=== PATIENT | male | born 1950 ===

== ENCOUNTER 2023-08-28 15:48 | Observation (INO) | payer MEDICARE, OTHER, SELFPAY ==
[2023-08-28] VITALS (9 sets, daily range): BP systolic 125–163; BP diastolic 54–76; BMI 26.8; BMI 25.9
[2023-08-28 12:02] LABS: % Basophils 0.7 % (0-2); % Eosinophils 1.4 % (0-6); % Immature Granulocytes 0.4 % (0-0.5); % Lymphocytes 13.1 % (20.5-51.1); % Monocytes 9.7 % (1.7-9.3); % Neutrophils 74.7 % (42.2-75.2); Absolute Basophils 0.1 10^3/uL (0-0.2); Absolute Eosinophils 0.1 10^3/uL (0-0.7); Absolute Lymphocytes 1.2 10^3/uL (1.2-3.4); Absolute Monocytes 0.9 10^3/uL (0.1-0.6); Absolute Neutrophils 7.1 10^3/uL (1.4-6.5); Hematocrit 29.7 % (39.0-52.0); Hemoglobin 9.8 g/dL (13.0-18.0); Mean Corpuscular Hgb 29.4 pg (27.0-31.0); Mean Corpuscular Volume 89.2 fL (80.0-94.0); Mean Platelet Volume 10.5 fL (7.4-10.4); Nucleated Red Blood Cells % 0 % (-); Platelet Count 175 10^3/uL (130-400); Red Blood Cell Count 3.33 10^6/uL (4.70-6.10); Red Cell Dist. Width 15.2 % (11.5-14.5); White Blood Cell Count 9.5 10^3/uL (4.8-10.8)
[2023-08-28 12:24] LABS: NT-proBNP > 27000 pg/ml
[2023-08-28 12:50] LABS: ALT (SGPT) 17 U/L (0-50); AST (SGOT) 41 U/L (17-59); Albumin 3.1 g/dl (3.5-5.0); Alkaline Phosphatase 72 U/L (38-126); Blood Urea Nitrogen 17 mg/dl (9-20); Calcium 10.1 mg/dl (8.4-10.2); Carbon Dioxide 26 mmol/L (22-30); Chloride 94 mmol/L (98-107); Estimated Creatinine Clearance 8 ml/min; Glucose 91 mg/dl (70-99); Potassium 3.8 mmol/L (3.5-5.1); Sodium 128 mmol/L (135-145); Total Bilirubin 0.8 mg/dl (0.2-1.3); Total Protein 5.5 g/dl (6.3-8.2); eGFR 7.39
[2023-08-28 13:04] LABS: Ammonia < 9 umol/L (9-30); Lactic Acid 1.2 mmol/L (0.7-2.0)
--- NOTE | 2023-08-28 13:48 | ED.GENMED ---
History of Present Illness
General
Chief Complaint: Weakness
Source: patient and family
Time Seen by Provider: 08/28/23 11:41
Travel History
Have you had any contact with someone who has COVID-19?: No
Do you have any symptoms of coronavirus? Fever > 100 degrees, chills, cough, shortness of breath, sore throat, loss of taste or smell, muscle aches, or headache?: No
History of Present Illness
History of Present Illness:
73-year-old male who is on dialysis who presents with lower extremity edema and progressive weakness and lethargy. He states that he has been confused and off balance. He was recently admitted for low hemoglobin to [facility]. Patient is
had no fevers. No trauma. His last dialysis was Monday. Patient states he just feels tired. No new medication changes that daughter is aware of. Patient denies any pain
Past History
Past History
ED Past Medical History: CVA, HTN, Hypercholesterolemia, NIDDM and Other (Prostate cancer)
Phy Exam
Physical Exam
Physical Exam:
CONSTITUTIONAL Patient alert and oriented to person, place and time. Vital signs reviewed.
HEAD atraumatic, normocephalic.
EYES eyelids normal to inspection, Extraocular muscles intact, Conjunctiva normal, Sclera normal.
NECK normal range of motion, Trachea midline, no jugular venous distention.
RESPIRATORY CHEST No respiratory distress noted, Chest expansion equal, Bilateral breath sounds clear.
CARDIOVASCULAR regular rate and rhythm, loud 4-5 out of 6 systolic ejection murmur
ABDOMEN abdomen nontender, Bowel sounds normal. No distention.
BACK normal inspection, no obvious deformities
UPPER EXTREMITY range of motion normal, Motor strength normal, no cyanosis, no edema.
LOWER EXTREMITY range of motion normal, Motor strength normal, no cyanosis, bilateral edema noted
NEURO Speech normal, No focal motor deficits Memory normal, Cranial Nerves intact to screening exam. No asterixis. Sleeping but easily arousable by voice
SKIN skin warm, dry, and normal in color.
Course
Orders/Labs/Results
Orders:
Orders
08/28/23 11:42
IV Insert/Care/Rem.- Treatment PRN
08/28/23 11:48
BNP [NT-proBNP] Urgent
Complete Blood Count/With Diff Urgent
Comprehensive Metabolic Panel Urgent
08/28/23 12:30
CT Head W/o Iv Contrast Stat
Comment:
Reason For Exam: change in ms
Urinalysis Reflex To Culture Urgent
Date Specimen was Collected: 08/28/23
Time Specimen was Collected: 13:55
08/28/23 12:37
Blood Culture Q30M
JANIA Source: Blood/Venous
Specimen Description:
Blood Culture Q30M
JANIA Source: Blood/Venous
Specimen Description:
08/28/23 12:38
Ammonia Urgent
Lactic Acid Q4H
Comment: CANCEL 2nd LACTIC ACID IF 1st LACTIC ACID IS LESS THAN 2
08/28/23 13:53
Electrocardiogram (*1) Urgent
Reason for Study: Other
Other Reason for Exam: Change in mental status
EKG- Treatment ONCE
08/28/23 14:19
Venous Blood Gas Urgent
%Oxygen/Room Air: RA
Abnormal Lab Results
08/28/23 08/28/23
11:48 12:38
RBC 3.33 L 10^6/uL
(4.70-6.10)
Hgb 9.8 L g/dL
(13.0-18.0)
Hct 29.7 L %
(39.0-52.0)
RDW 15.2 H %
(11.5-14.5)
MPV 10.5 H fL
(7.4-10.4)
Absolute Neuts (auto) 7.1 H 10^3/uL
(1.4-6.5)
Absolute Monos (auto) 0.9 H 10^3/uL
(0.1-0.6)
Lymphocytes % 13.1 L %
(20.5-51.1)
Monocytes % 9.7 H %
(1.7-9.3)
Sodium 128 L mmol/L
(135-145)
Chloride 94 L mmol/L
(98-107)
Creatinine 7.2 H* mg/dL
(0.7-1.3)
Ammonia < 9 L umol/L
(9-30)
Total Protein 5.5 L g/dl
(6.3-8.2)
Albumin 3.1 L g/dl
(3.5-5.0)
08/28/23 11:48
08/28/23 11:48
Vital Signs
Initial and Last Documented VS:
Initial Vital Signs
Temp Pulse Resp BP Pulse Ox
98.9 F 73 16 163/66 96
08/28/23 10:57 08/28/23 10:57 08/28/23 10:57 08/28/23 10:57 08/28/23 10:57
Last Documented Vital Signs
Temp Pulse Resp BP Pulse Ox
98.9 F 71 17 125/54 96
08/28/23 10:57 08/28/23 13:15 08/28/23 13:15 08/28/23 12:00 08/28/23 13:15
MDM/Problems Addressed
MDM/Problems Addressed:
Change in mental status, chronic renal failure, volume overload, lower extremity edema, heart murmur
*Radiology
Radiology exam reviewed: preliminary read by ED provider (no bleed)
*Pulse Oximetry
Patient hypoxic: no
*EKG
Interpreted by ED Provider?: Yes
Interpretation: normal
Rate: normal
Rhythm: sinus
QRS Pattern: poor R-wave progression
Ischemia: non-specific ST changes
*Ui Software Developer Interpretation
Rate: normal
Interpretation: normal
Rhythm: sinus
*Critical Care Note
Total Time (30-74mins, 75-104mins- exclusive of procedures): Not Applicable
Data Reviewed
Source: patient
Patient Management
Discussion with other providers: Hospitalist
Escalation/DeEscalation of care consider admission/obs:
73-year-old male with history of end-stage renal disease who presents with lower extremity edema as well as altered mentation. During exam, patient does seem to fall asleep but is easily arousable. Unclear etiology but urinalysis pending (patient
does not make much urine). In addition, blood cultures pending. Check ABG. Admit. Could certainly be metabolic encephalopathy related to chronic renal failure. Patient does have a loud murmur. Daughter states she does not know of a heart
murmur that he has had but I do suspect this is not new. May be contributing however to his lower extremity edema.
ED Attending Note
-
Portions of this chart may have been created with voice recognition software.� Occasional wrong word or��sound alike� substitutions may have occurred due to the inherent limitations of voice recognition software.
Discharge Plan
Departure
Patient Disposition: Admit
Date of Disposition: 08/28/23
Time of Disposition: 14:23
Admit to: Telemetry
Presentation/result/management discussed w/ accepting MD/DO: Hospitalist
Discharge Problem:
Acute alteration in mental status, Chronic renal failure, Heart murmur, systolic
Prescriptions:
No Action
atorvastatin 40 mg Tablet
40 mg PO QPM
carvedilol 25 mg Tablet
25 mg PO BID
clopidogrel [Plavix] 75 mg Tablet
75 mg PO DAILY
amlodipine 5 mg Tablet
5 mg PO DAILY
allopurinol 100 mg Tablet
100 mg PO QPM
aspirin [Baby Aspirin] 81 mg Tablet,Chewable
81 mg PO NOON
cholecalciferol (vitamin D3) [Vitamin D3] 25 mcg (1,000 unit) Tablet,Chewable
25 mcg PO NOON
levothyroxine 50 mcg Capsule
50 mcg PO DAILY
sevelamer carbonate [Renvela] 800 mg Tablet
1,600 mg PO TID
Melyssa-Charleen Rx 1-60-300 mg-mg-mcg Tablet
1 tab PO NOON
Referrals:
Peter Santiago DO [Family Provider] -
Interventions
Interventions:
*Risk Screen - Suicide Last Done: 08/28/23 11:40
*General Assessment Last Done: 08/28/23 11:40
*Neglect/Abuse Screening Last Done: 08/28/23 11:40
ED- Fall Risk Assessment Last Done: 08/28/23 11:41
*ED COVID-19 Vaccine History Last Done: 08/28/23 10:57
ED- Cardiac Assessment Last Done: 08/28/23 11:40
ED- Neurological Assessment Last Done: 08/28/23 11:41
ED- Pulmonary Assessment Last Done: 08/28/23 11:41
[2023-08-28 14:44] LABS: Venous Blood Gas B.E. 3.6 mmol/L (-4 to +4); Venous Blood Gas HCO3 27.7 mmol/L (22-27); Venous Blood Gas pCO2 39 mmHg (35-48); Venous Blood Gas pH 7.46 (7.32-7.43); Venous Blood Gas pO2 190 mmHg (30-50)
[2023-08-28 14:46] LABS: Venous Blood Gas O2 Therapy RA
--- NOTE | 2023-08-28 14:59 | HPS.HSE ---
Addendum entered and electronically signed by Nabor Ferrer MD 08/28/23 15:56:
I saw and examined the patient.
The SKIN FITTER or PA's note was reviewed and I agree with the note.
Comment: 73-year-old male with past medical history of CVA, hypertension, ESRD on hemodialysis, diabetes mellitus, prostate cancer came to the hospital with progressive weakness, lethargy and lower extremity edema. Patient had a full dialysis
session on Monday. Denies any chest pain, shortness of breath. Check PT OT. Duplex lower extremity. Check echo. Nephrology evaluation. Obs, daughter aware
General:�No Apparent Distress, Comfortable and Conversant; No Pain or Fever
HEENT:�NormoCephalic, Anicteric, PERRLA, [place] Conjunctivae, No Ptosis and Other (Chronic left facial droop from prior CVA August 2022)
Respiratory:�Clear; No Wheezes, Rales or Rhonchi
Cardiac:�S1/S2, Regular Rhythm, Murmur (4/6 systolic )
Breast:�Deferred by me
GI:�Soft, Non Tender, Non Distended, Normal Bowel Sounds
Musculoskeletal:�No Clubbing, No Cyanosis, Edema, b/l Lower Extremity edema
Skin:�Warm and Dry; No Rash
Neuro:�AO x 3, No Motor Deficits, Nonfocal/grossly intact
Psych:�Calm
Original Note:
Family Physician
-
Family Physician: Peter Santiago
Chief Complaint
-
Weakness, fatigue, confusion, lower extremity edema
History of Present Illness
73-year-old male end-stage renal disease on dialysis who came to the ER feeling off balance with progressive weakness, lethargy and lower extremity edema over the past 1.5 weeks. He reports his lower legs and feet have doubled in size. He denies
any known adjustments to his dialysis treatment. He states after dialysis on Monday 2 days ago he was 71.1 kg he is currently 75.3 kg= 4.2 KG weight gain. he reports he had a recent admission at [facility] for anemia on August 08. His
daughter states his hemoglobin was 9.3 at the time she does not believe he received any blood transfusion. This appears to be his prior baseline from visit here September 2022. His last dialysis was Monday08/26/23 with [facility]. He denies headache,
fever, chills, sore throat, chest pain, palpitations, shortness breath, cough, abdominal pain, nausea, vomiting, diarrhea, recent illness.
He has past medical history of ESRD on dialysis, HTN, HLD, DM2, CVA 09/05/2022, prostate cancer status post radiation 2017.
Medical History
Past Medical History
Past Medical History: Reports Other
Additional Past Medical History:
ESRD on dialysis
HTN
HLD
DM2
CVA 09/05/2022
prostate cancer.
Past Surgical History: Reports Other
Additional Past Surgical History:
Hernia repair 2021
left arm fistula 2019,
loop recorder 2022
Social History
Tobacco: Non-smoker
Alcohol: None
Drug: None
Personal: Single
Living: With Family (daughter sammi)
Employment: Retired
Family History
Family History: Other (old age )
Allergies / Home Medications
Allergies reflects when Allergies were last updated in [employer].
Home Medications with original date entered in [employer]
Allergy/Medication List:
Allergies
Allergy/AdvReac Type Severity Reaction Status Date / Time
No Known Allergies Allergy Verified 08/28/23 10:59
Home Medications
allopurinol 100 mg tablet 100 mg PO QPM 10/11/22
amlodipine 5 mg tablet 5 mg PO DAILY 10/11/22
aspirin 81 mg chewable tablet 81 mg PO NOON 10/11/22
atorvastatin 40 mg tablet 40 mg PO QPM 10/11/22
carvedilol 25 mg tablet 25 mg PO BID 10/11/22
cholecalciferol (vitamin D3) 25 mcg (1,000 unit) chewable tablet (Vitamin D3) 25 mcg PO NOON 10/11/22
levothyroxine 50 mcg capsule 50 mcg PO DAILY 10/11/22
sevelamer carbonate 800 mg tablet (Renvela) 1,600 mg PO TID 08/28/23
vitamin B comp no.3-folic acid 1 mg-vit C 60 mg-biotin 300 mcg tablet (Melyssa-Charleen Rx) 1 tab PO NOON 08/28/23
Review of Systems
-
History Source: Patient and Family (daughter sammi)
A 12 point ROS was completed and negative except as noted: Yes
Constitutional: Reports Fatigue; Denies Fever or Chills
EENT: Denies Sore Throat or Runny Nose
Respiratory: Denies Cough or Trouble Breathing
Cardiac: Denies Chest Pain, Diaphoresis, Palpitations or Syncope
Abdomen/GI: Denies Abdominal Pain, Nausea, Vomiting, Diarrhea, Constipated, Bloody Stools or Black Stools
: Denies Dysuria or Frequency
Musculoskeletal: Reports Edema (bilat legs +2 legs +3 feet ); Denies Joint Pain
Skin: Denies Itching or Rash
Neurological: Reports Weakness; Denies Dizzy or Headache
Endocrine: Reports No Symptoms
Hematologic/Lymphatic: Reports No Symptoms
Physical Exam
Vital Signs
Vital Signs
Temp Pulse Resp BP Pulse Ox
98.9 F 71 17 125/54 96
08/28/23 10:57 08/28/23 13:15 08/28/23 13:15 08/28/23 12:00 08/28/23 13:15
Physical Exam
General: No Apparent Distress, Comfortable and Conversant; No Pain or Fever
HEENT: NormoCephalic, Anicteric, PERRLA, [place] Conjunctivae, No Ptosis and Other (Chronic left facial droop from prior CVA August 2022)
Respiratory: Clear; No Wheezes, Rales or Rhonchi
Cardiac: S1/S2, Regular Rhythm, Murmur (4/6 systolic ) and Peripheral Edema (+2 legs +3pedal nonpitting)
Breast: Deferred by me
GI: Soft, Non Tender, Non Distended, Normal Bowel Sounds and No Hepatosplenomegaly
Rectal: Deferred by Provider
Genito-urinary: Deferred by me
Musculoskeletal: No Clubbing, No Cyanosis, Edema, Left Lower Extremity (+2 legs +3pedal nonpitting) and Edema, Right Lower Extremity (+2 legs +3pedal nonpitting); No Edema, Left Upper Extremity or Edema, Right Upper Extremity
Skin: Warm and Dry; No Rash
Neuro: AO x 3, No Motor Deficits, Nonfocal/grossly intact, Cranial Nerves Intact and No Sensory Deficits; No Slurred Speech, Facial Droop or Tremors
Psych: Calm
Laboratory Results
-
08/28/23 11:48
08/28/23 11:48
Laboratory Results
Lactic Acid Cancelled 08/28/23 16:45
Total Bilirubin 0.8 mg/dl (0.2-1.3) 08/28/23 11:48
AST 41 U/L (17-59) 08/28/23 11:48
ALT 17 U/L (0-50) 08/28/23 11:48
Alkaline Phosphatase 72 U/L (38-126) 08/28/23 11:48
Data Reviewed
-
Lab Data: Labs Reviewed by me
Impression/Plan
-
Impression/plan:
Observation MedSurg
#Generalized weakness with ambulatory dysfunction
Peripheral edema
-Venous Doppler bilateral legs
-PT/OT/case management eval
#Hyponatremia
NA 128
-Urine Osmo, urine NA, serum Osmo, TSH with free T4 reflex
-Check flu, COVID swab
CT head: No acute intracranial abnormality.
Small areas of encephalomalacia along the right insular cortex probably related to prior ischemia
3 mm calcification right middle cerebral artery? Calcific embolus
EKG: Sinus rhythm with first-degree AV block 73 bpm, QTc 447 MS
#Cardiac murmur ? Old versus new
Will obtain records from [place] [facility] including echo
-2d echo
#ESRD on dialysis
#Left arm fistula 2019
Last dialysis 08/26/2023 dry weight 71.1 kg > 75.3 kg today= 4.2kg wt gain
Creat 7.2
-Consult Nephro
-Continue Renvela
#Chronic anemia
-Recent anemia at [facility]
Hgb 9.8 appears stable from September 2022
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
#Hx loop recorder 2022
-Continue aspirin, statin
#HTN�benign
BP 125/54
-Continue amlodipine 5 mg daily, carvedilol 25 mg twice daily
#Hypothyroidism
-Check TSH with free T4 reflex, continue levothyroxine
#Prostate cancer status post radiation in 2017
DVT prophylaxis
Subcu heparin
Full code
[2023-08-28 15:30] LABS: COVID-19 Antigen Negative (Negative)
--- NOTE | 2023-08-28 16:29 | W.CON.NEPH ---
Consultation
-
Date/Time Consultation Requested: 08/28/23 1600
Date/Time Consultation Performed: 08/28/23 1645
Requesting Provider: Nabor Llamas
Performing Provider: Marga Bojorquez
Reason for Consultation: ESRD
Medical History
-
Chief Complaint: Gen weakness and letahrgy with LE edema
History of Present Illness:
73-year-old male end-stage renal disease on dialysis TTS at [facility] , HTN on Amlodipine, coreg, hyperphosphatemia on Renvela, DM with out meds, hypothyroidism on LT4, CVA, prostate ca who came to the ER feeling off balance with progressive
weakness, lethargy and lower extremity edema over the past 1.5 weeks.�He states after dialysis on Monday 2 days ago he was 71.1 kg he is currently 75.3 kg= 4.2 KG weight gain.� he reports he had a recent admission at [facility] for similar
complaints of weakness and felt was from anemia on August 08.� His daughter states his hemoglobin was 9.3 at the time she does not believe he received any blood transfusion.� This appears to be his prior baseline from visit here September 2022.� His
last dialysis was Monday08/26/23 with [facility], reports no issues with HD getting UF or BPs.� He denies headache, fever, chills, chest pain, shortness breath, cough, abdominal pain, nausea, vomiting, diarrhea, recent illness.
Past Medical History
ESRD on dialysis
�HTN
HLD
�DM2
�CVA 09/05/2022
�prostate cancer.
Past Surgical History:
Hernia repair 2021
�left arm fistula 2019,
�loop recorder 2022
Social History
Tobacco: Non-Smoker
Alcohol: None
Personal: Single
Employment: Retired
Family History
Family History: Not Pertinent
Allergies / Home Medications
Allergy/AdvReac Type Severity Reaction Status Date / Time
No Known Allergies Allergy Verified 08/28/23 10:59
Medication Instructions Recorded Confirmed Type
allopurinol 100 mg tablet 100 mg PO QPM 10/11/22 08/28/23 History
amlodipine 5 mg tablet 5 mg PO DAILY 10/11/22 08/28/23 History
aspirin 81 mg chewable tablet 81 mg PO NOON 10/11/22 08/28/23 History
atorvastatin 40 mg tablet 40 mg PO QPM 10/11/22 08/28/23 History
carvedilol 25 mg tablet 25 mg PO BID 10/11/22 08/28/23 History
cholecalciferol (vitamin D3) 25 25 mcg PO NOON 10/11/22 08/28/23 History
mcg (1,000 unit) chewable tablet
(Vitamin D3)
levothyroxine 50 mcg capsule 50 mcg PO DAILY 10/11/22 08/28/23 History
sevelamer carbonate 800 mg tablet 1,600 mg PO TID 08/28/23 08/28/23 History
(Renvela)
vitamin B comp no.3-folic acid 1 1 tab PO NOON 08/28/23 08/28/23 History
mg-vit C 60 mg-biotin 300 mcg
tablet (Melyssa-Charleen Rx)
Review of Systems
-
All complete 12 point ROS have been inquired and found negative other than stated in HPI
Physical Exam
Vital Signs
Vital Signs
Temp Pulse Resp BP Pulse Ox
98.9 F 70 16 149/76 96
08/28/23 10:57 08/28/23 15:00 08/28/23 15:00 08/28/23 14:00 08/28/23 15:00
Lab Results
WBC 9.5 10^3/uL (4.8-10.8) 08/28/23 11:48
RBC 3.33 10^6/uL (4.70-6.10) L 08/28/23 11:48
Hgb 9.8 g/dL (13.0-18.0) L 08/28/23 11:48
Hct 29.7 % (39.0-52.0) L 08/28/23 11:48
Plt Count 175 10^3/uL (130-400) 08/28/23 11:48
Sodium 128 mmol/L (135-145) L 08/28/23 11:48
Potassium 3.8 mmol/L (3.5-5.1) 08/28/23 11:48
Chloride 94 mmol/L (98-107) L 08/28/23 11:48
Carbon Dioxide 26 mmol/L (22-30) 08/28/23 11:48
BUN 17 mg/dl (9-20) 08/28/23 11:48
Creatinine 7.2 mg/dL (0.7-1.3) H* 08/28/23 11:48
eGFR 7.39 08/28/23 11:48
Glucose 91 mg/dl (70-99) 08/28/23 11:48
Calcium 10.1 mg/dl (8.4-10.2) 08/28/23 11:48
Vff-D-Cjkbtypjhff Pept > 63928 pg/ml 08/28/23 11:48
Albumin 3.1 g/dl (3.5-5.0) L 08/28/23 11:48
CT head:�No acute intracranial abnormality.
�� � � � � � � � � � � � Small areas of encephalomalacia along the right insular cortex probably related to prior ischemia
�� � � � � � � � � � � � 3 mm calcification right middle cerebral artery?� Calcific embolus
� � � � � ��EKG:�Sinus rhythm with first-degree AV block 73 bpm, QTc 447 MS
Physical Exam
General: Awake, Alert, Oriented, AOx3, No Distress and Nontoxic
HEENT: EOMI and Anicteric
Respiratory: Clear and Nonlabored Respirations
Cardiac: S1/S2, Regular Rate/Rhythm and Murmur
Abdomen: Soft, Nontender and Nondistended
Musculoskeletal: No Cyanosis and No Edema
Skin: No Rash
Neuro: Nonfocal/Grossly Intact
Psych: Other (slow to respond, answeres questions appropriately)
Assessment/Plan
-
IMP:
Generalized weakness with ambulatory dysfunction
Peripheral edema
Hyponatremia
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
Left arm fistula 2019
Chronic anemia
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
Hx loop recorder 2022
HTN�benign
Hypothyroidism
Prostate cancer status post radiation in 2017
K stone
PLan:
A/w gen weakness and lethargy for few weeks but LE edema for few days
completed HD on Monday , next HD tomorrow
hemodynamically stable
hb low seem chronic
Edema: agree to check duplex
will attempt UF tomorrow
need strict renal diet and FR 33 ounces/day
echo for murmur
resume home phos binders
hold BP meds before HD to allow UF
d/w daughter at bedside
Data Reviewed
-
Radiology: Report Reviewed by me
Medical Tests (Nuc Med, Echo etc): Other (EKG report noted NSR)
Labs: Labs Reviewed by me and Discussed with Family
[2023-08-28 18:40] LABS: TSH Reflex To Free T4 2.78 uIU/ml (0.47-4.68)
[2023-08-28 18:46] LABS: Osmolality Serum 273 mOsm/kg (275-300)
[2023-08-28] MEDS: LIPITOR 40 MG PO (20:07)
[2023-08-28] MEDS: ZYLOPRIM 100 MG PO (20:08)
[2023-08-28] MEDS: RENVELA 1600 MG PO (20:08)
[2023-08-28] MEDS: COREG 25 MG PO (20:08)
[2023-08-28] MEDS: HEPARIN 5000 UNITS SC (20:09)
[2023-08-28 20:58] LABS: Urine Albumin Trace (Neg - Trace); Urine Bilirubin Negative (Negative); Urine Character Clear (Clear); Urine Color Yellow; Urine Glucose Negative (Negative); Urine Ketone Negative (Negative); Urine Leukocyte Trace (Negative); Urine Nitrite Negative (Negative); Urine Occult Blood Trace (Negative); Urine Urobilinogen Negative (Neg - 1+)
[2023-08-28 21:06] LABS: Urine Red Blood Cell 0-2 /HPF (0-2); Urine Squamous Cell 0-2 /LPF (Few)
[2023-08-28 21:47] LABS: Osmolality Urine 173 mOsm/kg (300-900)
[2023-08-28 21:51] LABS: Urine Sodium 76 mmol/L (30-90)
[2023-08-28 22:21] LABS: Glucose - Point of Care 82 mg/dl (70-99)
--- NOTE | 2023-08-28 23:19 | PTCARENOTE ---
Patient arrived from the ED via stretcher at approximately 1930. Patient ambulated from stretcher to bed x1 assist. Patient complains of generalized weakness. Patient AAOx3, forgetful @ times, and mildly QUILEUTE. VSS as documented. Assessment as
documented. Patient oriented to room. Bed in lowest position. Call rosales within reach.
[2023-08-29] MEDS: SYNTHROID 50 MCG PO (05:11)
[2023-08-29 06:00] VITALS: BMI 25.5
[2023-08-29 06:02] LABS: % Basophils 0.6 % (0-2); % Eosinophils 1.8 % (0-6); % Immature Granulocytes 0.2 % (0-0.5); % Monocytes 9.1 % (1.7-9.3); % Neutrophils 75.3 % (42.2-75.2); Absolute Basophils 0.1 10^3/uL (0-0.2); Absolute Eosinophils 0.2 10^3/uL (0-0.7); Absolute Lymphocytes 1.3 10^3/uL (1.2-3.4); Absolute Monocytes 0.9 10^3/uL (0.1-0.6); Absolute Neutrophils 7.6 10^3/uL (1.4-6.5); Hematocrit 34.1 % (39.0-52.0); Hemoglobin 11.2 g/dL (13.0-18.0); Mean Corp Hgb Conc. 32.8 g/dL (33.0-37.0); Mean Corpuscular Hgb 29.3 pg (27.0-31.0); Mean Corpuscular Volume 89.3 fL (80.0-94.0); Mean Platelet Volume 10.8 fL (7.4-10.4); Nucleated Red Blood Cells % 0 % (-); Platelet Count 174 10^3/uL (130-400); Red Blood Cell Count 3.82 10^6/uL (4.70-6.10); Red Cell Dist. Width 14.9 % (11.5-14.5); White Blood Cell Count 10.1 10^3/uL (4.8-10.8)
[2023-08-29 06:32] LABS: ALT (SGPT) 15 U/L (0-50); AST (SGOT) 29 U/L (17-59); Alkaline Phosphatase 85 U/L (38-126); Blood Urea Nitrogen 22 mg/dl (9-20); Calcium 9.9 mg/dl (8.4-10.2); Carbon Dioxide 25 mmol/L (22-30); Chloride 95 mmol/L (98-107); Estimated Creatinine Clearance 7 ml/min; Glucose 52 mg/dl (70-99); Potassium 3.9 mmol/L (3.5-5.1); Sodium 128 mmol/L (135-145); Total Bilirubin 0.7 mg/dl (0.2-1.3); Total Protein 5.3 g/dl (6.3-8.2); eGFR 6.14
[2023-08-29 07:02] LABS: Glucose - Point of Care 84 mg/dl (70-99)
[2023-08-29 07:05] VITALS: BP 157/67
[2023-08-29] MEDS: NORVASC PO (07:54)
[2023-08-29] MEDS: COREG PO (07:54)
[2023-08-29] MEDS: RENVELA 1600 MG PO ×3 (07:56→17:19)
[2023-08-29] MEDS: HEPARIN 5000 UNITS SC ×2 (07:56→20:06)
[2023-08-29 09:54] LABS: Glucose - Point of Care 73 mg/dl (70-99)
[2023-08-29 09:55] VITALS: BP 158/73; PULSE 69; O2SAT 98
[2023-08-29 10:23] VITALS: BP 158/73; PULSE 72; O2SAT 98
--- NOTE | 2023-08-29 11:06 | W.PN.HOSP.TC ---
Today's Communication/Plan
-
Monitor vital signs see plan
Echo
HD today
Hypoglycemic this morning, improved
Check A1c, Accu-Checks
Assessment / Plan
Assessment / Plan
General:�No Apparent Distress, Comfortable and Conversant; No Pain or Fever
HEENT:�NormoCephalic, Anicteri; Other (Chronic left facial droop from prior CVA August 2022)
Respiratory:�Clear; No Wheezes, Rales or Rhonchi
Cardiac:�S1/S2, Regular Rhythm, Murmur (4/6 systolic )
GI:�Soft, Non Tender, Non Distended, Normal Bowel Sounds
Musculoskeletal:�No Clubbing, No Cyanosis, Edema, b/l Lower Extremity edema
Skin:�Warm and Dry; No Rash
Neuro:�AO x 3, No Motor Deficits, Nonfocal/grossly intact
Psych:�Calm
Generalized weakness with ambulatory dysfunction
Peripheral edema
-Venous Doppler bilateral legs neg for DVT
-PT/OT eval rec home
#Hyponatremia
monitor with HD
�� � � � ��CT head:�No acute intracranial abnormality.
�� � � � � � � � � � � � Small areas of encephalomalacia along the right insular cortex probably related to prior ischemia
�� � � � � � � � � � � � 3 mm calcification right middle cerebral artery?� Calcific embolus
History of diabetes
Not on any medications at home
Check A1c, hypoglycemic 08/28. Cw accuchecks
#Cardiac murmur ?� Old versus new
Will obtain records from [place] [facility]
-2d echo
#ESRD on dialysis
#Left arm fistula 2019
Last dialysis 08/26/2023�
HD per nephrology
-Continue Renvela
#Chronic anemia
-Recent anemia at [facility]
monitor hgb
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
#Hx loop recorder 2022
-Continue aspirin, statin
#HTN
-Continue amlodipine, carvedilol 25
#Hypothyroidism
continue levothyroxine
#Prostate cancer status post radiation in 2018
DVT prophylaxis
Subcu heparin
Full code
Anticipated Discharge: Within 24 hours
Subjective/Interval History
-
Date of Service: August 29, 2023
denies pain
Objective Data
-
Labs:
Laboratory Results
08/29/23
04:58
WBC 10.1
Hgb 11.2 L
Hct 34.1 L
Plt Count 174
Sodium 128 L
Potassium 3.9
Chloride 95 L
Carbon Dioxide 25
BUN 22 H
Creatinine 8.4 H*
Glucose 52 L*
Calcium 9.9
Total Bilirubin 0.7
AST 29
ALT 15
Alkaline Phosphatase 85
Vital Signs:
Vital Signs
Temp Pulse Resp BP Pulse Ox
98.1 F 65 14 157/67 98
08/29/23 07:05 08/29/23 07:05 08/29/23 07:05 08/29/23 07:05 08/29/23 10:46
I&O
08/28/23 08/29/23 08/30/23
06:59 06:59 06:59
Intake Total 380 / 380
Balance 380 / 380
[2023-08-29] MEDS: NEPHROCAP 1 CAPSULE PO (11:18)
[2023-08-29] MEDS: LOW STRENGTH ASPIRIN 81 MG PO (11:18)
[2023-08-29] MEDS: VITAMIN D3 (cholecalciferol) 25 MCG PO (11:18)
[2023-08-29 12:14] LABS: Glucose - Point of Care 93 mg/dl (70-99)
[2023-08-29 13:20] LABS: Glycohemoglobin (HgbA1c) 4.3 % (4.0-5.6)
[2023-08-29] MEDS: HEPARIN 500 UNITS IV ×2 (14:12→14:13)
[2023-08-29] MEDS: RETACRIT 6000 UNITS IV (14:12)
--- NOTE | 2023-08-29 15:04 | W.PN.NEPH.HD ---
Assessment
-
pt seen during HD
vitals stable
UF as tolerates, challenging EDW
pending echo
hypoglycemia this am
FR strictly 33 ounces/day for hyponatremia
AVF functions ok, monitor venous needle
Progress Note - Hemodialysis
-
Date of Service: August 29, 2023
Duration: 30 minutes and 3 hours
Potassium Bath: 3
Calcium Bath: 2.5
Opti-Dialyzer: 160
Ultrafiltration: Other
Blood Flow: 400
Dialysate Flow: 600
Heparin: yesx2
EPO: 6000
[2023-08-29 15:05] VITALS: BP 165/76
--- NOTE | 2023-08-29 15:54 | CM ---
Initial assessment completed with patient who lives with his son and daughter in a 1 story home with 1 step to enter. He was independent [employer], no DME or services. Does not drive. Daughter transports. Patient has been on HD x 3 years. He is on a
-- 6am schedule with [facility] at [facility] in [place]. [facility]acy is [facility] in [place] and PCP is Dr. Peter Santiago. Daughter is HC POA. Therapy recommendation for . Spoke with patient who deferred to daughter, . She would
like [facility] to follow patient. Referral to be sent.
_
[2023-08-29 17:06] LABS: Glucose - Point of Care 66 mg/dl (70-99)
[2023-08-29] MEDS: LIPITOR 40 MG PO (17:19)
[2023-08-29] MEDS: ZYLOPRIM 100 MG PO (17:24)
[2023-08-29 17:25] LABS: Glucose - Point of Care 94 mg/dl (70-99)
[2023-08-29 19:53] LABS: Glucose - Point of Care 98 mg/dl (70-99)
[2023-08-29] MEDS: COREG 25 MG PO (20:06)
[2023-08-29 21:53] LABS: Glucose - Point of Care 88 mg/dl (70-99)
[2023-08-29 23:20] VITALS: BP 155/65
[2023-08-30] MEDS: TYLENOL 650 MG PO (01:53)
[2023-08-30 03:16] LABS: Glucose - Point of Care 83 mg/dl (70-99)
[2023-08-30 05:06] LABS: % Basophils 0.5 % (0-2); % Eosinophils 2.4 % (0-6); % Immature Granulocytes 0.4 % (0-0.5); % Lymphocytes 14.6 % (20.5-51.1); % Monocytes 9.3 % (1.7-9.3); % Neutrophils 72.8 % (42.2-75.2); Absolute Eosinophils 0.2 10^3/uL (0-0.7); Absolute Lymphocytes 1.2 10^3/uL (1.2-3.4); Absolute Monocytes 0.7 10^3/uL (0.1-0.6); Absolute Neutrophils 5.8 10^3/uL (1.4-6.5); Hemoglobin 11.4 g/dL (13.0-18.0); Mean Corp Hgb Conc. 32.6 g/dL (33.0-37.0); Mean Corpuscular Hgb 28.6 pg (27.0-31.0); Mean Corpuscular Volume 87.9 fL (80.0-94.0); Mean Platelet Volume 9.8 fL (7.4-10.4); Nucleated Red Blood Cells % 0 % (-); Platelet Count 173 10^3/uL (130-400); Red Blood Cell Count 3.98 10^6/uL (4.70-6.10); Red Cell Dist. Width 14.7 % (11.5-14.5)
[2023-08-30] MEDS: SYNTHROID 50 MCG PO (05:51)
[2023-08-30 05:58] VITALS: BMI 25.2
[2023-08-30 05:59] LABS: Blood Urea Nitrogen 14 mg/dl (9-20); Carbon Dioxide 27 mmol/L (22-30); Chloride 94 mmol/L (98-107); Estimated Creatinine Clearance 11 ml/min; Glucose 82 mg/dl (70-99); Potassium 4.1 mmol/L (3.5-5.1); Sodium 132 mmol/L (135-145); eGFR 10.44
[2023-08-30 07:00] VITALS: BP 145/71
[2023-08-30 07:06] LABS: Glucose - Point of Care 76 mg/dl (70-99)
[2023-08-30] MEDS: COREG 25 MG PO (08:12)
[2023-08-30] MEDS: NORVASC 5 MG PO (08:12)
[2023-08-30] MEDS: RENVELA 1600 MG PO ×2 (08:12→11:45)
[2023-08-30] MEDS: HEPARIN 5000 UNITS SC (08:13)
[2023-08-30 10:46] LABS: Glucose - Point of Care 115 mg/dl (70-99)
--- NOTE | 2023-08-30 11:03 | W.PN.NEPH.PH ---
Today's Communication / Plan
-
- HD tomorrow
- echo pending
Assessment/Plan
-
IMP:
Generalized weakness with ambulatory dysfunction
Peripheral edema
Hyponatremia
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
Left arm fistula 2019
Chronic anemia
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
Hx loop recorder 2022
HTN�benign
Hypothyroidism
Prostate cancer status post radiation in 2018
K stone
PLan:
A/w gen weakness and lethargy for few weeks but LE edema for few days
HD planned for TThS while inpatient
hemodynamically stable
hb low seem chronic
duplex with no evidence of DVTs
minimal UF tomorrow as blood pressures lower
need strict renal diet and FR 33 ounces/day
echo for murmur
resume home phos binders
hold BP meds before HD to allow UF
-
-
Date of Service: August 30, 2023
CC / HPI / ROS
-
Chief Complaint:
lethargy and weakness
ESRD on HD
History of Present Illness:
HD TThS
generalized weakness
Review of Systems:
feeling well this AM
concerned about dental appointment
Labs
-
Labs:
WBC 8.0 10^3/uL (4.8-10.8) 08/30/23 03:57
RBC 3.98 10^6/uL (4.70-6.10) L 08/30/23 03:57
Hgb 11.4 g/dL (13.0-18.0) L 08/30/23 03:57
Hct 35.0 % (39.0-52.0) L 08/30/23 03:57
Plt Count 173 10^3/uL (130-400) 08/30/23 03:57
Sodium 132 mmol/L (135-145) L 08/30/23 03:57
Potassium 4.1 mmol/L (3.5-5.1) 08/30/23 03:57
Chloride 94 mmol/L (98-107) L 08/30/23 03:57
Carbon Dioxide 27 mmol/L (22-30) 08/30/23 03:57
BUN 14 mg/dl (9-20) 08/30/23 03:57
Creatinine 5.4 mg/dL (0.7-1.3) H* 08/30/23 03:57
eGFR 10.44 08/30/23 03:57
Glucose 82 mg/dl (70-99) 08/30/23 03:57
Calcium 10.0 mg/dl (8.4-10.2) 08/30/23 03:57
Zfz-N-Gcultpvjsyy Pept > 82709 pg/ml 08/28/23 11:48
Albumin 3.0 g/dl (3.5-5.0) L 08/29/23 04:58
Physical Exam
-
Vital Signs:
Vital Signs
Temp Pulse Resp BP Pulse Ox
98.1 F 76 12 145/71 97
08/30/23 07:00 08/30/23 08:12 08/30/23 07:00 08/30/23 08:12 08/30/23 10:56
Cardiovascular:: Regular rate and rhythm (+ murmur)
Respiratory:: Bilateral: Coarse
Lung Excursion:: Normal
Abdomen:: Nontender and Soft
Bowel Sounds:: Normal
Extremity Edema:: +3: Bilateral:
Traylor Catheter: No
--- NOTE | 2023-08-30 11:40 | W.PN.HOSP.TC ---
Addendum entered and electronically signed by Nabor Ferrer MD 08/30/23 16:33:
echo with normal EF. stage 2 diastolic dysfunction. mod mitral and aortic stenosis. 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
time of discharge 37 minutes
Original Note:
Today's Communication/Plan
-
Monitor vitals
Pending echo
HD per nephrology
Hopeful discharge if echo ok
Assessment / Plan
Assessment / Plan
General:�No Apparent Distress, Comfortable and Conversant; No Pain or Fever
HEENT:�NormoCephalic, Anicteri; Other (Chronic left facial droop from prior CVA August 2022)
Respiratory:�Clear; No Wheezes, Rales or Rhonchi
Cardiac:�S1/S2, Regular Rhythm, Murmur (4/6 systolic )
GI:�Soft, Non Tender, Non Distended, Normal Bowel Sounds
Musculoskeletal:�No Clubbing, No Cyanosis, Edema, b/l Lower Extremity edema
Skin:�Warm and Dry; No Rash
Neuro:�AO x 3, No Motor Deficits, Nonfocal/grossly intact
Psych:�Calm
Generalized weakness with ambulatory dysfunction
Peripheral edema
-Venous Doppler bilateral legs neg for DVT
-PT/OT eval rec home
#Hyponatremia
monitor with HD
�� � � � ��CT head:�No acute intracranial abnormality.
�� � � � � � � � � � � � Small areas of encephalomalacia along the right insular cortex probably related to prior ischemia
�� � � � � � � � � � � � 3 mm calcification right middle cerebral artery?� Calcific embolus
History of diabetes
Not on any medications at home
A1c 4's, hypoglycemic 08/28. Cw accuchecks. now improved.
#Cardiac murmur ?� Old versus new
-2d echo
#ESRD on dialysis
#Left arm fistula 2019
Last dialysis 08/26/2023�
HD per nephrology
-Continue Renvela
#Chronic anemia
-Recent anemia at [facility]
monitor hgb
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
#Hx loop recorder 2022
-Continue aspirin, statin
#HTN
-Continue amlodipine, carvedilol 25
#Hypothyroidism
continue levothyroxine
#Prostate cancer status post radiation in 2018
DVT prophylaxis
Subcu heparin
Full code
Anticipated Discharge: Within 24 hours
Subjective/Interval History
-
Date of Service: August 30, 2023
Denies pain
Objective Data
-
Labs:
Laboratory Results
08/30/23
03:57
WBC 8.0
Hgb 11.4 L
Hct 35.0 L
Plt Count 173
Sodium 132 L
Potassium 4.1
Chloride 94 L
Carbon Dioxide 27
BUN 14
Creatinine 5.4 H*
Glucose 82
Calcium 10.0
Vital Signs:
Vital Signs
Temp Pulse Resp BP Pulse Ox
98.1 F 76 12 145/71 97
08/30/23 07:00 08/30/23 08:12 08/30/23 07:00 08/30/23 08:12 08/30/23 10:56
I&O
08/29/23 08/30/23 08/31/23
06:59 06:59 06:59
Intake Total 380 / 380 1340 / 1340
Balance 380 / 380 1340 / 1340
[2023-08-30] MEDS: NEPHROCAP 1 CAPSULE PO (11:45)
[2023-08-30] MEDS: LOW STRENGTH ASPIRIN 81 MG PO (11:46)
[2023-08-30] MEDS: VITAMIN D3 (cholecalciferol) 25 MCG PO (11:46)
[2023-08-30 11:52] LABS: Glucose - Point of Care 101 mg/dl (70-99)
--- NOTE | 2023-08-30 12:18 | VNURNOTE ---
Home Health Liaison met with patient at 1130 to discuss [facility] nurse/therapy, visits, schedule and homebound status. Patient is agreeable and understands that visits at home will be 2-3 x per week to assess and teach medical management.
[facility] brochure provided with contact information. Patient is aware that [facility] will contact him for start of care in 1-2 days after discharge from .
Call to patient's daughter now to discuss above and answer questions.
[facility] referral updated in [facility].
--- NOTE | 2023-08-30 16:14 | CM ---
Pending review of ECHO results. Discharge plan of care: Home with no needs.
--- NOTE | 2023-08-30 16:34 | W.DCSUMMARY ---
Discharge Summary
Discharge Data
Date of Admission: 08/28/23
Date of Discharge: 08/30/23
-
Pending Results: No
Hospital Course
73-year-old male with past medical history of ESRD on hemodialysis, chronic anemia, CVA, hypertension, hypothyroidism, prostate cancer came to the hospital with generalized weakness and ambulatory dysfunction. Patient also had lower extremity edema
for which venous Doppler was done which was negative for DVT. Patient was also seen by PT who recommended home health. Patient also had this cardiac murmur which patient and family was not aware of. Echocardiogram was done which showed moderate
mitral and aortic stenosis with stage II diastolic dysfunction. Patient was instructed to follow-up with his own lab aide soon outpatient. Patient symptoms were likely thought to was secondary to possible periods of hypoglycemia for which she
was instructed to check his blood sugar at home. Over time patient symptoms improved and he was discharged home with instructions to follow-up with all his physicians outpatient.
Discharge Plan
-
Patient Disposition: Home (Routine Discharge)
Discharge Diagnosis/Procedures: Generalized weakness with ambulatory dysfunction
Peripheral edema
cardiac murmur secondary to mitral and aortic stenosis
Hypoglycemia
Hyponatremia
Diet: As tolerated
Activity: As tolerated
Driving Restrictions: As prior to admission
Bathing Restrictions: None
Activity Restrictions/Additional Instructions:
Please follow-up with your lab aide outpatient for further management of your valvular stenosis
Referrals:
Peter Santiago DO [Family Provider] - in less than 1 week
Prescriptions:
Continued
atorvastatin 40 mg Tablet
40 mg PO QPM
carvedilol 25 mg Tablet
25 mg PO BID
amlodipine 5 mg Tablet
5 mg PO DAILY
allopurinol 100 mg Tablet
100 mg PO QPM
aspirin 81 mg Tablet,Chewable
81 mg PO NOON
cholecalciferol (vitamin D3) [Vitamin D3] 25 mcg (1,000 unit) Tablet,Chewable
25 mcg PO NOON
levothyroxine 50 mcg Capsule
50 mcg PO DAILY
sevelamer carbonate [Renvela] 800 mg Tablet
1,600 mg PO TID
Melyssa-Charleen Rx 1-60-300 mg-mg-mcg Tablet
1 tab PO NOON
Discharge Orders:
Discharge Patient (As Directed); Ordered 08/30/23
Ordered By: Nabor Ferrer
Discharge Date and Time
Discharge Date/Time: 08/30/23 17:56
--- NOTE | 2023-08-30 16:52 | CM ---
Patient has been medically cleared for discharge to home with [facility], PT/OT services. Patient preference is . Referral will be sent. Daughter will transport home.
--- NOTE | 2023-08-30 17:53 | PTCARENOTE ---
Patient discharged home, transported by daughter. This RN reviewed discharge instructions and medications with patient who verbalized understanding. IV removed by this RN, patient dressed and belongings gathered independently. Patient taken down to
daughter's car via staff escort and wheelchair.
== END 2023-08-30 17:56 | disposition home or self-care (01) ==
LOC: 2 NORTH 15:48
PROVIDERS: Clinical Nurse Specialist Family Health; ADMITTING PHYSICIAN Internal Medicine; CONSULT PHYSICIAN Internal Medicine; EMERGENCY PHYSICIAN Emergency Medicine; FAMILY PHYSICIAN General Practice
DX: R53.1 Weakness (principal); R26.9 Unspecified abnormalities of gait and mobility; R60.0 Localized edema; I12.0 Hypertensive chronic kidney disease with stage 5 chronic kidney disease or end stage renal disease; E11.22 Type 2 diabetes mellitus with diabetic chronic kidney disease; N18.6 End stage renal disease; E87.1 Hypo-osmolality and hyponatremia; I44.0 Atrioventricular block, first degree; I69.392 Facial weakness following cerebral infarction; E11.649 Type 2 diabetes mellitus with hypoglycemia without coma; R01.1 Cardiac murmur, unspecified; D63.1 Anemia in chronic kidney disease; E03.9 Hypothyroidism, unspecified; R41.82 Altered mental status, unspecified; R53.83 Other fatigue; E78.00 Pure hypercholesterolemia, unspecified; Z99.2 Dependence on renal dialysis; Z85.46 Personal history of malignant neoplasm of prostate; Z79.02 Long term (current) use of antithrombotics/antiplatelets; Z79.82 Long term (current) use of aspirin; Z79.890 Hormone replacement therapy; Z92.3 Personal history of irradiation; Z11.52 Encounter for screening for COVID-19
CPT/HCPCS: 70450; 80048; 80053; 81003; 81015; 82140; 82805; 82962; 83036; 83605; 83880; 83930; 83935; 84300; 84443; 85025; 87040; 87070; 87502; 87811; 93005; 93306; 93970; 97116; 97162; 97166; 99285; G0257; G0378; P9047; Q5106

== ENCOUNTER 2023-09-13 16:22 | Inpatient (IN) | payer MEDICARE, OTHER, SELFPAY ==
[2023-09-13] VITALS (10 sets, daily range): BP systolic 131–155; BP diastolic 56–73; BMI 25.5
[2023-09-13 11:47] LABS: Glucose - Point of Care 77 mg/dl (70-99)
[2023-09-13 12:55] LABS: % Basophils 0.5 % (0-2); % Eosinophils 0.4 % (0-6); % Immature Granulocytes 0.5 % (0-0.5); % Lymphocytes 10.1 % (20.5-51.1); % Monocytes 9.6 % (1.7-9.3); % Neutrophils 78.9 % (42.2-75.2); Absolute Basophils 0.1 10^3/uL (0-0.2); Absolute Immature Granulocytes 0.1 10^3/uL (0-0.05); Absolute Lymphocytes 1.1 10^3/uL (1.2-3.4); Absolute Neutrophils 8.3 10^3/uL (1.4-6.5); Hematocrit 35.7 % (39.0-52.0); Hemoglobin 11.4 g/dL (13.0-18.0); Mean Corp Hgb Conc. 31.9 g/dL (33.0-37.0); Mean Corpuscular Hgb 28.4 pg (27.0-31.0); Mean Corpuscular Volume 88.8 fL (80.0-94.0); Mean Platelet Volume 9.3 fL (7.4-10.4); Nucleated Red Blood Cells % 0 % (-); Platelet Count 188 10^3/uL (130-400); Red Blood Cell Count 4.02 10^6/uL (4.70-6.10); White Blood Cell Count 10.6 10^3/uL (4.8-10.8)
[2023-09-13 13:14] LABS: ALT (SGPT) 29 U/L (0-50); AST (SGOT) 74 U/L (17-59); Albumin 2.8 g/dl (3.5-5.0); Alkaline Phosphatase 141 U/L (38-126); Blood Urea Nitrogen 14 mg/dl (9-20); Calcium 9.3 mg/dl (8.4-10.2); Carbon Dioxide 25 mmol/L (22-30); Chloride 96 mmol/L (98-107); Glucose 80 mg/dl (70-99); Lipase 177 U/L (23-300); Potassium 3.8 mmol/L (3.5-5.1); Sodium 126 mmol/L (135-145); Total Bilirubin 1.1 mg/dl (0.2-1.3); Total Protein 5.2 g/dl (6.3-8.2); eGFR 12.02
[2023-09-13 13:22] LABS: NT-proBNP > 27000 pg/ml; Troponin I 0.045 ng/ml
--- NOTE | 2023-09-13 13:24 | ED.GENMED ---
History of Present Illness
General
Chief Complaint: Weakness
Source: patient
Exam Limitations: none
Time Seen by Provider: 09/13/23 12:28
Nursing documentation reviewed up to this point in time: agreed with
Travel History
Have you had any contact with someone who has COVID-19?: No
Do you have any symptoms of coronavirus? Fever > 100 degrees, chills, cough, shortness of breath, sore throat, loss of taste or smell, muscle aches, or headache?: No
History of Present Illness
History of Present Illness:
73-year-old male with past medical history of end-stage renal disease currently getting dialysis Monday diabetes, previous stroke hypertension hyperlipidemia presenting to the emergency department today with concerns of
generalized weakness fatigue confusion over the past few days. Had similar episode a few weeks ago and was admitted to the hospital. Apparently his blood pressure was relatively high and his blood sugar was low prior to arrival. He denies any
specific symptoms here.
Past History
Past History
ED Past Medical History: CVA, HTN, Hypercholesterolemia, NIDDM and Other (Prostate cancer)
Review of Systems
Review of Systems
Allergies reviewed?: Yes
All Other Systems: ROS reviewed and negative except as documented in HPI and ROS
Phy Exam
Physical Exam
Physical Exam:
GENERAL: Alert , in no apparent distress
EYE: pupils equal and reactive
NECK: Supple, no significant adenopathy.
ENT: o/p clr, mmm.
CARDIAC: Regular rate and rhythm .
LUNGS: Clear breath sounds bilaterally, no acute respiratory distress, no wheezes/rales/rhonchi
ABDOMEN: Soft, without focal tenderness, no r/g, no cvat
NEUROLOGICAL: Alert and oriented, no focal neuro deficits
SKIN: Warm and dry, skin intact.
MUSCULOSKELETAL: No edema, well perfused.
PSYCH: Normal and appropriate interaction.
Course
Orders/Labs/Results
Orders:
Orders
09/13/23 12:37
Electrocardiogram (*1) Stat
Reason for Study: Abdominal Pain
EKG- Treatment ONCE
Urinalysis Reflex To Culture Urgent
09/13/23 12:48
Complete Blood Count/With Diff Urgent
Comprehensive Metabolic Panel Urgent
Free T4 Urgent
Lipase Urgent
Pro-BNP [NT-proBNP] Urgent
TSH Reflex To Free T4 Urgent
Comment: ADD ON
Troponin I Urgent
09/13/23 12:55
Add On- LAB Urgent
Tests Added?: tsh free t4
Abnormal Lab Results
09/13/23
12:48
RBC 4.02 L 10^6/uL
(4.70-6.10)
Hgb 11.4 L g/dL
(13.0-18.0)
Hct 35.7 L %
(39.0-52.0)
MCHC 31.9 L g/dL
(33.0-37.0)
RDW 15.0 H %
(11.5-14.5)
Abs Immat Gran (auto) 0.1 H 10^3/uL
(0-0.05)
Absolute Neuts (auto) 8.3 H 10^3/uL
(1.4-6.5)
Absolute Lymphs (auto) 1.1 L 10^3/uL
(1.2-3.4)
Absolute Monos (auto) 1.0 H 10^3/uL
(0.1-0.6)
Neutrophils % 78.9 H %
(42.2-75.2)
Lymphocytes % 10.1 L %
(20.5-51.1)
Monocytes % 9.6 H %
(1.7-9.3)
Sodium 126 L mmol/L
(135-145)
Chloride 96 L mmol/L
(98-107)
Creatinine 4.8 H* mg/dL
(0.7-1.3)
AST 74 H U/L
(17-59)
Alkaline Phosphatase 141 H U/L
(38-126)
Troponin I 0.045 H* ng/ml
Total Protein 5.2 L g/dl
(6.3-8.2)
Albumin 2.8 L g/dl
(3.5-5.0)
TSH (Reflex) 7.76 H uIU/ml
(0.47-4.68)
09/13/23 12:48
09/13/23 12:48
Vital Signs
Initial and Last Documented VS:
Initial Vital Signs
Temp Pulse Resp BP Pulse Ox
98.1 F 65 16 149/66 94
09/13/23 11:45 09/13/23 11:45 09/13/23 11:45 09/13/23 11:45 09/13/23 11:45
Last Documented Vital Signs
Temp Pulse Resp BP Pulse Ox
98.1 F 69 16 134/61 97
09/13/23 11:45 09/13/23 15:00 09/13/23 15:00 09/13/23 15:00 09/13/23 15:00
MDM/Problems Addressed
MDM/Problems Addressed:
73-year-old male presenting to the emergency department today with concerns of generalized weakness fatigue worsening over the past few days. Also has had some slight increasing swelling of his lower extremities. Does have end-stage renal disease
and has been getting his dialysis sessions. Last session was yesterday. On arrival vital signs here are sugar level in the 70s labs were obtained showing a low sodium level 126 which could be contributing the patient's altered mental status
creatinine at patient's baseline mildly elevated troponin level BNP greater than 27,000. Considering the patient's altered mental status significant weakness fatigue plan to admit for further treatment and monitoring.
*Critical Care Note
Total Time (30-74mins, 75-104mins- exclusive of procedures): Not Applicable
ED Attending Note
-
Portions of this chart may have been created with voice recognition software.� Occasional wrong word or��sound alike� substitutions may have occurred due to the inherent limitations of voice recognition software.
Discharge Plan
Departure
Patient Disposition: Admit
Date of Disposition: 09/13/23
Time of Disposition: 15:11
Admit to: Telemetry
Admit to doctor: Jad
Presentation/result/management discussed w/ accepting MD/DO: Hospitalist
Patient with high blood pressure during this ER visit?: No
Condition: Good
Covid-19: Not Applicable
Discharge Problem:
Hyponatremia, AMS (altered mental status)
Prescriptions:
No Action
atorvastatin 40 mg Tablet
40 mg PO QPM
carvedilol 25 mg Tablet
25 mg PO BID
amlodipine 5 mg Tablet
5 mg PO DAILY
allopurinol 100 mg Tablet
100 mg PO QPM
aspirin 81 mg Tablet,Chewable
81 mg PO NOON
cholecalciferol (vitamin D3) [Vitamin D3] 25 mcg (1,000 unit) Tablet,Chewable
25 mcg PO NOON
levothyroxine 50 mcg Capsule
50 mcg PO DAILY
sevelamer carbonate [Renvela] 800 mg Tablet
1,600 mg PO TID
Melyssa-Charleen Rx 1-60-300 mg-mg-mcg Tablet
1 tab PO NOON
clopidogrel [Plavix] 75 mg Tablet
75 mg PO DAILY
Referrals:
Peter Santiago DO [Family Provider] -
Interventions
Interventions:
*Risk Screen - Suicide Last Done: 09/13/23 11:45
*General Assessment Last Done: 09/13/23 11:45
*Neglect/Abuse Screening Last Done: 09/13/23 11:45
ED- Fall Risk Assessment Last Done: 09/13/23 11:59
*ED COVID-19 Vaccine History Last Done: 09/13/23 11:59
ED- Cardiac Assessment Last Done: 09/13/23 11:59
ED- Neurological Assessment Last Done: 09/13/23 11:59
ED- Pulmonary Assessment Last Done: 09/13/23 11:59
Discharge Date and Time
Print Language: SAMI
[2023-09-13 14:51] LABS: TSH Reflex To Free T4 7.76 uIU/ml (0.47-4.68)
[2023-09-13 15:20] LABS: Free T4 1.43 ng/dl (0.78-2.19)
--- NOTE | 2023-09-13 15:42 | W.CON.NEPH ---
Consultation
-
Date/Time Consultation Requested: September 13, 2023/3:30 PM
Date/Time Consultation Performed: September 13, 2023 3:30 PM
Requesting Provider: Yuli
Performing Provider: oralia
Reason for Consultation: ESRD
Medical History
-
Chief Complaint: Gen weakness and letahrgy with LE edema
History of Present Illness:
73-year-old male end-stage renal disease on dialysis TTS at [facility] , HTN on Amlodipine, coreg, hyperphosphatemia on Renvela, DM with out meds, hypothyroidism on LT4, CVA, prostate ca who came to the ER feeling generalized weakness and
faigue, lethargy and lower extremity edema. He was just admitted a week ago here for similar complaints .EDW ~71.5kg.� he reports he had a recent admission at [facility] for similar complaints of weakness and felt was from anemia on July
.� His last dialysis was yeser with [facility], reports no issues with HD getting UF or BPs.� He denies headache, fever, chills, chest pain, shortness breath, cough, abdominal pain, nausea, vomiting, diarrhea, recent illness.
Past Medical History
ESRD on dialysis TTS
HTN
HLD
DM2
Hypothyroidism
[facility] 09/05/2022
prostate cancer.
Past Surgical History:
Hernia repair 2021
�left arm fistula 2019,
�loop recorder 2022
Social History
Tobacco: Non-Smoker
Alcohol: None
Personal: Single
Employment: Retired
Family History
Family History: Not Pertinent
Allergies / Home Medications
Allergy/AdvReac Type Severity Reaction Status Date / Time
No Known Allergies Allergy Verified 09/13/23 11:45
�Medication �Instructions �Recorded �Confirmed �Type
allopurinol 100 mg tablet 100 mg PO QPM Gout 10/11/22 09/13/23 History
amlodipine 5 mg tablet 5 mg PO DAILY Blood Pressure 10/11/22 09/13/23 History
aspirin 81 mg chewable tablet 81 mg PO NOON Blood Clot 10/11/22 09/13/23 History
Prevention/Tx
atorvastatin 40 mg tablet 40 mg PO QPM High Cholesterol 10/11/22 09/13/23 History
carvedilol 25 mg tablet 25 mg PO BID Blood Pressure 10/11/22 09/13/23 History
cholecalciferol (vitamin D3) 25 25 mcg PO NOON Supplement 10/11/22 09/13/23 History
mcg (1,000 unit) chewable tablet
(Vitamin D3)
levothyroxine 50 mcg capsule 50 mcg PO DAILY Thyroid 10/11/22 09/13/23 History
sevelamer carbonate 800 mg tablet 1,600 mg PO TID Kidney Disease 08/28/23 09/13/23 History
(Renvela)
vitamin B comp no.3-folic acid 1 1 tab PO NOON Supplement 08/28/23 09/13/23 History
mg-vit C 60 mg-biotin 300 mcg
tablet (Melyssa-Charleen Rx)
clopidogrel 75 mg tablet (Plavix) 75 mg PO DAILY 09/13/23 09/13/23 History
Review of Systems
-
History Source: Patient
All other systems: Negative unless noted
Constitutional: Weight Gain and Fatigue
EENT: No Symptoms
Respiratory: No Symptoms
Cardiac: No Symptoms
Abdomen/GI: No Symptoms
: No Symptoms
Musculoskeletal: Edema
Skin: No Symptoms
Neurological: No Symptoms
Endocrine: No Symptoms
Hematologic/Lymphatic: Other (Left upper extremity AV fistula)
Physical Exam
Vital Signs
Vital Signs
Temp Pulse Resp BP Pulse Ox
98.1 F 69 16 134/61 97
09/13/23 11:45 09/13/23 15:00 09/13/23 15:00 09/13/23 15:00 09/13/23 15:00
Lab Results
09/13/23 12:48
09/13/23 12:48
WBC 10.6 10^3/uL (4.8-10.8) 09/13/23 12:48
RBC 4.02 10^6/uL (4.70-6.10) L 09/13/23 12:48
Hgb 11.4 g/dL (13.0-18.0) L 09/13/23 12:48
Hct 35.7 % (39.0-52.0) L 09/13/23 12:48
Plt Count 188 10^3/uL (130-400) 09/13/23 12:48
Sodium 126 mmol/L (135-145) L 09/13/23 12:48
Potassium 3.8 mmol/L (3.5-5.1) 09/13/23 12:48
Chloride 96 mmol/L (98-107) L 09/13/23 12:48
Carbon Dioxide 25 mmol/L (22-30) 09/13/23 12:48
BUN 14 mg/dl (9-20) 09/13/23 12:48
Creatinine 4.8 mg/dL (0.7-1.3) H* 09/13/23 12:48
eGFR 12.02 09/13/23 12:48
Glucose 80 mg/dl (70-99) 09/13/23 12:48
Calcium 9.3 mg/dl (8.4-10.2) 09/13/23 12:48
Aky-Q-Bzyvsckttdw Pept > 92913 pg/ml 09/13/23 12:48
Albumin 2.8 g/dl (3.5-5.0) L 09/13/23 12:48
Physical Exam
General: AOx3 and No Distress
HEENT: PERRL, EOMI, Anicteric, Conjunctivae Clear, Ear/Nose Intact, Hearing Normal, Oropharynx Clear/Moist, Trachea Midline, No JVD and No Thyromegaly
Respiratory: Clear
Cardiac: S1/S2 and Regular Rate/Rhythm
Breast: Deferred by me
Abdomen: Nontender, Nondistended, Normal Bowel Sounds and No Hepatosplenomegaly
Rectal: Deferred by Provider
Genito-urinary: No Costovertebral Tender and Clear Urine
Musculoskeletal: No Clubbing, No Cyanosis, No Edema and Other (Left upper extremity AV fistula with aneurysmal dilatation good thrill and bruit)
Skin: No Rash, Normal Turgor and No Bruising
Neuro: Nonfocal/Grossly Intact and CN II-XII (Intact)
Hematologic/Lymphatic: No Cervical Lymphadenopathy, No Submandibular Lymphadenopathy and No Supraclavicular Lymphadenopathy
Psych: Mood/afflect pleasant and Insight/judgement good
Assessment/Plan
-
IMP:
Generalized weakness with ambulatory dysfunction edema
Peripheral edema
Hyponatremia
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
Left arm fistula 2019
Chronic anemia
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
Hx loop recorder 2022
HTN�benign
Hypothyroidism
Prostate cancer status post radiation in 2017
History of nephrolithiasis
Aortic stenosis
PLan:
HD tomorrow,orders provided
HD planned for TThS while inpatient , will attempt to reduce dry weight as hemodynamically tolerated
VONDA as needed on dialysis for anemia
duplex with no evidence of DVTs per last admission
need strict renal diet and FR 33 ounces/day re: hyponatremia
resume home phos binders with meals already hyperphosphatemia
hold BP meds before HD to allow UF , may attempt to reduce amlodipine in regards to edema if blood pressure tolerates
Data Reviewed
-
Radiology: Report Reviewed by me (EKG report reviewed sinus rhythm with first-degree AV block questionable anterior infarct pattern 64 bpm per report)
Labs: Labs Reviewed by me (CBC BMP reviewed by me)
Old Records: Reviewed (Reviewed last nephrology ESRD consultation from August 28 2023)
--- NOTE | 2023-09-13 16:08 | HPS.HSE ---
Family Physician
<Cynthia Rudd PA-C - Last Filed: 09/13/23 16:25>
-
Family Physician: Peter Santiago
Chief Complaint
<Cynthia Rudd PA-C - Last Filed: 09/13/23 16:25>
-
Weakness
History of Present Illness
Patient is a 73 y/o male past medical history of ESRD on HD, hypertension, hyperlipidemia, prior stroke who presents generalized weakness and fatigue. Additional history is obtain from patient's family at the bedside. Patient was seen by his
visiting nurse today who noted him to be more weak and tired today. They noted his BP to be elevated and his sugar to be on the low side which prompted patient to come to the emergency department for evaluation. Daughter has noted some edema in
his leg, but also noted patient's face appears swollen. Patient denies any shortness of breath or chest pain.
Medical History
<Cynthia Rudd PA-C - Last Filed: 09/13/23 16:25>
Past Medical History
Past Medical History: Reports Other
Additional Past Medical History:
ESRD on HD
Valvular Heart Disease: Moderate Mitral Stenosis, Moderate Aortic Stenosis
Essential Hypertension
Hyperlipidemia
Hypothyroidism
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
Prostate Cancer s/p Radiation
Past Surgical History: Reports Other
Additional Past Surgical History:
Hernia Repair
Left Upper Ext AV Fistula
Social History
Tobacco: Non-smoker
Alcohol: None
Drug: None
Personal: Single
Living: With Family (Daughter, )
Employment: Retired
Family History
Family History: Other (old age )
Allergies / Home Medications
Allergies reflects when Allergies were last updated in [employer].
Home Medications with original date entered in [employer]
Allergy/Medication List:
Allergies
Allergy/AdvReac Type Severity Reaction Status Date / Time
No Known Allergies Allergy Verified 09/13/23 11:45
Home Medications
allopurinol 100 mg tablet 100 mg PO QPM Gout 10/11/22
amlodipine 5 mg tablet 5 mg PO DAILY Blood Pressure 10/11/22
aspirin 81 mg chewable tablet 81 mg PO NOON Blood Clot Prevention/Tx 10/11/22
atorvastatin 40 mg tablet 40 mg PO QPM High Cholesterol 10/11/22
carvedilol 25 mg tablet 25 mg PO BID Blood Pressure 10/11/22
cholecalciferol (vitamin D3) 25 mcg (1,000 unit) chewable tablet (Vitamin D3) 25 mcg PO NOON Supplement 10/11/22
levothyroxine 50 mcg capsule 50 mcg PO DAILY Thyroid 10/11/22
sevelamer carbonate 800 mg tablet (Renvela) 1,600 mg PO TID Kidney Disease 08/28/23
vitamin B comp no.3-folic acid 1 mg-vit C 60 mg-biotin 300 mcg tablet (Melyss[facility]) 1 tab PO NOON Supplement 08/28/23
clopidogrel 75 mg tablet (Plavix) 75 mg PO DAILY 09/13/23
Review of Systems
<Cynthia Rudd PA-C - Last Filed: 09/13/23 16:25>
-
A 12 point ROS was completed and negative except as noted: Yes
Constitutional: Denies Fever or Chills
Respiratory: Denies Cough or Trouble Breathing
Cardiac: Denies Chest Pain or Palpitations
Physical Exam
<Cynthia Rudd PA-C - Last Filed: 09/13/23 16:25>
Vital Signs
Vital Signs
Temp Pulse Resp BP Pulse Ox
98.1 F 69 16 134/61 97
09/13/23 11:45 09/13/23 15:00 09/13/23 15:00 09/13/23 15:00 09/13/23 15:00
Physical Exam
General: Comfortable and Conversant
HEENT: Anicteric and Moist mucous membranes
Respiratory: Clear and Non Labored Respirations
Cardiac: S1/S2, Regular Rhythm, Murmur (3/6 systolic murmur) and JVD
GI: Soft and Non Tender
Rectal: Deferred by Provider
Musculoskeletal: No Clubbing, No Cyanosis and Other (+1 edema bilateral lower extremity)
Skin: Warm, Dry and Other (LUE AV Fistula with good thrill)
Neuro: Awake, Alert, Oriented and Facial Droop (Left - Chronic )
Psych: Calm
Laboratory Results
<Cynthia Rudd PA-C - Last Filed: 09/13/23 16:25>
-
09/13/23 12:48
09/13/23 12:48
Laboratory Results
Total Bilirubin 1.1 mg/dl (0.2-1.3) 09/13/23 12:48
AST 74 U/L (17-59) H 09/13/23 12:48
ALT 29 U/L (0-50) 09/13/23 12:48
Alkaline Phosphatase 141 U/L (38-126) H 09/13/23 12:48
Troponin I 0.045 ng/ml H* 09/13/23 12:48
Lipase 177 U/L (23-300) 09/13/23 12:48
Data Reviewed
<Cynthia Rudd PA-C - Last Filed: 09/13/23 16:25>
-
Lab Data: Labs Reviewed by me
Old Records: Reviewed
Impression/Plan
<Cynthia Rudd PA-C - Last Filed: 09/13/23 16:25>
-
Acute Volume Overload / Hypervolemic Hyponatremia
ESRD on HD [facility]
-Consult Nephrology
-Attempt to manage volume status with dialysis
-Continue fluid restriction
-Continue Renvela
-Recheck sodium in AM
Non-Ischemic Myocardial Injury
-Continue to trend troponin
Essential Hypertension
-Continue amlodipine and carvedilol
Hyperlipidemia
-Continue atorvastatin
Hypothyroidism
-Continue levothyroxine
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
-Continue aspirin and Plavix
Hx Prostate Cancer s/p Radiation
DVT proph: SC Heparin
Code Status: Full Code
<Francia Roldan MD - Last Filed: 09/13/23 16:34>
-
Acute Volume Overload / Hypervolemic Hyponatremia
ESRD on HD [facility]
-Consult Nephrology
-Attempt to manage volume status with dialysis
-Continue fluid restriction
-Continue Renvela
-Recheck sodium in AM
Non-Ischemic Myocardial Injury
-Continue to trend troponin
Essential Hypertension
-Continue amlodipine and carvedilol
Hyperlipidemia
-Continue atorvastatin
Hypothyroidism
-Continue levothyroxine
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
-Continue aspirin and Plavix
Hx Prostate Cancer s/p Radiation
DVT proph: SC Heparin
Code Status: Full Code
Seen and examined and discussed with nurse practitioner in detail I am in agreement with plan and management mentioned by physician assistant manager pt
Seen and examined, prior to the hospital with family for confusion and generalized weakness, daughter at the bedside provide detailed information, answer question properly but lethargic, admit no fever or chill and eating and drinking well, still
urinating.
Look have evidence of fluid overload
Vital signs reviewed
Physical exam:
General: Lethargic but oriented x3, not in distress and holds appropriate conversation.
HEENT: No active discharge, ecchymosis or bruising, moist lips, tongue and mucous membrane.
Eyes: No discharge or red conjunctiva, no nystagmus, pupils are reactive and equal
Neck:Supple, no JVD no bruit no goiter.
Respiratory: Normal AP contour and diameter, normal chest wall movement, normal respiratory effort, no respiratory distress,
Lungs: Good air entry bilaterally, no wheezing or rhonchi, no rales or crackles
Heart: S1, S2 regular, normal rate, no added sound. Moderately gross lower extremities edema
Gastrointestinal: Positive bowel sounds, soft, nontender, no guarding or rigidity or organomegaly
Musculoskeletal: , no chest wall abnormality or tenderness. All joints and extremities have good range of motion, no muscle tenderness or any joint swelling or tenderness.
Extremities: No pitting edema, good peripheral pulses, good range of motion
Skin: Warm and dry, no ulceration, normal color.
Workup including labs, imaging, EKG and archive reviewed.
Assessment and plan:
Generalized weakness: Other than evidence of fluid overload and mild hyponatremia, and blood sugar been 77. No other findings appreciated.
Get a blood culture
Get a UA and culture if indicated
Plan for dialysis as she have evidence fluid overload
End-stage renal disease on hemodialysis, nephrology on board
Hemodialysis per nephrology
Low blood sugar, sugar 77 and recently was in the hospital A1c is 4.3, monitor.
Encourage oral intake
The rest of the assessment and management as above
All discussed with the patient and the family
Discussed with physician assistant manager pt
[2023-09-13 16:29] LABS: Osmolality Serum 270 mOsm/kg (275-300)
[2023-09-13 18:15] LABS: Glucose - Point of Care 60 mg/dl (70-99)
[2023-09-13] MEDS: LIPITOR 40 MG PO (18:25)
[2023-09-13] MEDS: ZYLOPRIM 100 MG PO (18:25)
[2023-09-13 18:31] LABS: Glucose - Point of Care 66 mg/dl (70-99)
[2023-09-13 18:52] LABS: Glucose - Point of Care 74 mg/dl (70-99)
[2023-09-13 19:27] LABS: Troponin I 0.046 ng/ml
[2023-09-13 20:22] LABS: Glucose - Point of Care 86 mg/dl (70-99)
[2023-09-13] MEDS: RENVELA 1600 MG PO (21:05)
[2023-09-13] MEDS: COREG 25 MG PO (21:06)
[2023-09-13 22:26] LABS: Glucose - Point of Care 69 mg/dl (70-99)
[2023-09-13] MEDS: DEXTROSE 50% SYRINGE 12.5 GRAMS IV (22:31)
[2023-09-13 22:55] LABS: Glucose - Point of Care 99 mg/dl (70-99)
[2023-09-14] VITALS (7 sets, daily range): BP systolic 132–163; BP diastolic 54–77; PULSE 65; O2SAT 99; BMI 25.7
[2023-09-14] MEDS: HEPARIN 5000 UNITS SC ×3 (00:42→16:36)
[2023-09-14 01:16] LABS: Hematocrit 37.7 % (39.0-52.0); Hemoglobin 12.2 g/dL (13.0-18.0); Mean Corp Hgb Conc. 32.4 g/dL (33.0-37.0); Mean Corpuscular Hgb 28.8 pg (27.0-31.0); Mean Corpuscular Volume 88.9 fL (80.0-94.0); Mean Platelet Volume 9.4 fL (7.4-10.4); Platelet Count 187 10^3/uL (130-400); Red Blood Cell Count 4.24 10^6/uL (4.70-6.10); Red Cell Dist. Width 15.1 % (11.5-14.5); White Blood Cell Count 11.6 10^3/uL (4.8-10.8)
[2023-09-14 01:36] LABS: Blood Urea Nitrogen 16 mg/dl (9-20); Calcium 9.9 mg/dl (8.4-10.2); Carbon Dioxide 25 mmol/L (22-30); Chloride 94 mmol/L (98-107); Estimated Creatinine Clearance 10 ml/min; Glucose 80 mg/dl (70-99); Magnesium 2.4 mg/dl (1.6-2.3); Potassium 4.1 mmol/L (3.5-5.1); Sodium 128 mmol/L (135-145); eGFR 9.99
[2023-09-14 01:43] LABS: Troponin I 0.046 ng/ml
[2023-09-14] MEDS: TYLENOL 650 MG PO (02:01)
[2023-09-14 03:17] LABS: Glucose - Point of Care 72 mg/dl (70-99)
[2023-09-14] MEDS: SYNTHROID 50 MCG PO (05:59)
--- NOTE | 2023-09-14 06:23 | PTCARENOTE ---
During dayshift, pt's blood sugar was below 70. Per protocol, blood sugar to be drawn q2h x2. Pt d/t be check at 2044. Pt c/o N/V, sugar checked at 2019. BS 86. RENÉE Burgess notified about N/V, no new orders. Pt given alcohol wipe to smell to help
w/ nausea. Pt offering no complaints.
BS @ 2224 was 69. Pt asymptomatic. RENÉE Burgess ordered, IV dextrose given at 2231 (see aug). Pt rechecked at 2253, BS 99.
Per protocol, BS checked at 0300, BS 72. Pt given apple sauce. Call rosales within reach. Continuing plan of care.
[2023-09-14 08:10] LABS: Glucose - Point of Care 69 mg/dl (70-99)
[2023-09-14] MEDS: RENVELA 1600 MG PO ×3 (08:12→20:57)
[2023-09-14] MEDS: PLAVIX 75 MG PO (08:12)
[2023-09-14] MEDS: COREG PO (08:21)
[2023-09-14] MEDS: NORVASC PO (08:21)
[2023-09-14 08:45] LABS: Glucose - Point of Care 82 mg/dl (70-99)
--- NOTE | 2023-09-14 09:22 | VNURNOTE ---
Patient is current with [facility] since 09/03 w/SN/PT/OT, will monitor progress and plan at discharge.
[2023-09-14 11:59] LABS: Glucose - Point of Care 102 mg/dl (70-99)
[2023-09-14] MEDS: LOW STRENGTH ASPIRIN PO (12:39)
[2023-09-14] MEDS: NEPHROCAP PO (12:39)
[2023-09-14] MEDS: VITAMIN D3 (cholecalciferol) PO (12:40)
--- NOTE | 2023-09-14 13:47 | W.PN.NEPH.HD ---
Assessment
-
Patient seen on dialysis
Systolic blood pressure 156 to current ultrafiltration rate
Blood cultures pending, no fevers
Progress Note - Hemodialysis
-
Date of Service: September 14, 2023
Duration: 30 minutes and 3 hours
Potassium Bath: 3
Calcium Bath: 2.5
Opti-Dialyzer: 160
Ultrafiltration: Other (3 kg as tolerated)
Dialysate Flow: 600
Heparin: None
EPO: None
--- NOTE | 2023-09-14 14:00 | W.PN.HOSP.TC ---
Today's Communication/Plan
-
Discussed with the patient and the nurse
Called the daughter from the room did not answer
Assessment / Plan
Assessment / Plan
Physical exam:
General: More alert and energetic, sitting on the chair, oriented x3, not in distress and holds appropriate conversation.
HEENT: No active discharge, ecchymosis or bruising, moist lips, tongue and mucous membrane.
Eyes: No discharge or red conjunctiva, no nystagmus, pupils are reactive and equal
Neck:Supple, no JVD no bruit no goiter.
Respiratory: Normal AP contour and diameter, normal chest wall movement, normal respiratory effort, no respiratory distress,
Lungs: Good air entry bilaterally, no wheezing or rhonchi, no rales or crackles
Heart: S1, S2 regular, normal rate, no added sound. Moderately gross lower extremities edema
Gastrointestinal: Positive bowel sounds, soft, nontender, no guarding or rigidity or organomegaly
Musculoskeletal: , no chest wall abnormality or tenderness. All joints and extremities have good range of motion, no muscle tenderness or any joint swelling or tenderness.
Extremities: Moderate lower extremity pitting edema, good peripheral pulses, good range of motion
Skin: Warm and dry, no ulceration, normal color.
Assessment and plan:
Acute Volume Overload / Hypervolemic Hyponatremia
ESRD on HD [facility]
-Consult Nephrology, plan for dialysis today
-Continue fluid restriction
-Continue Renvela
-Recheck
Generalized weakness, so far no reasoning and no evidence of infection while blood culture and urine analysis, ordered and pending.
Poor oral intake and hypoglycemia could be a possibility given his A1c 2 weeks ago was 4.3,
Close monitoring of blood sugar
Will get insulin level
If continued to be running low blood sugar and symptomatic then may consider endocrinology consult.
Encourage oral hydration intake
Edema:
Likely secondary to end-stage renal disease was hypoalbuminemia could be a possibility
Dialysis as above
Non-Ischemic Myocardial Injury
-Continue to trend troponin
Essential Hypertension
-Continue amlodipine and carvedilol
Hyperlipidemia
-Continue atorvastatin
Hypothyroidism
-Continue levothyroxine
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
-Continue aspirin and Plavix
Hx Prostate Cancer s/p Radiation
DVT proph: SC Heparin
Code Status: Full Code
<Francia Roldan MD - Last Filed: 09/13/23 16:34>
-
Acute Volume Overload / Hypervolemic Hyponatremia
ESRD on HD [facility]
-Consult Nephrology
-Attempt to manage volume status with dialysis
-Continue fluid restriction
-Continue Renvela
-Recheck sodium in AM
Non-Ischemic Myocardial Injury
-Continue to trend troponin
Essential Hypertension
-Continue amlodipine and carvedilol
Hyperlipidemia
-Continue atorvastatin
Hypothyroidism
-Continue levothyroxine
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
-Continue aspirin and Plavix
Hx Prostate Cancer s/p Radiation
DVT proph: SC Heparin
Code Status: Full Code
Called the daughter from the room and she did not answer
Discussed with the patient
Discussed with the nurse
Anticipated Discharge: 24 - 48 hours
Subjective/Interval History
-
Date of Service: September 14, 2023
Seen and examined, awake and alert, sitting on the chair, overall more energetic than yesterday, denies any fever or chill or cough or congestion, no shortness of breath, still have evidence of facial edema and lower extremity edema no dialysis yet.
Sugars been fluctuating. Received some supplement.
He is not diabetic.
No urinary or GI symptom
We called his daughter from the room and she did not answer.
Objective Data
-
Vital Signs:
Vital Signs
Temp Pulse Resp BP Pulse Ox
97.4 F 58 18 144/59 99
09/14/23 11:00 09/14/23 11:00 09/14/23 11:00 09/14/23 11:00 09/14/23 11:00
I&O
09/13/23 09/14/23 09/15/23
07:59 07:59 07:59
Intake Total 360 / 360
Balance 360 / 360
Review of Systems
-
All other systems: Reviewed and negative
[2023-09-14 16:41] LABS: Glucose - Point of Care 65 mg/dl (70-99)
[2023-09-14] MEDS: LIPITOR 40 MG PO (17:08)
[2023-09-14] MEDS: ZYLOPRIM 100 MG PO (17:10)
[2023-09-14 18:07] LABS: Glucose - Point of Care 117 mg/dl (70-99)
[2023-09-14] MEDS: COREG 25 MG PO (20:57)
[2023-09-14 21:52] LABS: Glucose - Point of Care 80 mg/dl (70-99)
[2023-09-15] VITALS (8 sets, daily range): BP systolic 95–164; BP diastolic 45–77; PULSE 62–72; O2SAT 98–99; BMI 25.1
[2023-09-15] MEDS: HEPARIN 5000 UNITS SC ×3 (01:13→16:06)
[2023-09-15 03:07] LABS: Glucose - Point of Care 73 mg/dl (70-99)
[2023-09-15 05:45] LABS: Glucose - Point of Care 80 mg/dl (70-99)
[2023-09-15 06:04] LABS: Urine Albumin 1+ (Neg - Trace); Urine Bilirubin Negative (Negative); Urine Character Slightly Cloudy (Clear); Urine Color Yellow; Urine Glucose Negative (Negative); Urine Ketone Negative (Negative); Urine Leukocyte Trace (Negative); Urine Nitrite Negative (Negative); Urine Occult Blood Negative (Negative); Urine Specific Gravity 1.015 (<1.030); Urine Urobilinogen Negative (Neg - 1+)
[2023-09-15] MEDS: SYNTHROID 50 MCG PO (06:07)
[2023-09-15 06:40] LABS: Hematocrit 37.1 % (39.0-52.0); Mean Corp Hgb Conc. 32.3 g/dL (33.0-37.0); Mean Corpuscular Hgb 28.6 pg (27.0-31.0); Mean Corpuscular Volume 88.5 fL (80.0-94.0); Mean Platelet Volume 9.8 fL (7.4-10.4); Platelet Count 185 10^3/uL (130-400); Red Blood Cell Count 4.19 10^6/uL (4.70-6.10); White Blood Cell Count 11.7 10^3/uL (4.8-10.8)
[2023-09-15 06:47] LABS: Urine Sodium 87 mmol/L (30-90)
[2023-09-15 06:48] LABS: Urine Amorphous Seen; Urine Bacteria Many (Negative)
[2023-09-15 06:53] LABS: Urine Squamous Cell >30 /LPF (Few)
[2023-09-15 06:54] LABS: Urine White Cell 30-40 /HPF (0-5)
[2023-09-15 07:12] LABS: Blood Urea Nitrogen 12 mg/dl (9-20); Calcium 9.9 mg/dl (8.4-10.2); Carbon Dioxide 24 mmol/L (22-30); Chloride 91 mmol/L (98-107); Estimated Creatinine Clearance 14 ml/min; Glucose 82 mg/dl (70-99); Potassium 4.1 mmol/L (3.5-5.1); Sodium 128 mmol/L (135-145); eGFR 14.53
[2023-09-15 07:53] LABS: Glucose - Point of Care 88 mg/dl (70-99)
[2023-09-15 08:22] LABS: Osmolality Urine 201 mOsm/kg (300-900)
[2023-09-15] MEDS: NORVASC 5 MG PO (09:35)
[2023-09-15] MEDS: COREG 25 MG PO (09:36)
[2023-09-15] MEDS: RENVELA 1600 MG PO ×2 (09:37→17:28)
[2023-09-15] MEDS: PLAVIX 75 MG PO (09:37)
[2023-09-15] MEDS: NEPHROCAP 1 CAPSULE PO (11:26)
[2023-09-15] MEDS: VITAMIN D3 (cholecalciferol) 25 MCG PO (11:26)
[2023-09-15] MEDS: LOW STRENGTH ASPIRIN 81 MG PO (11:27)
[2023-09-15] MEDS: TYLENOL 650 MG PO (11:38)
[2023-09-15 12:01] LABS: Glucose - Point of Care 91 mg/dl (70-99)
--- NOTE | 2023-09-15 12:18 | W.PN.HOSP.TC ---
Today's Communication/Plan
-
treat as possible UTI - start Rocephin
HD tomorrow with 1 IV Iron today
Assessment / Plan
Assessment / Plan
Assessment and plan:
Acute Volume Overload/Hypervolemic Hyponatremia
ESRD on HD //
- Nephrology following; HD tomorrow
- continue OFR, continue Renvela
Generalized weakness
- no clear etiology; but abnormal UA
- start Rocephin, day 1, pending culture
- noted low A1c 4.3%
- needs to consistently eat/drink more
Non-Ischemic Myocardial Injury
- trop flat 0.046
Essential Hypertension
- continue amlodipine and carvedilol
Hyperlipidemia
- continue atorvastatin
Hypothyroidism
- continue levothyroxine
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
- continue aspirin and Plavix
Hx Prostate Cancer s/p Radiation
DVT proph: SC Heparin
Code Status: Full Code
Anticipated Discharge: Within 24 hours
Subjective/Interval History
-
Date of Service: September 15, 2023
Sugars more stable
some nausea at times, post-meds
Objective Data
-
Labs:
Laboratory Results
09/15/23
06:07
WBC 11.7 H
Hgb 12.0 L
Hct 37.1 L
Plt Count 185
Sodium 128 L
Potassium 4.1
Chloride 91 L
Carbon Dioxide 24
BUN 12
Creatinine 4.1 H*
Glucose 82
Calcium 9.9
Vital Signs:
Vital Signs
Temp Pulse Resp BP Pulse Ox
98.2 F 65 17 140/64 99
09/15/23 11:04 09/15/23 11:04 09/15/23 11:04 09/15/23 11:04 09/15/23 11:04
I&O
09/14/23 09/15/23 09/16/23
06:59 06:59 06:59
Intake Total 360 / 360 720 / 720
Output Total
Balance 360 / 360 690 / 690
Physical Exam
-
General: No Apparent Distress
HEENT: Normocephalic and Atraumatic
Respiratory: Negative Wheezes, Rales or Rhonchi
Cardiac: Regular Rhythm and S1/S2
GI: Soft
Genito-urinary: No Costovertebral Tender
Musculoskeletal: No Edema
Neuro: AO x 3
Hematologic / Lymphatic: No Lymphadenopathy
Psych: Calm
Data Reviewed
-
Total Time Spent with Patient (in minutes): 42
Labs: Labs Reviewed by me
[2023-09-15] MEDS: ROCEPHIN 1000 MG IV (13:53)
[2023-09-15] MEDS: FERRLECIT 110 MG IV (13:53)
[2023-09-15] MEDS: STERILE WATER FOR INJECTION 10 ML IV (13:54)
--- NOTE | 2023-09-15 14:12 | CM ---
Addendum entered by Alise Pineda 09/15/23 14:23:
IMM explained and signed
Original Note:
Met with patient and his daughter, , at the bedside; initial assessment and CM Consult completed
[place] [facility] [place] with his daughter and sons in a one level home; 3 steps to enter; bathroom has tub with shower
PLOF: patient reported that he is independent with ambulation, stairs and ADLs; daughter reported that she assists with medications
Transport: daughter will provide ride home
SNF/Rehab/Home Health utilization history: home health services utilized; known to [facility]
Plan: discharge to home; resume home health services with [facility]; [facility] referral sent to liaison via [employer] [facility]
--- NOTE | 2023-09-15 15:35 | W.PN.NEPH.PH ---
Today's Communication / Plan
-
HD tomorrow
Assessment/Plan
-
IMP:
Generalized weakness with ambulatory dysfunction edema
Peripheral edema
Hyponatremia
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
Left arm fistula 2019
Chronic anemia
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
Hx loop recorder 2022
HTN�benign
Hypothyroidism
Prostate cancer status post radiation in 2018
History of nephrolithiasis
Aortic stenosis
Plan:
HD tomorrow, orders provided
HD planned for [facility] while inpatient , will attempt to reduce dry weight as hemodynamically tolerated
VONDA as needed on dialysis for anemia
increase activity
-
-
Date of Service: September 15, 2023
CC / HPI / ROS
-
Chief Complaint:
ESRD
History of Present Illness:
tolerated HD yesterday
BP stable
on IV iron for KASSANDRA
now on Abx for presumed UTI
Review of Systems:
no CP/SOB
Labs
-
Labs:
WBC 11.7 10^3/uL (4.8-10.8) H 09/15/23 06:07
RBC 4.19 10^6/uL (4.70-6.10) L 09/15/23 06:07
Hgb 12.0 g/dL (13.0-18.0) L 09/15/23 06:07
Hct 37.1 % (39.0-52.0) L 09/15/23 06:07
Plt Count 185 10^3/uL (130-400) 09/15/23 06:07
Sodium 128 mmol/L (135-145) L 09/15/23 06:07
Potassium 4.1 mmol/L (3.5-5.1) 09/15/23 06:07
Chloride 91 mmol/L (98-107) L 09/15/23 06:07
Carbon Dioxide 24 mmol/L (22-30) 09/15/23 06:07
BUN 12 mg/dl (9-20) 09/15/23 06:07
Creatinine 4.1 mg/dL (0.7-1.3) H* 09/15/23 06:07
eGFR 14.53 09/15/23 06:07
Glucose 82 mg/dl (70-99) 09/15/23 06:07
Calcium 9.9 mg/dl (8.4-10.2) 09/15/23 06:07
Jdk-G-Vqxjgetlurx Pept > 12551 pg/ml 09/13/23 12:48
Albumin 2.8 g/dl (3.5-5.0) L 09/13/23 12:48
Physical Exam
-
Vital Signs:
Vital Signs
Temp Pulse Resp BP Pulse Ox
98 F 58 17 122/54 98
09/15/23 15:22 09/15/23 15:22 09/15/23 15:22 09/15/23 15:22 09/15/23 15:22
Cardiovascular:: Regular rate and rhythm
Respiratory:: Bilateral: Coarse
Lung Excursion:: Normal
Abdomen:: Nontender and Soft
Bowel Sounds:: Normal
Extremity Edema:: +2: Bilateral:
--- NOTE | 2023-09-15 16:08 | VNURNOTE ---
[facility] resumption of care completed in [facility] after review of chart and discussion with patient and daughter . [facility]
--- NOTE | 2023-09-15 16:34 | PTCARENOTE ---
Assumed care of pt from previous nurse. pt denies pain. Pt lue restricted for dialysis fistula, + bruit and thrill. Pt is on tele running nsr, first degree heart block. Pt call rosales is within reach, pt does not ring vish., bed alarm in place. will
cont to monitor.
--- NOTE | 2023-09-15 16:39 | PN.CDI ---
CDI
- -
CDI:
Physician Documentation Request
Admit Date: 09/13/23 16:22
Dear Doctor Rubia,
Please review the following and provide your response in the progress notes.
Clinical Indicators:
Pt admitted with Hyponatremia/ESRD on HD,Fluid Overload and now presumed UTI on abx.
Documented per ED, '...concerns of generalized weakness fatigue confusion over the past few days. ...on arrival vital signs here are sugar level in the 70s labs were obtained showing a low sodium level 126 which could be contributing the patient's
altered mental status ...'
Documented per H&P,' ...confusion and generalized weakness, daughter at the bedside provide detailed information, answer question properly but lethargic...'
Based on the above, could you clarify in the Progress Notes and Discharge Summary which, if any of the following, is the most likely etiology of the confusion/altered mental status.
Metabolic Encephalopathy
Acute Confusion only
Other ( please Specify )
Use of terms such as suspected, likely, concern for, or probable (associated with a specific diagnosis that is being evaluated, monitored, or treated as if it exists) are acceptable and can be coded in the inpatient setting, when documented at the
time of discharge.
Thank you,
Emiliana Cano RN
CDI Specialist
[place] [facility]
Please use your independent medical judgment in providing your response.
[2023-09-15 16:47] LABS: Glucose - Point of Care 90 mg/dl (70-99)
[2023-09-15] MEDS: LIPITOR 40 MG PO (17:28)
[2023-09-15] MEDS: ZYLOPRIM 100 MG PO (18:23)
[2023-09-15 19:36] LABS: Glucose - Point of Care 93 mg/dl (70-99)
[2023-09-15 19:48] LABS: Hematocrit 29.7 % (39.0-52.0); Hemoglobin 9.6 g/dL (13.0-18.0)
[2023-09-15] MEDS: COREG PO (20:55)
[2023-09-15] MEDS: PROTONIX IV 40 MG IV (20:58)
[2023-09-15] MEDS: NSS (PRESERVATIVE FREE) 10 ML IV (20:59)
[2023-09-15] MEDS: RENVELA PO (21:40)
[2023-09-15 21:41] LABS: Glucose - Point of Care 80 mg/dl (70-99)
[2023-09-15 23:55] LABS: Hematocrit 29.5 % (39.0-52.0); Hemoglobin 9.7 g/dL (13.0-18.0)
[2023-09-16] VITALS (26 sets, daily range): BP systolic 81–132; BP diastolic 26–81; BMI 25.2
[2023-09-16 01:02] LABS: Glucose - Point of Care 76 mg/dl (70-99)
--- NOTE | 2023-09-16 03:00 | PTCARENOTE ---
Late entry for 09/16/2023 0300-
In the beginning of the shift, PCT reported bp 95/45 during shift change. Patient feeling dizzy and sitting in chair at the time. Helped patient back to bed and noted blood on Covidien. Patient stated had a large BM in the bathroom prior and unable
to memorize the color or amount. while cleaning the patient, noted incontinent of maroon BM/ + heme test . Update SECOND SHIFT SUPERVISOR. rechecked BP- 114/54 at 20.55. Held midodrine as per provider order as BP got better. Had another large maroon /brown BM.
Updated SECOND SHIFT SUPERVISOR. Patient confused to place and situation/ restless throughout the night. Bed alarm for safety. stable blood sugar. Will continue to monitor.
[2023-09-16 03:58] LABS: Glucose - Point of Care 86 mg/dl (70-99)
[2023-09-16] MEDS: SYNTHROID 50 MCG PO (04:43)
--- NOTE | 2023-09-16 05:45 | W.PN.UPDATE ---
Update Note
Progress Note Update
BP 90/50's dizzy and weakness; here for UTI, is a dialysis patient, Nsg noted blood on gown, did heme test which is positive. H/H stat done drop to 9.6 from 12.0, does have hx of chronic Anemia and did receive Iron today. he is due for dialysis
tomorrow.Midodrine ordered, but held as BP is in 114/50's. hold SQ heparin, Protonix IV BID ordered, GI consult in place and made aware. H/H [id number] .
Nsg made OIL WELL DRILLER aware of 1 large maroon color BM.
--- NOTE | 2023-09-16 06:35 | CON.GI ---
Addendum entered and electronically signed by Dao Ramsey MD 09/16/23 12:04:
I saw and examined the patient.
The RESIDENT CARE SUPERVISOR or PA's note was reviewed and I agree with the note.
Comment:
Pt is a 73 y/o man with a hx of ESRD on HD, prostate cancer admitted for volume overload. Overnight with rectal bleeding and drop in hgb. Given plavix but unsure if on it as outpatient. Also new murmur since last admission. scheduled for egd in
may
abd: soft
impression:
GI bleeding
anemia
gerd
plan:
hold plavix
monitor hgb, transfuse as needd.
cardiology
IV PPI
will assess need/timing for scope based on clinical course
Addendum entered and electronically signed by RENÉE Napoles 09/16/23 10:04:
reviewed chart pt did have dose of Plavix last 09/14
Original Note:
Consultation
-
Date/Time Consultation Requested: 09/15/23 2030
Date/Time Consultation Performed: 09/16/23 0700
Requesting Provider: RENÉE Boudreaux
Performing Provider: RENÉE Schaffer, Dao Ramsey MD
Reason for Consultation: GI bleed
Medical History
Chief Complaint / HPI
Chief Complaint: bloody stool
History of Present Illness:
Pt is a 73yo with hx ESRD on HD, prostate CA with prior radiation 2013, CVA(now off Plavix since last year) , HTN, hyperlipidemia, hypothyroidism, DM no med, valvular disease with admission with weakness. Pt was noted with elevated BP and LE
swelling with concern for volume overload, hyponatremia, increased troponin with non ischemic injury, possible UTI, and now noted overnight with rectal bleeding. hbg was 11-12 range now down to 9.7. In reviewing with daughter patient has had
several recent admission including admission 08/10/23 at [facility] then August at [facility] with extreme weakness. He was noted with new murmur last admission with concern for mitral and aortic stenosis. He now returns with similar symptoms and
continued weakness. Asked to see as noted with blood in stool overnight.
Pt sleepy in exam but with assist of family noted with chronic GERD has been on Pepcid occasional prior cheli [place] and gas X use. Symptoms recently worse. Per family takes Tylenol no NSAID use. . Pt has had recently vomiting but no noted
blood or black in emesis. He also had new + abdominal with recent start in mid abdomen. No dysphagia, diarrhea or constipation that family was aware of and pt denies. No EGD in past but due to to complete in October with [facility] due to anemia.
Colonoscopy [address] Nunn.
Past Medical History
Past Medical History: Cancer (prostate CA with prior radiation), CVA, HTN, Hypercholesterolemia, Hypothyroidism, NIDDM (without meds), Renal Failure (ESRD on HD) and Valvular Disease (mod mitral senosis, moderate )
Past Surgical History: Other (hernia repair, AV fistula, loop recorder )
Social History
Tobacco: Non-Smoker
Alcohol: None
Drug: None
Living: With Family
Employment: Retired
Family History
Family History: Other (no family hx colon CA or polyps, No hx GI cancers)
Allergies / Home Medications
Allergy/AdvReac Type Severity Reaction Status Date / Time
No Known Allergies Allergy Verified 09/13/23 11:45
�Medication �Instructions �Recorded
allopurinol 100 mg tablet 100 mg PO QPM Gout 10/11/22
amlodipine 5 mg tablet 5 mg PO DAILY Blood Pressure 10/11/22
aspirin 81 mg chewable tablet 81 mg PO NOON Blood Clot 10/11/22
Prevention/Tx
atorvastatin 40 mg tablet 40 mg PO QPM High Cholesterol 10/11/22
carvedilol 25 mg tablet 25 mg PO BID Blood Pressure 10/11/22
cholecalciferol (vitamin D3) 25 25 mcg PO NOON Supplement 10/11/22
mcg (1,000 unit) chewable tablet
(Vitamin D3)
levothyroxine 50 mcg capsule 50 mcg PO DAILY AT 0700 Thyroid 10/11/22
sevelamer carbonate 800 mg tablet 1,600 mg PO TID Kidney Disease 08/28/23
(Renvela)
vitamin B comp no.3-folic acid 1 1 tab PO NOON Supplement 08/28/23
mg-vit C 60 mg-biotin 300 mcg
tablet ([facility])
clopidogrel 75 mg tablet (Plavix) 75 mg PO DAILY 09/13/23
Review of Systems
-
History Source: Patient and Family
Constitutional: Reports No Symptoms
EENT: Reports No Symptoms
Respiratory: Reports No Symptoms
Cardiac: Reports No Symptoms
Abdomen/GI: Reports Abdominal Pain, Nausea, Vomiting and Black Stools
: Reports Other (small amount)
Musculoskeletal: Reports No Symptoms
Skin: Reports No Symptoms
Neurological: Reports Dizzy and Weakness
Hematologic/Lymphatic: Reports Bleeding
Vital Signs
Temp Pulse Resp BP Pulse Ox
98.7 F 76 14 132/65 100
09/16/23 03:41 09/16/23 03:41 09/16/23 03:41 09/16/23 03:41 09/16/23 03:41
Physical Exam
Exam
General: Other (elderly male, sleeping but arouses to questions )
HEENT: Normocephalic and Anicteric
Respiratory: Clear
Cardiac: Regular Rhythm, Murmur and Peripheral Edema
GI: Soft, Non Tender and Non Distended
Rectal: Black, Hem Positive and Other (no masses or lesions)
Musculoskeletal: No Clubbing and No Cyanosis
Skin: Warm and Dry
Neuro: Other (sleepy but arousable, forgetful)
Psych: Calm
Results
WBC 11.7 10^3/uL (4.8-10.8) H 09/15/23 06:07
Hgb 9.7 g/dL (13.0-18.0) L 09/15/23 23:49
Hct 29.5 % (39.0-52.0) L 09/15/23 23:49
MCV 88.5 fL (80.0-94.0) 09/15/23 06:07
Plt Count 185 10^3/uL (130-400) 09/15/23 06:07
Absolute Neuts (auto) 8.3 10^3/uL (1.4-6.5) H 09/13/23 12:48
Sodium 128 mmol/L (135-145) L 09/15/23 06:07
Potassium 4.1 mmol/L (3.5-5.1) 09/15/23 06:07
Chloride 91 mmol/L (98-107) L 09/15/23 06:07
Carbon Dioxide 24 mmol/L (22-30) 09/15/23 06:07
BUN 12 mg/dl (9-20) 09/15/23 06:07
Creatinine 4.1 mg/dL (0.7-1.3) H* 09/15/23 06:07
Calcium 9.9 mg/dl (8.4-10.2) 09/15/23 06:07
Total Bilirubin 1.1 mg/dl (0.2-1.3) 09/13/23 12:48
AST 74 U/L (17-59) H 09/13/23 12:48
ALT 29 U/L (0-50) 09/13/23 12:48
Alkaline Phosphatase 141 U/L (38-126) H 09/13/23 12:48
Lipase 177 U/L (23-300) 09/13/23 12:48
Diagnostic Image Results:
2022 CT urogram
1. SEVERE CHRONIC BILATERAL RENAL DISEASE with severe bilateral renal atrophy.
2. 3.5 cm irregular shaped soft tissue mass in the left ureteropelvic junction which appears to be obstructing the left renal collecting system causing mild dilatation of the left renal pelvis and left intrarenal calyces. Similar-appearing 3.2 cm
soft tissue mass in the right ureteropelvic junction which does not appear to be obstructing. Diagnostic possibilities are (1) urothelial carcinoma or (2) scarring.
3. Mild retroperitoneal lymphadenopathy.
4. Cholelithiasis.
5. Mild intrahepatic biliary dilatation.
6. Mild diverticular disease in the sigmoid colon.
7. Mildly enlarged prostate gland containing treated prostate cancer.
8. Severe bilateral facet joint arthrosis at L5/S1.
9. Moderate cardiomegaly.
10. Severe calcific atherosclerotic plaque in the coronary arteries.
Prior GI Procedures:
EGD: none due October 2023
Colonoscopy: 2019 [place] polyps
Assessment / Plan
-
Pt is a 73yo with hx ESRD on HD, prostate CA with prior radiation 2013, CVA(now off Plavix since last year) , HTN, hyperlipidemia, hypothyroidism, DM no med, valvular disease with admission with weakness. Pt was noted with elevated BP and LE
swelling with concern for volume overload, hyponatremia, increased troponin with non ischemic injury, possible UTI and now noted overnight with rectal bleeding. hbg was 11-12 range now down to 9.7. In reviewing with daughter patient has had
several recent admission including admission 08/10/23 at [facility] then August at [facility] with extreme weakness. He was noted with new murmur last admission with concern for mitral and aortic stenosis. He now returns with similar symptoms and
continued weakness. Pt with new abdominal pain with occasional non bloody emesis. No EGD in past but due to to complete in October with [facility] due to anemia. Colonoscopy [address] Nunn. No NSAID use
-rectal bleeding black heme + stool on exam
-weakness on admission possible UTI
-acute on chronic anemia
-prostate CA with prior radiation
-hx CVA on ASA
-increased troponin
-murmur with mitral and aortic stenosis
other medical problems:
-ESRD on HD
-HTN
-hyperlipidemia
-CVA
-hypothyroidism
-DM no meds
PLAN:
etiology of anemia with rectal bleeding related to Upper GI bleed with black stools some new abdominal pain-- AVM's, PUD vs other vs radiation proctitis but stools with no red blood note at present time other
trend hbg transfuse as needed
t/c EGD l review with Dr. Ramsey for timing pt was due in October for OP testing but noted further drop in hbg overnight
daughter would be agreeable to proceed
also reviewed with daughter patient has been off Plavix reviewed with hospitalist will hold for now
pt currently with diet and just on HD this am , also noted elevated troponin/infectious work up on admission await medical input
add iron studies,B12, folate
cont protonix IV BID
on abx pending infectious work up with weakness and possible UTI
-
-
Thank you for consultation and allowing me to participate in the patient's care. Please call the animation camera operator GI physician during the after hours with any questions or concerns.
--- NOTE | 2023-09-16 08:00 | PTCARENOTE ---
Pt assessed at 8 am . PT was aaox3 mumbling words and not making sense, PT knows person place time and president He had a heavy accent but stated he only speaks danish. He made multiple attempts to get OOB by self. he was not able to clearly
express where he was going or what he was doing. I assisted him back to bed and then his HD nurse came to start HD.
--- NOTE | 2023-09-16 08:00 | W.PN.HOSP.TC ---
Today's Communication/Plan
-
2 units PRBC
GI consulted
hold Plavix
PPI BID
CT A/P
TME workup
Assessment / Plan
Assessment / Plan
Assessment and plan:
Acute Volume Overload/Hypervolemic Hyponatremia
ESRD on HD //
- Nephrology following for HD needs
- continue OFR, continue Renvela
TME
- transient
- check metabolic workup
- no evidence of infection
- CT head ordered
- consider MRI
Generalized weakness
- noted low A1c 4.3%; with periodic hypoglycemia
- given nausea/abdominal pain, dark stools, concern for GI bleed
- GI consulted
- check CT A/P with PO/IV contrast (or IV only if cannot tolerate PO)
- hold Plavix
- continue PPI IV BID
Acute blood loss anemia, exacerbated by ASA/Plavix
- 2 units ordered today
Non-Ischemic Myocardial Injury
- trop flat 0.046
- Echo: normal LV size/function. EF 60%, stage 2 DD, severely dilated RA, moderate MS, moderate
Essential Hypertension
- continue amlodipine and carvedilol
Hyperlipidemia
- continue atorvastatin
Hypothyroidism
- continue levothyroxine
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
- continue aspirin and Plavix
Hx Prostate Cancer s/p Radiation
DVT proph: SCDs
Code Status: Full Code
Anticipated Discharge: > 48 hours
Subjective/Interval History
-
Date of Service: September 16, 2023
agitated on HD, trying to get up but remains mentally intact
states he is lightheaded, points to his RLQ for pain, passing dark stools with incontinence, also nausea
denies SOB or CP
Objective Data
-
Labs:
Laboratory Results
09/15/23 09/16/23 09/16/23
23:49 06:00 12:00
WBC Pending
Hgb 9.7 L Pending Pending
Hct 29.5 L Pending Pending
Plt Count Pending
Sodium Pending
Potassium Pending
Chloride Pending
Carbon Dioxide Pending
BUN Pending
Creatinine Pending
Glucose Pending
Calcium Pending
09/16/23 09/16/23
18:00 23:59
WBC
Hgb Pending Pending
Hct Pending Pending
Plt Count
Sodium
Potassium
Chloride
Carbon Dioxide
BUN
Creatinine
Glucose
Calcium
Vital Signs:
Vital Signs
Temp Pulse Resp BP Pulse Ox
98.9 F 79 16 123/45 99
09/16/23 07:42 09/16/23 07:42 09/16/23 07:42 09/16/23 07:42 09/16/23 07:42
I&O
09/15/23 09/16/23 09/17/23
06:59 06:59 06:59
Intake Total 720 / 720 1200 / 1200
Output Total
Balance 690 / 690 1200 / 1200
Physical Exam
-
General: Appears Chronically Ill
HEENT: Normocephalic and Atraumatic
Respiratory: Negative Wheezes
Cardiac: Regular Rhythm, S1/S2 and Murmur
GI: Soft and Tender (RLQ)
Genito-urinary: No Costovertebral Tender
Musculoskeletal: No Edema
Neuro: AO x 3
Hematologic / Lymphatic: No Lymphadenopathy
Psych: Calm
Data Reviewed
-
Total Time Spent with Patient (in minutes): 51
Labs: Labs Reviewed by me
[2023-09-16 08:07] LABS: Glucose - Point of Care 71 mg/dl (70-99)
[2023-09-16] MEDS: FLEXBUMIN 25% FOR HEMODIALYSIS 12.5 GRAMS IV ×2 (08:20→09:54)
[2023-09-16] MEDS: MANNITOL 12.5 GRAMS IV ×2 (08:30→09:54)
[2023-09-16 08:44] LABS: % Basophils 0.2 % (0-2); % Eosinophils 0.2 % (0-6); % Immature Granulocytes 0.5 % (0-0.5); % Lymphocytes 12.7 % (20.5-51.1); % Monocytes 9.7 % (1.7-9.3); % Neutrophils 76.7 % (42.2-75.2); Absolute Immature Granulocytes 0.1 10^3/uL (0-0.05); Absolute Lymphocytes 1.5 10^3/uL (1.2-3.4); Absolute Monocytes 1.2 10^3/uL (0.1-0.6); Absolute Neutrophils 9.3 10^3/uL (1.4-6.5); Hematocrit 26.3 % (39.0-52.0); Hemoglobin 8.4 g/dL (13.0-18.0); Mean Corp Hgb Conc. 31.9 g/dL (33.0-37.0); Mean Corpuscular Hgb 28.7 pg (27.0-31.0); Mean Corpuscular Volume 89.8 fL (80.0-94.0); Mean Platelet Volume 9.8 fL (7.4-10.4); Nucleated Red Blood Cells % 0 % (-); Platelet Count 163 10^3/uL (130-400); Red Blood Cell Count 2.93 10^6/uL (4.70-6.10); Red Cell Dist. Width 15.1 % (11.5-14.5); White Blood Cell Count 12.2 10^3/uL (4.8-10.8)
[2023-09-16 09:05] LABS: Blood Urea Nitrogen 45 mg/dl (9-20); Calcium 10.2 mg/dl (8.4-10.2); Carbon Dioxide 23 mmol/L (22-30); Chloride 92 mmol/L (98-107); Estimated Creatinine Clearance 10 ml/min; Glucose 64 mg/dl (70-99); Iron 113 ug/dl (49-181); Potassium 4.7 mmol/L (3.5-5.1); Sodium 126 mmol/L (135-145); eGFR 9.99
[2023-09-16 09:05] LABS: Glucose - Point of Care 76 mg/dl (70-99)
[2023-09-16] MEDS: COREG PO ×2 (09:05→19:50)
[2023-09-16] MEDS: PLAVIX PO (09:05)
[2023-09-16] MEDS: NORVASC PO (09:05)
[2023-09-16 09:14] LABS: Percent Saturation 89 % (20-50); Total Iron Binding Capacity 126 ug/dl (261-462)
[2023-09-16 10:11] LABS: Folate 14.2 ng/ml (2.76-20); Vitamin B12 882 pg/ml (239-931)
--- NOTE | 2023-09-16 10:29 | PTCARENOTE ---
Stat lab of HG 6.9 called up to me. notified: orders to type and cross match ordered. At this point pt had two episodes of large maroon slash black stool with incontence. Yesterday PCT told me he was continent yesterday, able to walk by self
and communicate better and this was a change from yesterday. I did alert the MD and a CT scan head, abdomen and blood ordered. PT still aaox3 , restless and not making sense. I did notice that the HD nurse had Restraints on. She confirmed that pt
had been getting oob and restless during her session. I notified MD and restraints were ordered and continued.
[2023-09-16 10:30] LABS: Hemoglobin 6.9 g/dL (13.0-18.0)
[2023-09-16 10:31] LABS: Hematocrit 20.9 % (39.0-52.0)
[2023-09-16] MEDS: ProAmatine 10 MG PO (10:52)
--- NOTE | 2023-09-16 10:59 | W.PN.NEPH.HD ---
Assessment
-
Seen on HD. BRBPR. VSS, BP low on HD. stop amlodipine. VONDA on HD. for GI eval
access ok
Progress Note - Hemodialysis
-
Date of Service: September 16, 2023
Duration: 30 minutes and 3 hours
Potassium Bath: 2
Calcium Bath: 2.5
Opti-Dialyzer: 160
Ultrafiltration: Other (2kg)
Blood Flow: 400
Dialysate Flow: 600
Heparin: no
EPO: 74500 units
[2023-09-16 11:55] LABS: Glucose - Point of Care 69 mg/dl (70-99)
[2023-09-16] MEDS: PROTONIX IV 40 MG IV (11:58)
[2023-09-16] MEDS: NSS (PRESERVATIVE FREE) 10 ML IV (11:58)
[2023-09-16] MEDS: RENVELA PO ×3 (11:59→21:48)
[2023-09-16] MEDS: VITAMIN D3 (cholecalciferol) PO (11:59)
[2023-09-16] MEDS: NEPHROCAP 1 CAPSULE PO (11:59)
--- NOTE | 2023-09-16 12:04 | W.PN.UPDATE ---
Update Note
Progress Note Update
for billing purposes only
[2023-09-16 12:15] LABS: Glucose - Point of Care 46 mg/dl (70-99)
[2023-09-16 12:32] LABS: Glucose - Point of Care 82 mg/dl (70-99)
[2023-09-16] MEDS: OMNIPAQUE 50 ML PO (13:24)
[2023-09-16 13:42] LABS: Glucose - Point of Care 77 mg/dl (70-99)
[2023-09-16 14:23] LABS: Ammonia < 9 umol/L (9-30)
[2023-09-16 14:48] LABS: Glucose - Point of Care 73 mg/dl (70-99)
[2023-09-16] MEDS: TYLENOL 650 MG PO (15:01)
[2023-09-16 16:13] LABS: Glucose - Point of Care 59 mg/dl (70-99)
[2023-09-16 16:25] LABS: Glucose - Point of Care 66 mg/dl (70-99)
--- NOTE | 2023-09-16 16:27 | W.PN.UPDATE ---
Update Note
Progress Note Update
Responded to code. Arrived and pt pulseless and unresponsive. Tele with VF. CPR underway when I arrived. Defibrillation pads placed and 200 J shock restored a slow narrow rhythm without pulse. Epi, CPR, oral intubation by anesthesia. Second VF
occurred and 200 J administered and an idioventricular rhythm see and CPR resumed. Prior to 2nd epi a femoral pulse developed and a narrow QRS rhythm seen when CPR stopped.
Tele reviewed.
- VF onset 1606 hrs. First shock at 1615 hrs.
- Second VF 1617 hrs and second shock 1618 hrs.
- Femoral pulse by 1621 (pulse time by different clock then tele review).
33 min critical care time spent by me
--- NOTE | 2023-09-16 16:31 | W.PN.ANESINT ---
Anesthesia Intubation Note
- Intubation Note
Intubation Note:
Diagnosis: cardio-pulmonary arrest
Blade: mac 4
Tube Size: 8.0
Depth: 22cm
Side Taped: right
Drugs Used: none
Grade View: 1
EtCO2 Present: yes
Atraumatic: yes
Attempts: 1
Insertion Start and Stop Time: 7467-7844
SaO2 Pre: unable
SaO2 Post: 92
Glidescope Used: yes
Other Airway Adjustments:
Pre-Oxygenated: yes
Portable Chest X-Ray: p
RSI:
Suctioned:
Bilateral Breath Sounds Confirmed: yes
Vent Settings:
Settings per __x_Attending Physician
--- NOTE | 2023-09-16 16:50 | W.PN.UPDATE ---
Addendum entered and electronically signed by Albin Camarillo MD 09/16/23 17:14:
Add cardiology consult. Check echocardiogram.
Original Note:
Update Note
Progress Note Update
Appreciate cardiology input during the code.
73-year-old male with a past medical history of end-stage renal failure on dialysis, hypertension, hyperlipidemia, and prior stroke who was admitted for generalized weakness and fatigue. Found to have GI bleed, with melena. Hemoglobin dropped 3 g
overnight, 6.9. He started receiving blood at 3:15 PM.
At approximately 4:06 PM he went into V-fib arrest, for shock at 4:15 PM. Patient received CPR and 1 round of epinephrine.
At 4:17 PM, second A-fib, second shock at 4:18 PM
ROSC obtained with femoral pulse on 4:21 PM.
Patient was intubated.
Total downtime 15 minutes.
Patient seen and examined in rounds to the ICU.
He is intubated, and responsive, but not following commands.
Discussed with machinery erector, V-fib arrest not related to blood transfusion.
PICC line ordered, machinery erector ordering head CT, CT chest/abdomen/pelvis.
Hemoglobin 6.9, he is continuing to have melena.
Continue blood transfusion, repeat hemoglobin pending.
Discussed with GI, who recommends changing Protonix 40 mg IV twice daily to Protonix drip.
Daughter updated on phone 09/16/2023.
Critical care time 31 minutes.
[2023-09-16 16:53] LABS: Glucose - Point of Care 97 mg/dl (70-99)
--- NOTE | 2023-09-16 17:00 | CON.INTV ---
Consultation
Consultation Request
Date/Time Consultation Requested: 09/16/2023 - 1647
Date/Time Consultation Performed: 09/16/2023 - 1651
Requesting Provider: Dr. Camarillo
Performing Provider: Dr. Lou
Reason for Consultation: Cardiac Arrest
Medical History
-
Chief Complaint: Weakness
History of Present Illness:
73-year-old male with a past medical history of ESRD on HD, hypertension, hyperlipidemia, valvular heart disease and history of CVA with residual left-sided facial droop presented with generalized weakness and fatigue. Apparently visiting nurse saw
the patient in the morning of arrival and told the patient to come to the ER for further evaluation due to his weakness, fatigue, lower extremity swelling, high blood pressure, confusion and low blood sugar. BS was 77 in triage. Initial vitals
showed BP 149/66, he was afebrile to 98.1 �F, heart rate 65 bpm, breathing at 16 breaths/min, and SpO2 94% on room air. Initial labs showed Hb 11.4, WBC normal at 10.6, hyponatremic to 126, low serum osmolarity of 270, elevated troponin at 0.045,
and TSH elevated at 7.76. Blood cultures were collected. Patient was admitted to the hospitalist service. He developed rectal bleeding overnight from 09/14. Hemoglobin also dropped this morning from 8.4 from 9.7. Of note he is on aspirin
and Plavix, in addition to heparin subcutaneous for DVT prophylaxis. He also was hypoglycemic this morning to 64 seen on the [facility], and continued to be hypoglycemic during the day today. Patient was set up for blood transfusion and unfortunately
during the transfusion he suffered a cardiac arrest. Rhythm was reportedly V-fib. Patient was defibrillated with 200 J that restored a slow narrow rhythm without pulse. Epi given and patient was resumed with CPR and patient intubated by
anesthesia. Patient then went back into V-fib and another 200 J was administered. Patient then developed a pulse with total code duration about 15 minutes before ROSC at approximately 1621. Patient now being transferred to the ICU for further
care and critical care services consulted for additional management/recommendations.
When I saw the patient the ICU he was intubated, on /5/100%, with PIP of 14 cmH2O, VTe of 509 mL and he was breathing at 22 breaths/min. Of note, he did get HD earlier today with plans to ultrafiltrate 2 g. Patient remains unresponsive,
continues to have maroon stool. Pupils are equal at about 3 mm. I spoke to the hospitalist, Dr. Camarillo, who had updated the family (daughter).
PMHx: ESRD on HD, valvular heart disease, hypertension, hyperlipidemia, hypothyroidism, history of CVA with residual left-sided facial droop, history of prostate cancer s/p XRT
PSHx: Hernia repair, left upper extremity AV fistula
Past Medical History
Past Medical History: Other (above as per HPI)
Past Surgical History: Other (above as per HPI)
Social History
Tobacco: Non-smoker
Alcohol: None
Drug: None
Personal: Single
Living: With Family
Employment: Retired
Family History
Family History: Reviewed & Not Pertinent
Allergies / Home Medications
Allergies
Allergy/AdvReac Type Severity Reaction Status Date / Time
No Known Allergies Allergy Verified 09/13/23 11:45
Home Medications
�Medication �Instructions �Recorded �Confirmed �Last Taken �Type
allopurinol 100 mg tablet 100 mg PO QPM Gout 10/11/22 09/13/23 09/12/23 History
amlodipine 5 mg tablet 5 mg PO DAILY Blood Pressure 10/11/22 09/13/23 09/13/23 History
aspirin 81 mg chewable tablet 81 mg PO NOON Blood Clot 10/11/22 09/13/23 09/12/23 History
Prevention/Tx
atorvastatin 40 mg tablet 40 mg PO QPM High Cholesterol 10/11/22 09/13/23 09/12/23 History
carvedilol 25 mg tablet 25 mg PO BID Blood Pressure 10/11/22 09/13/23 09/12/23 History
cholecalciferol (vitamin D3) 25 25 mcg PO NOON Supplement 10/11/22 09/13/23 09/12/23 History
mcg (1,000 unit) chewable tablet
(Vitamin D3)
levothyroxine 50 mcg capsule 50 mcg PO DAILY AT 0700 Thyroid 10/11/22 09/14/23 09/13/23 History
sevelamer carbonate 800 mg tablet 1,600 mg PO TID Kidney Disease 08/28/23 09/13/23 09/12/23 History
(Renvela)
vitamin B comp no.3-folic acid 1 1 tab PO NOON Supplement 08/28/23 09/13/23 09/12/23 History
mg-vit C 60 mg-biotin 300 mcg
tablet ([facility])
clopidogrel 75 mg tablet (Plavix) 75 mg PO DAILY 09/13/23 09/13/23 09/13/23 History
Review of Systems
-
Unable to Obtain full review of systems at this time due to: Acuity and Patient Intubation
Vitals / Labs / Diagnostic Testing
Vital Signs
Temp Pulse Resp BP Pulse Ox
98.8 F 103 20 123/64 100
09/16/23 15:46 09/16/23 15:46 09/16/23 15:46 09/16/23 15:45 09/16/23 16:47
Lab Data
09/16/23 08:20
Microbiology
09/13/23 16:36 Blood/Venous Blood Culture - Preliminary
No Growth in 72 hours- Final report to follow
09/13/23 16:30 Blood/Venous Blood Culture - Preliminary
No Growth in 72 hours- Final report to follow
09/15/23 05:42 Urine Urine Culture - Final
No Significant Growth
09/13/23 18:27 Nose MRSA Screen - Final
No Methicillin Resistant Staphylococcus aureus isolated.
Diagnostic Testing:
Physical Exam
-
HEENT: Normocephalic and Anicteric
Cardiovascular: S1/S2 and Peripheral Edema (Negative)
Respiratory: Wheeze (Negative), Rhonchi (Bilaterally) and Other (Mechanical breath sounds heard bilaterally)
GI: Soft, Distended and Non Tender
Neurology: Tremors (Negative) and Other (Pupils +3 and minimally reactive; not awakening or following commands)
Skin: Warm and Dry
General: Sweats (Negative)
Assessment
-
Assessment: 73-year-old AAM with a PMHx of ESRD on HD, hypertension, hyperlipidemia, valvular heart disease and history of CVA with residual left-sided facial droop presented with generalized weakness and fatigue. Patient was admitted to the
hospitalist service, was obtaining regularly scheduled dialysis and developed rectal bleeding on overnight from 09/14. There also was acute anemia. Blood transfusion started and then he suffered V-fib cardiac arrest. Patient was
defibrillated for total x 2, epi given and then ROSC obtained after approximately 15 minutes. Patient transferred to the ICU for further care and critical care services consulted for additional management/recommendations.
Chronic medical conditions [facility]: ESRD on HD, valvular heart disease, hypertension, hyperlipidemia, hypothyroidism, history of CVA with residual left-sided facial droop, history of prostate cancer s/p XRT
Impression:
#In-hospital cardiac arrest - rhythm was reportedly V-fib
#Acute respiratory failure with hypoxemia on mechanical ventilation
#Hematochezia -differential includes brisk UGIB, versus diverticulosis versus angiodysplasia versus AVM
#Acute on chronic anemia - suspected to be acute blood loss from LGIB
#Hypoglycemia
#Subclinical hypothyroidism
#ESRD on HD
#Stage II diastolic dysfunction with increased filling pressures suggestive of acute HFpEF
#Valvular heart disease with moderate MS, moderate
#Small PFO seen on TTE from 08/30/2023
Plan:
- Postcardiac arrest management with EKG, larsen scan with CT head, chest, A/P, only use prn fentanyl for pain as to help prognosticate and not over-sedate as he is currently not awakening or following commands
- Unable to do therapeutic hypothermia considering he is actively bleeding from bowel --> avoid fever (consider scheduled IV tylenol x 24 hrs)
- Consult neurology and check EEG
- Check post-intubation CXR and ABG
- Daily SAT/SBT if clinically appropriate; titrate PEEP and FiO2 to maintain SpO2 >94%
- Maintain plateau pressure <30
- Gastroenterology on board and he will need endoscopy; continue PPI for now --> change to gtt
- Hold all antiplatelets/anticoagulants for now
- Transfuse blood products to reach Hb >7, platelets >50k
- Check coags
- Cardiology on board; he really should obtain LHC urgently, but in setting of active GI bleed, this will need to be addressed first before coronary intervention can be safely done
- Continue dialysis as per nephrology - last session today
- Start antibiotics with cefepime/IV vancomycin; blood cultures already collected on 09/12; urine cultures collected on 09/14; check sputum culture today as well as Legionella/strep pneumonia urine antigens
- Maintain MAP>65
- Goal BG 140-180mg/dL and check BG q6hr; if BG remains low then start dextrose infusion
- Replete electrolytes with K>4, Mg>2
- stress ulcer ppx: PPI
- DVT ppx: SCDs
Critical care statement: A total of 40 minutes of critical care time was provided for this patient today. This includes management of unstable vital signs, evaluation of the patient at bedside, reviewing the patient's pertinent medical records
including radiographs, microbiology, laboratory evaluations, and discussion with primary team, consultants, pharmacy, nutrition, physical therapy, case management, charge nurse, critical care nursing, and respiratory therapy.
Data:
CXR 09-16-2023:
The endotracheal tube is well-positioned with the tip projecting 3 cm above the duc.
Mild left basilar retrocardiac opacity suggesting atelectasis or small pleural fluid. No pneumothorax. Enlargement of the cardiac silhouette. A loop recorder projects over the left anterior chest wall.
TTE 08-30-2023:
Normal left ventricular size, wall thickness and systolic function. No regional
wall motion abnormalities are seen. LV ejection fraction is 60% by Brock's
method of discs. Stage II diastolic dysfunction suggestive of abnormal
relaxation and increased filling pressures.
Upper normal right ventricular size and normal function.
Indexed LA volume is severely abnormal (> 48 mL/m2).
Severely dilated right atrium.
Moderate to severe mitral annular calcification. Thickened mitral valve
leaflets with restricted opening. Moderate mitral stenosis. Peak/mean
gradients across the mitral valve are 19/8 mmHg. Mild mitral regurgitation.
Calcified aortic valve. Trileaflet aortic valve. Thickened aortic valve with
restricted leaflet motion. Moderate aortic stenosis. Peak/mean gradients across
the aortic valve are 57/25 mmHg. Using an LVOT diameter of 2.1 cm, the VU =
1.5cm2. Trace aortic regurgitation.
Mild tricuspid regurgitation. Estimated pulmonary artery pressure of 48 mmHg,
assuming a right atrial pressure of 8 mmHg.
Small pericardial effusion circumferentially. Pleural effusion present.
Ascending aorta is borderline dilated at 3.7 cm.
Color flow pattern suggestive of small PFO.
No prior study available for comparison.
--- NOTE | 2023-09-16 17:06 | PHA.VAN.IN ---
Assessment
- Assessment
Renal Function: Patient has ESRD, on chronic Hemodialysis
Hemodialysis Schedule: TThSa
Concomitant Antimicrobials: cefepime
Plan
- Plan
Initial / Loading Dose: 1500mg - administration pending
Maintenance Regimen: dosing by level
Monitoring: random 09/16
Will obtain level in AM to ensure obtained appropriate level to maintain through Tues
Re-dose if level < 17; otherwise, repeat level Tues prior to HD
Follow nephrology plans and may obtain levels sooner if HD plans changed
Pharmacokinetics Vancomycin I
- -
Patient Age: 73
Patient Sex: Male
Vancomycin Day #: 1
Indication: Pulmonary/Respiratory
Requesting Provider: Dr. Lou
Pertinent Antimicrobial Allergies:
NKDA
Height / Weight:
Height 5 ft 6 in
Actual Weight 70.76 kg
Pertinent Past Medical History: ESRD on HD TTS, s/p VFib arrest
- Vital Signs / Lab Results
Temp Pulse Resp BP Pulse Ox
98.8 F 89 23 100/55 100
09/16/23 15:46 09/16/23 17:00 09/16/23 17:00 09/16/23 17:00 09/16/23 16:47
Lab Results - Hematology
09/14/23 09/15/23 09/16/23
01:07 06:07 08:36
WBC 11.6 H 11.7 H 12.2 H
Lab Results - Chemistry
09/14/23 09/15/23 09/16/23
01:07 06:07 08:20
BUN 16 12 45 H
Creatinine 5.6 H* 4.1 H* 5.6 H*
Estimated Creat Clear 10 14 10
Lab Results - Urine
09/15/23
05:42
Urine Nitrite (Reflex) Negative
Leukocyte Esterase Rfl Trace A
Urine WBC (Reflex) 30-40 A
Ur Squamous Epith Cells >30
Urine Bacteria (Reflex) Many A
Microbiology Results
09/13/23 16:36 Blood Culture - Preliminary
Blood/Venous No Growth in 72 hours- Final report to follow
09/13/23 16:30 Blood Culture - Preliminary
Blood/Venous No Growth in 72 hours- Final report to follow
09/15/23 05:42 Urine Culture - Final
Urine No Significant Growth
09/13/23 18:27 MRSA Screen - Final
Nose No Methicillin Resistant Staphylococcus aureus isolated.
[2023-09-16 17:10] LABS: B.E. -4.1 mmol/L; HCO3 19.2 mmol/L (21-28); PCO2 27 mmHg (35-48); PO2 395 mmHg (83-108); pH 7.46 (7.35-7.45)
[2023-09-16 17:14] LABS: Glucose - Point of Care 113 mg/dl (70-99)
--- NOTE | 2023-09-16 17:19 | PTCARENOTE ---
Patient received from floor intubated. Patient is unresponsive. No corneal reflex. No response to nail bed pressure. Pupils sluggish. Tolerating vent. Weaning down O2. + bowel sounds. incont of burgundy stool. Receiving PRBC at this time.
[2023-09-16] MEDS: LIPITOR PO (17:25)
--- NOTE | 2023-09-16 18:18 | CON.CAR ---
Consultation
Consultation Request
Date/Time Consultation Requested: 09/16/23 5:16pm
Date/Time Consultation Performed: 09/16/23 5:45pm
Requesting Provider: Dr. Camarillo
Performing Provider: Dr. Claros
Reason for Consultation: cardiac arrest
Medical History
-
Chief Complaint: cardiac arrest
History of Present Illness:
73-year-old male with past medical history of end-stage renal disease on hemodialysis, hypertension, moderate aortic stenosis, moderate mitral stenosis, prostate cancer, elevated lipids and history of CVA with residual left-sided facial droop
presents today with cardiac arrest. The patient was admitted 09/12 with fatigue, edema, confusion, and weakness. Subsequently on September 14 he developed a rectal bleed. His hemoglobin dropped down to 8.4. He was noted to be on aspirin and Plavix
due to history of stroke. While on the medical floor he was preparing for a blood transfusion when he suffered a cardiac arrest. CPR was initiated he was found to be in ventricular fibrillation. He was defibrillated and epinephrine and CPR
continued. He had another episode of V-fib and another shock was delivered. He then restored his rhythm at approximately 15 minutes after the initial event. He was not placed on pressors but was intubated and sedated. He did have dialysis
earlier today. Labs were sent and are pending. EKG is also pending. The patient currently has a stable blood pressure of 92/50 with a heart rate in the 70s. He continues to have episodes of dark maroon stool. He is full code per the family.
Past Medical History
Past Medical History: Cancer (Prostate cancer history of radiation), CVA (Residual facial droop), HTN, Hypercholesterolemia, Hypothyroidism and Valvular Disease (Moderate mitral stenosis and moderate aortic stenosis)
Past Surgical History: Urological
Social History
Tobacco: Non-Smoker
Alcohol: None
Drug: None
Living: With Family
Employment: Retired
Family History
Family History: Hypertension
Allergies / Home Medications
Allergy/AdvReac Type Severity Reaction Status Date / Time
No Known Allergies Allergy Verified 09/13/23 11:45
�Medication �Instructions �Recorded �Confirmed �Type
allopurinol 100 mg tablet 100 mg PO QPM Gout 10/11/22 09/13/23 History
amlodipine 5 mg tablet 5 mg PO DAILY Blood Pressure 10/11/22 09/13/23 History
aspirin 81 mg chewable tablet 81 mg PO NOON Blood Clot 10/11/22 09/13/23 History
Prevention/Tx
atorvastatin 40 mg tablet 40 mg PO QPM High Cholesterol 10/11/22 09/13/23 History
carvedilol 25 mg tablet 25 mg PO BID Blood Pressure 10/11/22 09/13/23 History
cholecalciferol (vitamin D3) 25 25 mcg PO NOON Supplement 10/11/22 09/13/23 History
mcg (1,000 unit) chewable tablet
(Vitamin D3)
levothyroxine 50 mcg capsule 50 mcg PO DAILY AT 0700 Thyroid 10/11/22 09/14/23 History
sevelamer carbonate 800 mg tablet 1,600 mg PO TID Kidney Disease 08/28/23 09/13/23 History
(Renvela)
vitamin B comp no.3-folic acid 1 1 tab PO NOON Supplement 08/28/23 09/13/23 History
mg-vit C 60 mg-biotin 300 mcg
tablet ([facility])
clopidogrel 75 mg tablet (Plavix) 75 mg PO DAILY 09/13/23 09/13/23 History
Review of Systems
-
Unable to obtain full review of systems at this time due to: Patient Intubation
History Source: Transfer Record and Physician
Constitutional: Fatigue
EENT: No Symptoms
Respiratory: Trouble Breathing
Cardiac: No Symptoms
Abdomen/GI: Bloody Stools
: No Symptoms
Musculoskeletal: Muscle Pain and Edema
Skin: No Symptoms
Neurological: No Symptoms
Endocrine: No Symptoms
Hematologic/Lymphatic: No Symptoms
Physical Exam
Vital Signs
Temp Pulse Resp BP Pulse Ox
99.1 F 80 17 84/48 100
09/16/23 17:59 09/16/23 17:59 09/16/23 17:59 09/16/23 17:59 09/16/23 17:17
Lab Results
Troponin I 0.046 ng/ml H* 09/14/23 01:07
Cbf-J-Xajalexujnk Pept > 12921 pg/ml 09/13/23 12:48
Physical Exam
General: Intubated
HEENT: Normocephalic and Anicteric
Respiratory: Rhonchi
Cardiac: S1/S2, Regular Rhythm and Murmur (08/22 syst RSB)
GI: Soft, Non Tender and Non Distended
Genito-urinary: No Costovertebral Tender
Musculoskeletal: Edema
Skin: Warm and Dry
Neuro: Sedated
Psych: Calm
Impression / Plan
-
Assessment:
V-fib arrest s/p shock x2/CPR 09/15
End-stage renal disease on hemodialysis
GI bleed
Hypertension
Hyperlipidemia
History of CVA with facial droop
Moderate mitral stenosis
Moderate aortic stenosis
Small pericardial effusion
History of prostate cancer status post XRT
Anemia
History of hypoglycemia
Hypothyroidism
Echo 08/30/23: EF 60%, dilated left and right atrium, moderate mitral stenosis, mild mitral regurgitation, mean mitral gradient 8, moderate aortic stenosis with mean aortic gradient 25 mmHg, mild TR PA pressure 48, small pericardial effusion, pleural
effusion, small PFO
PLan:
He is a complex medical patient who had a VF arrest today on the medical floor. He required shock x 2 with CPR and epinephrine to restore his pulse. He currently is intubated and sedated with a stable blood pressure and off pressors.
He has an active current GI bleed. Last hemoglobin was 6.9. He is getting 2 units of packed red blood cells and transfused. Continue to follow hemoglobin.
Check EKG. I suspect he does have some level of coronary artery disease with his underlying medical history. However with an active current GI bleed he would not be a candidate for cardiac cath or intervention at this time. We will treat him
medically. His blood pressure is currently on the low side. Await EKG and lab work.
Will likely continue carvedilol if blood pressure allows. Continue atorvastatin. Will check troponins. Would hold Plavix and aspirin for now. Hopefully resume aspirin over the next 12 to 24 hours.
Check electrolytes with hemodialysis today. Would replete potassium greater than 4 and magnesium greater than 2
Chest x-ray overall unremarkable with no pneumothorax.
Will repeat echocardiogram. Recent echocardiogram had moderate aortic and mitral stenosis with dilated atrium and mild pulmonary pretension. LVEF was preserved.
Data Reviewed
-
EKG: Report Reviewed by me
Radiology: Report Reviewed by me
Medical Tests (Nuc Med, Echo etc): Report Reviewed by me
Labs: Labs Reviewed by me
Old Records: Reviewed
Critical Care Time (in minutes): 55 min
--- NOTE | 2023-09-16 18:32 | PTCARENOTE ---
Bs at 1153 66, apple juice asifvin BS rechecked at 1213 was 46 and given orange juice. BS quickly kenia to 82 by 1231 and at 1341 was 77. BS recheck at 1445 was 73. PT remained aaox3, baseline restless, Restraints continued as per MD order. I did
add on video remote monitoring to assist with quicker safety as pt's room is at the end of the hallway and makes many attempts to get oob. Daughter was present this afternoon and was in tears. She stated her father is not normally like this and
was visibly upset about the changes. Daughter stated she would come back later this evening. I attempted to give emotional support but she did not seem open to it.
--- NOTE | 2023-09-16 18:36 | PTCARENOTE ---
Blood to start at 1537. Temp 99.0 HR 101-103 100% on room air RR 20. I did let the MD know about the vitals to ensure he was aware of new SIRS. I premedicated with two tylenol before start of transfusion. Transfusion started. Vitals stable
after 15 minutes. I left room.
--- NOTE | 2023-09-16 19:13 | W.PN.UPDATE ---
Update Note
Progress Note Update
Pt seen around 6:45 to f/u on the events that took place. Appparent Vfib arrest. Pt has had several episodes of bleeding with a hgb drop to 6.9 from 9.7. Vital sign including bp and pulse remained stable since morning until arrest around 4pm. He
had received 1 unit pRBCs by that time. Reviewing notes from nursing and speaking with current nurse, 2 large bms but others small, none since coming up from code. On my exam he has melena around his anal canal into the diaper but not profuse. I
do think this is a multifactorial event which includes GI bleeding, underlying cardiac pathology and under resuscitation.
Plan:
give more blood (only 1 unit given)
PPI ggt
monitor clinically and night nurse knows to directly contact me
cardiology following as patient has underlying cardiac disease
d/w Dr Claros who was also evaluating patient in room
--- NOTE | 2023-09-16 20:15 | PTCARENOTE ---
cannot verify vital signs captured prior to 1845.
[2023-09-16 21:13] LABS: Hematocrit 23.1 % (39.0-52.0); Hemoglobin 7.7 g/dL (13.0-18.0); Mean Corp Hgb Conc. 33.3 g/dL (33.0-37.0); Mean Corpuscular Hgb 29.4 pg (27.0-31.0); Mean Corpuscular Volume 88.2 fL (80.0-94.0); Mean Platelet Volume 10.5 fL (7.4-10.4); Platelet Count 166 10^3/uL (130-400); Red Blood Cell Count 2.62 10^6/uL (4.70-6.10); Red Cell Dist. Width 14.8 % (11.5-14.5); White Blood Cell Count 15.4 10^3/uL (4.8-10.8)
[2023-09-16 21:13] LABS: B.E. -3.9 mmol/L; HCO3 19.7 mmol/L (21-28); Ionized Calcium 1.27 mMOL/L (1.15-1.33); PCO2 29 mmHg (35-48); PO2 121 mmHg (83-108); Potassium 4.5 mMOL/L (3.5-5.1); Sodium 129 mMOL/L (136-145); pH 7.44 (7.35-7.45)
[2023-09-16 21:14] LABS: O2 Therapy Air 60
--- NOTE | 2023-09-16 21:15 | W.PN.UPDATE ---
Update Note
Progress Note Update
Procedure Note: Arterial Line�
� Right Wrist Arrow 20 (08/20)�
Diagnosis:s/p cardiac arrest, No IV access, GI Bleed, Vented��
IV Line Comments: Uneventful Procedure�
Theron's test completed pre-procedure: Yes�
A-Line Comments: Sterile technique as per standard protocol, Ultrasound guided insertion�
Functioning A-line in situ: Yes�
A-line Insertion Start Time:�2100�
A-line in at:��2105
[2023-09-16 21:27] LABS: INR 1.81; PT 20.9 Sec (11.4-14.6)
[2023-09-16 21:28] LABS: APTT 58.1 Sec (23.4-35.0); Blood Urea Nitrogen 31 mg/dl (9-20); Calcium 9.4 mg/dl (8.4-10.2); Carbon Dioxide 19 mmol/L (22-30); Chloride 94 mmol/L (98-107); Estimated Creatinine Clearance 17 ml/min; Glucose 82 mg/dl (70-99); Magnesium 2.1 mg/dl (1.6-2.3); Potassium 4.5 mmol/L (3.5-5.1); Sodium 127 mmol/L (135-145); eGFR 18.19
[2023-09-16] MEDS: PROTONIX IV 80 MG IV (21:29)
[2023-09-16] MEDS: NSS (PRESERVATIVE FREE) 20 ML IV (21:29)
[2023-09-16] MEDS: PROTONIX 100 IV (21:30)
[2023-09-16 21:33] LABS: Lactic Acid 10.7 mmol/L (0.7-2.0)
[2023-09-16] MEDS: SUBLIMAZE 50 MCG IV (22:00)
[2023-09-16] MEDS: VANCOCIN 300 MG IV (22:35)
[2023-09-16] MEDS: VANCOCIN 300 ML IV (22:35)
--- NOTE | 2023-09-16 22:46 | VATNOTE ---
Right Picc placed per order. First film showed tip brachiocephalic. Picc exchanged for longer length, tip was jugular. Picc repostioned per protocol and tip is now CAJ. security strategist aware.
[2023-09-16] MEDS: MAXIPIME 1000 MG IV (23:38)
[2023-09-16] MEDS: STERILE WATER FOR INJECTION 10 ML IV (23:38)
[2023-09-16 23:57] LABS: Glucose - Point of Care 65 mg/dl (70-99)
[2023-09-17 01:01] VITALS: BP 141/58
[2023-09-17] MEDS: DEXTROSE 50% SYRINGE 12.5 GRAMS IV ×2 (01:13→12:13)
[2023-09-17 01:23] LABS: Glucose - Point of Care 69 mg/dl (70-99)
--- NOTE | 2023-09-17 01:34 | PTCARENOTE ---
[id number]: Received pt intubated #8 ETT 24 R lip. No response to verbal, tactile or painful stimuli initially but now responds to painful stimuli but no purposeful movement noted. B/L UEs with non-purposeful movements. Wrist restraints for safety.
No corneals, weak gag. Pupils 4mm, sluggish B/L. No sedation. SR/ST on tele, HR 90s. Tachycardic and hypertensive at one point but appeared to be related to pain so fentanyl bolus given and HR and BP both improved. R radial A line placed by [employer]
[place]. Not correlating with cuff on calf (unable to use UEs due to limb alerts). Weak DPs. AFebrile via rectal probe. Tolerating A/C 14/400/+5/40%. Spo2 99-100%. Lungs dim at bases but CTA. Hypoactive bowel sounds. Having burgundy loose stools..
GI aware and TT'd with updates. Received 2nd unit of PRBCs that was ordered without complication. No void.. bladder scanned for 3mL. R PICC placed at ~1900 but VAT team had to reposition PICC twice. Was unable to use PICC until about 0. Protonix
gtt was hung in R AC INT until PICC able to be used then INT removed. Delay in care with PRBCs, antibiotics, and CT scan due to lack of IV access. Hypoglycemic, BGs in the 60s. 1/2 amp D50 given and now = 93. [employer] aware of all. Monitoring
[2023-09-17 01:43] LABS: Glucose - Point of Care 93 mg/dl (70-99)
[2023-09-17 02:34] VITALS: BP 141/58
[2023-09-17] MEDS: OFIRMEV 100 IV ×4 (02:40→20:18)
[2023-09-17] MEDS: PROTONIX 100 IV ×3 (03:26→23:34)
[2023-09-17 03:27] LABS: Hematocrit 26.5 % (39.0-52.0); Hemoglobin 8.7 g/dL (13.0-18.0); Mean Corp Hgb Conc. 32.8 g/dL (33.0-37.0); Mean Corpuscular Volume 88.3 fL (80.0-94.0); Mean Platelet Volume 9.7 fL (7.4-10.4); Platelet Count 154 10^3/uL (130-400); Red Cell Dist. Width 14.7 % (11.5-14.5); White Blood Cell Count 16.8 10^3/uL (4.8-10.8)
[2023-09-17 03:40] LABS: Blood Urea Nitrogen 36 mg/dl (9-20); Calcium 9.6 mg/dl (8.4-10.2); Carbon Dioxide 25 mmol/L (22-30); Chloride 92 mmol/L (98-107); Estimated Creatinine Clearance 17 ml/min; Glucose 90 mg/dl (70-99); Potassium 4.1 mmol/L (3.5-5.1); Sodium 128 mmol/L (135-145); eGFR 18.19
[2023-09-17 03:43] LABS: Lactic Acid 5.2 mmol/L (0.7-2.0)
[2023-09-17 03:44] LABS: Vancomycin Random 21.9 ug/ml
--- NOTE | 2023-09-17 03:47 | PTCARENOTE ---
Addendum entered by Usha Valdovinos RN 09/17/23 03:56:
[facility] notified. They are not sending anyone out at this time to evaluate pt. but to update them with any changes.
Original Note:
Pt reassessed. Pupils remain sluggish, no corneals. Weak gag/cough. Withdrawal to pain. No purposeful movements. Remains on no sedation. Temp slowly climbing to 100.0.. ofirmev given. Repeat labs drawn.
[2023-09-17 04:02] LABS: Glucose - Point of Care 77 mg/dl (70-99)
[2023-09-17 05:55] VITALS: BMI 24.7
[2023-09-17 06:09] LABS: Glucose - Point of Care 78 mg/dl (70-99)
[2023-09-17] MEDS: COREG PO (07:38)
[2023-09-17] MEDS: RENVELA PO ×3 (07:38→21:13)
--- NOTE | 2023-09-17 07:46 | CON.NEURO4 ---
Consultation - Neurology 4
-
CONSULTING PHYSICIAN: Rosana King
REFERRING PHYSICIAN: ICU
DICTATED BY: Rosana King
DATE/TIME OF REQUEST: 09/16/23
DATE/TIME OF CONSULTATION: 09/17/23
Reason for Consultation: Cardiac arrest, comatose
History of Present Illness:
The patient is a 73-year-old male with a past with history of previous ischemic stroke, end-stage renal disease on hemodialysis, hypertension who presented to the hospital initially generalized weakness and fatigue. Hematochezia early on in his
hospital course, of note is on aspirin and clopidogrel. During hospitalization developed hypoglycemia with blood sugars as low as 64 which was treated. He was also being treated with blood transfusion and during one of the blood transfusions
developed cardiac arrest with ventricular fibrillation. He received 1 defibrillation and then converted to PEA, given CPR and epinephrine and eventually went back into ventricular fibrillation with defibrillation and ROSC was obtained at
approximately 1621.
He was intubated and transferred to the ICU, noted to be poorly responsive. No overt seizure activity or myoclonus has been seen. Patient did not undergo any therapeutic hypothermia due to active bleeding.
Patient at this time stuporous, intubated.
Past Medical History: Ischemic stroke with left facial weakness, ESRD on hemodialysis, hypertension, moderate aortic and mitral stenosis, prostate cancer s/p radiation, hyperlipidemia
Surgical History: Hernia repair, left upper extremity AV fistula
Family History: Non-contributory
Social History: Retired, lives with family, no tobacco or alcohol
Allergies: No known drug allergies
Review of Symptoms:
Unable to obtain due to mental status
Physical Exam:
Elderly man appears stated age, intubated, no head or neck trauma, no neck masses no meningismus normal range of motion of the neck, heart rate regular, breathing unlabored breathing in synchrony with ventilator, abdomen soft non tender, right PICC
line in place, abdomen soft non tender, no lower extremity edema or rash seen
Neurologic Examination:
MS: Stuporous, eyes do not open spontaneously or to pain, does not track, does not obey commands, [id number]
CN: Pupils 3 mm equal round and reactive to light bilaterally, corneal reflex intact bilaterally, cough and gag reflexes intact, resting gaze midline and VOR is normal, no gaze deviation seen, no ptosis, face grossly symmetric
Motor/sensory: Normal bulk and tone, no abnormal movements no tremor or myoclonus, localizes with both arms showing 4/5 shoulder abduction and arm flexion to sternal rub more briskly on the right arm than the left, legs withdraw 4/5 hip flexion in
symmetric manner
Reflexes: Trace throughout, no clonus, babinski negative bilaterally
Coordination: Unable to assess
Gait: Unable to assess
Neuro Imaging: CT head noncontrast shows no acute infarct or hemorrhage, there is no cerebral edema, preserved joseph-white matter differentiation, chronic infarct in the right anterior portion of the adams radiata white matter, moderate chronic
ischemic microvascular disease in the white matter of the hemispheres more in the right, calcification of the vertebral arteries intracranially, no hydrocephalus no masses are seen
Impressions
1. Cardiac arrest with ventricular fibrillation and PEA total code time approximately 15 minutes
2. Likely has sustained a degree of anoxic brain injury based on neurologic examination and continuous EEG
3. Continuous EEG is showing a malignant pattern in the form of frequent generalized periodic discharges
4. CT head noncontrast did not show cerebral edema or loss of joseph-white matter differentiation but is not sensitive and is most likely too early to detect changes of anoxic for which MRI is more sensitive
5. Prognosis guarded although too early to be definitive at this point
Recommendations:
1. Continue continuous EEG monitoring, monitor for clinical seizure activity
2. Start levetiracetam 500 mg every 12 hours IV
3. Avoid fever which can worsen neurologic outcomes
4. Neurologic checks
5. Plan for repeat brain imaging approximately 72 hours after cardiac arrest ideally brain MRI without contrast
6. Follow electrolytes and CBC
7. With history of remote chronic stroke, acceptable to hold antiplatelets given current GI bleeding
8. Prognosis will be based on repeat brain imaging, EEG, neurologic examination
Will follow
ICU time = 60 minutes
Home Medications
-
Home Medications
allopurinol 100 mg tablet 100 mg PO QPM Gout 10/11/22
amlodipine 5 mg tablet 5 mg PO DAILY Blood Pressure 10/11/22
aspirin 81 mg chewable tablet 81 mg PO NOON Blood Clot Prevention/Tx 10/11/22
atorvastatin 40 mg tablet 40 mg PO QPM High Cholesterol 10/11/22
carvedilol 25 mg tablet 25 mg PO BID Blood Pressure 10/11/22
cholecalciferol (vitamin D3) 25 mcg (1,000 unit) chewable tablet (Vitamin D3) 25 mcg PO NOON Supplement 10/11/22
levothyroxine 50 mcg capsule 50 mcg PO DAILY AT 0700 Thyroid 10/11/22
sevelamer carbonate 800 mg tablet (Renvela) 1,600 mg PO TID Kidney Disease 08/28/23
vitamin B comp no.3-folic acid 1 mg-vit C 60 mg-biotin 300 mcg tablet (Melyssa-[facility]) 1 tab PO NOON Supplement 08/28/23
clopidogrel 75 mg tablet (Plavix) 75 mg PO DAILY 09/13/23
Allergies
-
Allergies
Allergy/AdvReac Type Severity Reaction Status Date / Time
No Known Allergies Allergy Verified 09/13/23 11:45
Vital Signs / Labs
-
Vital Signs and Labs:
Temp Pulse Resp BP Pulse Ox
99.9 F 80 22 141/58 96
09/17/23 07:43 09/17/23 07:00 09/17/23 07:00 09/17/23 02:34 09/17/23 07:00
09/17/23 03:13
09/15/23 09/16/23 09/16/23
23:49 08:20 08:36
WBC 12.2 H
RBC 2.93 L
Hgb 8.4 L
Hct 26.3 L
MCHC 31.9 L
RDW 15.1 H
MPV
Abs Immat Gran (auto) 0.1 H
Absolute Neuts (auto) 9.3 H
Absolute Monos (auto) 1.2 H
Neutrophils % 76.7 H
Lymphocytes % 12.7 L
Monocytes % 9.7 H
PT
APTT
pH
pCO2
pO2
HCO3
ABG O2 Sat (Measured)
Sodium 126 L
Chloride 92 L
Carbon Dioxide
BUN 45 H
Creatinine 5.6 H*
Glucose 64 L
Lactic Acid
TIBC 126 L
% Saturation 89 H
Ferritin 1940.0 H
Ammonia
Troponin I
POC Glucose
Crossmatch IS Only See Detail
09/16/23 09/16/23 09/16/23
10:01 11:53 12:13
WBC
RBC
Hgb 6.9 L*
Hct 20.9 L*
MCHC
RDW
MPV
Abs Immat Gran (auto)
Absolute Neuts (auto)
Absolute Monos (auto)
Neutrophils %
Lymphocytes %
Monocytes %
PT
APTT
pH
pCO2
pO2
HCO3
ABG O2 Sat (Measured)
Sodium
Chloride
Carbon Dioxide
BUN
Creatinine
Glucose
Lactic Acid
TIBC
% Saturation
Ferritin
Ammonia
Troponin I
POC Glucose 69 L 46 L*
Crossmatch IS Only
09/16/23 09/16/23 09/16/23
13:47 16:12 16:24
WBC
RBC
Hgb
Hct
MCHC
RDW
MPV
Abs Immat Gran (auto)
Absolute Neuts (auto)
Absolute Monos (auto)
Neutrophils %
Lymphocytes %
Monocytes %
PT
APTT
pH
pCO2
pO2
HCO3
ABG O2 Sat (Measured)
Sodium
Chloride
Carbon Dioxide
BUN
Creatinine
Glucose
Lactic Acid
TIBC
% Saturation
Ferritin
Ammonia < 9 L
Troponin I
POC Glucose 59 L 66 L
Crossmatch IS Only
09/16/23 09/16/23 09/16/23
16:57 17:03 21:03
WBC 15.4 H
RBC 2.62 L
Hgb 7.7 L
Hct 23.1 L
MCHC
RDW 14.8 H
MPV 10.5 H
Abs Immat Gran (auto)
Absolute Neuts (auto)
Absolute Monos (auto)
Neutrophils %
Lymphocytes %
Monocytes %
PT 20.9 H
APTT 58.1 H
pH 7.46 H
pCO2 27 L
pO2 395 H
HCO3 19.2 L
ABG O2 Sat (Measured) 100.0 H
Sodium 127 L
Chloride 94 L
Carbon Dioxide 19 L
BUN 31 H
Creatinine 3.4 H
Glucose
Lactic Acid 10.7 H*
TIBC
% Saturation
Ferritin
Ammonia
Troponin I 7.070 H*
POC Glucose 113 H
Crossmatch IS Only
09/16/23 09/16/23 09/17/23
21:04 23:45 01:12
WBC
RBC
Hgb
Hct
MCHC
RDW
MPV
Abs Immat Gran (auto)
Absolute Neuts (auto)
Absolute Monos (auto)
Neutrophils %
Lymphocytes %
Monocytes %
PT
APTT
pH
pCO2 29 L
pO2 121 H
HCO3 19.7 L
ABG O2 Sat (Measured) 100.0 H
Sodium 129 L
Chloride
Carbon Dioxide
BUN
Creatinine
Glucose
Lactic Acid
TIBC
% Saturation
Ferritin
Ammonia
Troponin I
POC Glucose 65 L 69 L
Crossmatch IS Only
09/17/23
03:13
WBC 16.8 H
RBC 3.00 L
Hgb 8.7 L
Hct 26.5 L
MCHC 32.8 L
RDW 14.7 H
MPV
Abs Immat Gran (auto)
Absolute Neuts (auto)
Absolute Monos (auto)
Neutrophils %
Lymphocytes %
Monocytes %
PT
APTT
pH
pCO2
pO2
HCO3
ABG O2 Sat (Measured)
Sodium 128 L
Chloride 92 L
Carbon Dioxide
BUN 36 H
Creatinine 3.4 H
Glucose
Lactic Acid 5.2 H*
TIBC
% Saturation
Ferritin
Ammonia
Troponin I
POC Glucose
Crossmatch IS Only
--- NOTE | 2023-09-17 07:54 | PTCARENOTE ---
Patient received this am. Assessment as documented. Patient is unresponsive to nailbed pressure. Does not follow commands. No corneal response. Does not track. Tolerating vent. No urine output. Protonix drip infusing as ordered.
--- NOTE | 2023-09-17 08:05 | PHA.VAN.FU ---
Vancomycin Assessment / Plan
- Assessment
Hemodialysis Schedule: TThSa
WBC's are: Trending Up
In the past 24 hrs, patient has been: Afebrile
Concomitant Antimicrobials: Cefepime
- Assessment - Therapeutic Drug Monitoring
Random Level: R = 21.9 ~ 5 hrs post Vanc 1500mg
- Dosing Plan
Continue: Dose by level
Dosing by Level: Hold off on dosing today
- Monitoring Plan
Random Level: 4/1 AM
- Follow Up
Pharmacy will continue to follow.
Vancomycin Follow UP
- -
Patient Age: 73
Patient Sex: Male
Vancomycin Day #: 2
Indication: Pulmonary/Respiratory
Requesting Provider: Dr. Lou
Pertinent Antimicrobial Allergies:
NKDA
Height / Weight:
Height 5 ft 6 in
Actual Weight 69.5 kg
Pertinent Past Medical History: ESRD on HD TTS, s/p VFib arrest
- Vital Signs / Lab Results
Temp Pulse Resp BP Pulse Ox
99.9 F 80 22 141/58 97
09/17/23 07:53 09/17/23 07:00 09/17/23 07:00 09/17/23 02:34 09/17/23 07:58
Lab Results - Hematology
09/15/23 09/16/23 09/16/23
06:07 08:36 21:03
WBC 11.7 H 12.2 H 15.4 H
09/17/23
03:13
WBC 16.8 H
Lab Results - Chemistry
09/15/23 09/16/23 09/16/23
06:07 08:20 21:03
BUN 12 45 H 31 H
Creatinine 4.1 H* 5.6 H* 3.4 H
Estimated Creat Clear 14 10 17
09/17/23
03:13
BUN 36 H
Creatinine 3.4 H
Estimated Creat Clear 17
09/16/23 09/17/23
21:03 03:13
Lactic Acid 10.7 H* 5.2 H*
Microbiology Results
09/13/23 16:36 Blood Culture - Preliminary
Blood/Venous No Growth in 72 hours- Final report to follow
09/13/23 16:30 Blood Culture - Preliminary
Blood/Venous No Growth in 72 hours- Final report to follow
09/15/23 05:42 Urine Culture - Final
Urine No Significant Growth
09/13/23 18:27 MRSA Screen - Final
Nose No Methicillin Resistant Staphylococcus aureus isolated.
Therapeutic Drug Monitoring
Random Vancomycin 21.9 ug/ml 09/17/23 03:13
--- NOTE | 2023-09-17 08:37 | W.PN.NEPH.PH ---
Today's Communication / Plan
-
next HD monday
Assessment/Plan
-
IMP:
Generalized weakness with ambulatory dysfunction edema
Peripheral edema
Hyponatremia
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
Left arm fistula 2019
Chronic anemia
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
Hx loop recorder 2022
HTN�benign
Hypothyroidism
Prostate cancer status post radiation in 2017
History of nephrolithiasis
Aortic stenosis
Plan:
HD planned for [facility]ThS while inpatient
VONDA as needed on dialysis for anemia
off amlodipine
cardiac cath deferred due to GIB
critical care time 31 minutes
-
-
Date of Service: September 17, 2023
CC / HPI / ROS
-
Chief Complaint:
ESRD
History of Present Illness:
tolerated HD yesterday
VFib arrest 09/15 evening
intubated in ICU
critically ill in ICU
BP stable without pressors
on IV iron for KASSANDRA
on Abx for presumed UTI
Review of Systems:
no CP/SOB
still BRBPR
Labs
-
Labs:
WBC 16.8 10^3/uL (4.8-10.8) H 09/17/23 03:13
RBC 3.00 10^6/uL (4.70-6.10) L 09/17/23 03:13
Plt Count 154 10^3/uL (130-400) 09/17/23 03:13
Sodium 128 mmol/L (135-145) L 09/17/23 03:13
Potassium 4.1 mmol/L (3.5-5.1) 09/17/23 03:13
Chloride 92 mmol/L (98-107) L 09/17/23 03:13
Carbon Dioxide 25 mmol/L (22-30) 09/17/23 03:13
BUN 36 mg/dl (9-20) H 09/17/23 03:13
Creatinine 3.4 mg/dL (0.7-1.3) H 09/17/23 03:13
eGFR 18.19 09/17/23 03:13
Glucose 90 mg/dl (70-99) 09/17/23 03:13
Calcium 9.6 mg/dl (8.4-10.2) 09/17/23 03:13
Xch-O-Ujqqhlpqcju Pept > 32707 pg/ml 09/13/23 12:48
Albumin 2.8 g/dl (3.5-5.0) L 09/13/23 12:48
Physical Exam
-
Vital Signs:
Vital Signs
Temp Pulse Resp BP Pulse Ox
99.9 F 80 22 141/58 98
09/17/23 07:53 09/17/23 07:00 09/17/23 07:00 09/17/23 02:34 09/17/23 08:00
Cardiovascular:: Regular rate and rhythm
Respiratory:: Bilateral: Coarse
Lung Excursion:: Normal
Abdomen:: Nontender and Soft
Bowel Sounds:: Normal
Extremity Edema:: None: Bilateral:
Other Findings::
AVF thrill
--- NOTE | 2023-09-17 08:43 | W.PN.CARDCBS ---
Today's Communication / Plan
-
Continue ventilatory care and neurologic evaluation for mental status and prognosis
Will add low-dose Lopressor IV as blood pressure has improved
Trend troponins. I expect them to continue to rise
Hopefully add aspirin over the next 12 to 24 hours. Hold Plavix
Check echo
At this point with his GI bleeding, he is not a cath candidate. Once his bleeding stops and this has been addressed, if he recovers his mental status we would then recommend cardiac cath
Impression / Plan
-
Assessment:
V-fib arrest s/p shock x2/CPR 09/15
End-stage renal disease on hemodialysis
GI bleed
Hypertension
Hyperlipidemia
History of CVA with facial droop
Moderate mitral stenosis
Moderate aortic stenosis
Small pericardial effusion
History of prostate cancer status post XRT
Anemia
History of hypoglycemia
Hypothyroidism
Echo 08/30/23: EF 60%, dilated left and right atrium, moderate mitral stenosis, mild mitral regurgitation, mean mitral gradient 8, moderate aortic stenosis with mean aortic gradient 25 mmHg, mild TR PA pressure 48, small pericardial effusion, pleural
effusion, small PFO
PLan:
He is a complex medical patient who had a VF arrest 09/15 on the medical floor. He required shock x 2 with CPR and epinephrine to restore his pulse. He currently is intubated and sedated with a stable blood pressure and off pressors. He has had no
further episodes of ventricular arrhythmia over the past 12 hours.
He has an active current GI bleed. Hemoglobin has improved from 6.9-8.7 status post transfusion. Await CT Scan
EKG does not have ST elevation. It has nonspecific T wave abnormalities. I suspect he does have some level of coronary artery disease with his underlying medical history. However with an active current GI bleed he would not be a candidate for
cardiac cath or intervention at this time. We will treat him medically. His blood pressure has improved. If blood pressure remains stable will add Lopressor 2.5 mg IV every 6. Hold for systolic blood pressures below 110. Troponin at 7 and
likely will continue to rise. We will check an echocardiogram. Continue to hold Plavix. Would hold aspirin for now until acute bleeding stops and then restart. Hopefully restart aspirin over the next 12 to 24 hours
Continue atorvastatin.
Check electrolytes with hemodialysis today. Would replete potassium greater than 4 and magnesium greater than 2
Chest x-ray overall unremarkable with no pneumothorax.
Recent echocardiogram had moderate aortic and mitral stenosis with dilated atrium and mild pulmonary pretension. LVEF was preserved.
CC time 36 min
Progress Note - [employer]
Subjective
Date of Service: September 17, 2023
Remains intubated. He has had no further ventricular arrhythmias over the past 12 hours. Continues to have intermittent GI bleeding.
Objective
Labs:
09/17/23 03:13
Labs
Hgb 8.7 g/dL (13.0-18.0) L 09/17/23 03:13
Hgb Cancelled 09/17/23 03:13
Hct 26.5 % (39.0-52.0) L 09/17/23 03:13
Hct Cancelled 09/17/23 03:13
Plt Count 154 10^3/uL (130-400) 09/17/23 03:13
PT 20.9 Sec (11.4-14.6) H 09/16/23 21:03
INR 1.81 09/16/23 21:03
APTT 58.1 Sec (23.4-35.0) H 09/16/23 21:03
Sodium 128 mmol/L (135-145) L 09/17/23 03:13
Potassium 4.1 mmol/L (3.5-5.1) 09/17/23 03:13
BUN 36 mg/dl (9-20) H 09/17/23 03:13
Creatinine 3.4 mg/dL (0.7-1.3) H 09/17/23 03:13
Glucose 90 mg/dl (70-99) 09/17/23 03:13
Troponins
09/16/23
21:03
Troponin I 7.070 H*
Vital Signs and I&O:
Vital Signs
Temp Pulse Resp BP Pulse Ox
99.9 F 80 22 141/58 98
09/17/23 07:53 09/17/23 07:00 09/17/23 07:00 09/17/23 02:34 09/17/23 08:00
Vital Signs
Temp Pulse Resp BP Pulse Ox
99.9 F 80 22 141/58 98
09/17/23 07:53 09/17/23 07:00 09/17/23 07:00 09/17/23 02:34 09/17/23 08:00
Intake & Output
09/15/23 09/16/23 09/17/23 09/18/23
06:59 06:59 06:59 06:59
Intake Total 720 / 720 1200 / 1200 1140 / 1150 20 / 20
Output Total 0 / 0
Balance 690 / 690 1200 / 1200 1140 / 1150 / 20
Physical Exam
Physical Exam
GEN: No distress, intubated
HEENT: supple, anicteric, mmm, ET tube
LUNGS: CTA, no wheezes/rales
CV: Reg, S1/S2, 3/6 syst LSB, no gallop
ABD: soft, BS+, NT/ND
EXT: No edema
NEURO: Some spontaneous movement
SKIN: No rash
--- NOTE | 2023-09-17 08:55 | W.PN.INTV ---
Today's Communication / Plan
Recommendations
Mechanical ventilation
Follow-up EEG
Antibiotics
HD as per nephrology
Endoscopy as per GI
Depending on patient's prognosis, ischemic workup as per cardiology
Hold antiplatelets/anticoagulants until bleed has stabilized
Administer vitamin K considering coagulopathy with elevated INR
Poor prognosis -this was discussed with the patient's daughter and I answered all of her questions.
Assessment
-
Assessment: 73-year-old AAM with a PMHx of ESRD on HD, hypertension, hyperlipidemia, valvular heart disease and history of CVA with residual left-sided facial droop presented with generalized weakness and fatigue. Patient was admitted to the
hospitalist service, was obtaining regularly scheduled dialysis and developed rectal bleeding on overnight from 09/14. There also was acute anemia. Blood transfusion started and then he suffered V-fib cardiac arrest. Patient was
defibrillated for total x 2, epi given and then ROSC obtained after approximately 15 minutes. Patient transferred to the ICU for further care and critical care services consulted for additional management/recommendations.
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
Impression:
#In-hospital cardiac arrest - rhythm was reportedly V-fib
#Acute respiratory failure with hypoxemia on mechanical ventilation
#Aspiration pneumonia/HAP (LLL)
#Hematochezia - differential includes brisk UGIB, versus diverticulosis versus angiodysplasia versus AVM
#Acute on chronic anemia - suspected to be acute blood loss from LGIB
#Coagulopathy with elevated INR
#Hypoglycemia
#Left kidney large heterogeneous mass measuring 8.6 x 7.7 cm with locoregional adenopathy and suspected vascular invasion and numerous intrahepatic lesions consistent with metastatic disease and peritoneal nodules
#Right pleural nodularity measuring 14 x 8 mm -DDx includes pleural plaque versus metastasis
#Subclinical hypothyroidism
#ESRD on HD
#Stage II diastolic dysfunction with increased filling pressures suggestive of acute HFpEF
#Valvular heart disease with moderate MS, moderate
#Small PFO seen on TTE from 08/30/2023
Plan:
- Postcardiac arrest management only use prn fentanyl for pain as to help prognosticate and not over-sedate as he is currently not awakening or following commands
- Unable to do therapeutic hypothermia considering he is actively bleeding from bowel --> avoid fever (consider scheduled IV tylenol x 24 hrs for targeted temperature management)
- Neurology consulted --> EEG being set up this AM
- Daily SAT/SBT if clinically appropriate; titrate PEEP and FiO2 to maintain SpO2 >94%
- Maintain plateau pressure <30
- Gastroenterology on board and he will need endoscopy; continue PPI gtt
- Hold all antiplatelets/anticoagulants for now
- Transfuse blood products to reach Hb >7, platelets >50k
- Administer vitamin K in setting of elevated INR
- Cardiology on board; he really should obtain LHC urgently, but in setting of active GI bleed, this will need to be addressed first before coronary intervention can be safely done
- Continue dialysis as per nephrology - last session on 09/15 --> his schedule is
- Continue antibiotics with cefepime; stop IV vanco given negative MRSA swab; blood cultures already collected on 09/12; urine cultures collected on 09/14; check sputum culture; Legionella/strep pneumonia urine antigens are (-)
- Maintain MAP>65
- Goal BG 140-180mg/dL and check BG q6hr; considering BG was again in the low 60s overnight, I will start D5�NS infusion
- Replete electrolytes with K>4, Mg>2
- stress ulcer ppx: PPI
- DVT ppx: SCDs
I discussed the critically ill state as well as the CT abdomen/pelvis findings concerning for metastatic disease with the patient's daughter, . She was very upset. She understands that if he does not wake up that he would not have any quality
of life, and then we would likely head towards withdrawal of care with transition to comfort at that time. She wants to continue full medical treatment for now, obtain EEG, see what could be reversed for him and take it day by day. All of her
questions were answered.
Critical care statement: A total of 41 minutes of critical care time was provided for this patient today. This includes management of unstable vital signs, evaluation of the patient at bedside, reviewing the patient's pertinent medical records
including radiographs, microbiology, laboratory evaluations, and discussion with primary team, consultants, pharmacy, nutrition, physical therapy, case management, charge nurse, critical care nursing, and respiratory therapy.
Data:
CT Chest/Abd/Pelvis with IV Contrast 09-17-2023:
Progressive large mass occupying and/or replacing the left kidney. 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 Probable invasion of the vascular structures in the left renal sinus. Extensive perinephric, retroperitoneal, and peritoneal
metastatic disease, as well has metastatic disease to the liver, adrenal glands, and spleen.
Right renal cortical atrophy with mild hydronephrosis and suggestion of soft tissue thickening along the mid ureter, raising the possibility of neoplasm.
Small to moderate left pleural effusion. Adjacent consolidation, likely atelectasis. Cannot entirely exclude pneumonia.
Small right pleural effusion. Right pleural nodularity measuring 14 x 8 mm (image 28 series 201.). Possible nonspecific pleural plaque versus metastasis.
Endotracheal tube in place distal tip approximately 1 cm above the duc.
Cholelithiasis.
Proximal common bile duct distention measuring 14 mm, appearing to taper to normal caliber distally. Nonspecific. Recommend correlation with liver function tests.
Incidental 5 mm cystic structure in the pancreatic body. Possible branch type intraductal papillary mucinous neoplasm.
CT Head without Contrast 09-17-2023:
No acute intracranial abnormality noted.
No acute intracranial hemorrhage. No mass effect. Stable moderate to advanced chronic microvascular white matter ischemic disease and small chronic infarcts.
CXR 09-16-2023:
The endotracheal tube is well-positioned with the tip projecting 3 cm above the duc.
Mild left basilar retrocardiac opacity suggesting atelectasis or small pleural fluid. No pneumothorax. Enlargement of the cardiac silhouette. A loop recorder projects over the left anterior chest wall.
TTE 08-30-2023:
Normal left ventricular size, wall thickness and systolic function. No regional
wall motion abnormalities are seen. LV ejection fraction is 60% by Brock's
method of discs. Stage II diastolic dysfunction suggestive of abnormal
relaxation and increased filling pressures.
Upper normal right ventricular size and normal function.
Indexed LA volume is severely abnormal (> 48 mL/m2).
Severely dilated right atrium.
Moderate to severe mitral annular calcification. Thickened mitral valve
leaflets with restricted opening. Moderate mitral stenosis. Peak/mean
gradients across the mitral valve are 19/8 mmHg. Mild mitral regurgitation.
Calcified aortic valve. Trileaflet aortic valve. Thickened aortic valve with
restricted leaflet motion. Moderate aortic stenosis. Peak/mean gradients across
the aortic valve are 57/25 mmHg. Using an LVOT diameter of 2.1 cm, the VU =
1.5cm2. Trace aortic regurgitation.
Mild tricuspid regurgitation. Estimated pulmonary artery pressure of 48 mmHg,
assuming a right atrial pressure of 8 mmHg.
Small pericardial effusion circumferentially. Pleural effusion present.
Ascending aorta is borderline dilated at 3.7 cm.
Color flow pattern suggestive of small PFO.
No prior study available for comparison.
Subjective Dataa
Subjective Data
Date of Service:
Date of Service: September 17, 2023
Chief Complaint: Manager Group Follow Up
Subjective:
Patient seen this morning. He remains intubated on 14/400/5/40%, with PIP 35, breathing at 18 breaths/min and VTe 427mL. End-tidal CO2 30, BP 120/40, heart rate 74. He is on a PPI drip. He does have a corneal and cough/gag reflex. He remains
unresponsive. Daughter came to bedside and I answered all of her questions. Emotional support was provided. EEG is being set up currently. Having burgundy stool this morning.
Review of Systems
General: Unobtainable - Pat Unresp
Objective Data
Data Reviewed
Vital Signs / I&O / Oxygen:
Vital Signs
Temp Pulse Resp BP Pulse Ox
99.9 F 80 22 141/58 98
09/17/23 07:53 09/17/23 07:00 09/17/23 07:00 09/17/23 02:34 09/17/23 08:00
Intake and Output
09/16/23 09/17/23 09/18/23
06:59 06:59 06:59
Intake Total 1200 / 1200 1140 / 1150
Output Total 0 / 0
Balance 1200 / 1200 1140 / 1150
SaO2 [A/C] 98
SaO2 97
Physical Exam
General: Other (Intubated male and unresponsive off of sedation)
HEENT: Normocephalic and Anicteric
Cardiovascular: S1-S2 and Peripheral Edema (Negative)
Respiratory: Wheeze (Negative), Crackles (Negative), Non-Labored Respirations, ET Tube and Other (Mechanical breath sounds heard bilaterally)
GI: Soft, Non Distended and Non Tender
Neurology: Unresponsive and Other (Positive sign corneal reflex bilaterally; absent pupillary light reflex bilaterally; positive cough/gag reflex)
Skin: Warm and Dry
Labs/Micro/Reports
Lab Data
09/17/23 03:13
Laboratory Results
09/16/23 09/16/23 09/16/23
16:57 21:03 21:04
PT 20.9 H
INR 1.81
APTT 58.1 H
pH 7.46 H 7.44
pCO2 27 L 29 L
pO2 395 H 121 H
HCO3 19.2 L 19.7 L
O2 Delivery Level Air 60
Microbiology
09/15/23 05:42 Urine Legionella Urinary Antigen - Final
Negative for Legionella pneumophila Serogroup 1 antigen.
A negative result does not rule out the possiblity of
Legionella infection due to other serogroups or species of
Legionella. Clinical correlation is recommended.
09/15/23 05:42 Urine Streptococcus pneumoniae Antigen (M - Final
Negative for Streptococcus pneumoniae antigen.
A negative result does not exclude infection with
Streptococcus pneumoniae. Clinical correlation is
recommended.
09/13/23 16:36 Blood/Venous Blood Culture - Preliminary
No Growth in 72 hours- Final report to follow
09/13/23 16:30 Blood/Venous Blood Culture - Preliminary
No Growth in 72 hours- Final report to follow
09/15/23 05:42 Urine Urine Culture - Final
No Significant Growth
09/13/23 18:27 Nose MRSA Screen - Final
No Methicillin Resistant Staphylococcus aureus isolated.
[2023-09-17 10:03] VITALS: BMI 24.7
[2023-09-17 10:03] LABS: Hematocrit 25.8 % (39.0-52.0); Hemoglobin 8.6 g/dL (13.0-18.0)
[2023-09-17 10:25] LABS: Lactic Acid 3.9 mmol/L (0.7-2.0)
--- NOTE | 2023-09-17 10:30 | W.PN.GI.CBS2 ---
Today's Communication / Plan
-
PPI ggt
follow hgb
Assessment / Plan
-
Pt is a 73yo with hx ESRD on HD, prostate CA with prior radiation 2013, CVA(now off Plavix since last year) , HTN, hyperlipidemia, hypothyroidism, DM no med, valvular disease with admission with weakness. Pt was noted with elevated BP and LE
swelling with concern for volume overload, hyponatremia, increased troponin with non ischemic injury, possible UTI and now noted overnight with rectal bleeding. hbg was 11-12 range now down to 9.7. In reviewing with daughter patient has had
several recent admission including admission 08/10/23 at [facility] then August at [facility] with extreme weakness. He was noted with new murmur last admission with concern for mitral and aortic stenosis. He now returns with similar symptoms and
continued weakness. Pt with new abdominal pain with occasional non bloody emesis. No EGD in past but due to to complete in October with [facility] due to anemia. Colonoscopy [address] Nunn. No NSAID use
-rectal bleeding black heme + stool on exam
-weakness on admission possible UTI
-acute on chronic anemia
-prostate CA with prior radiation
-hx CVA on ASA
-increased troponin
-murmur with mitral and aortic stenosis
other medical problems:
-ESRD on HD
-HTN
-hyperlipidemia
-CVA
-hypothyroidism
-DM no meds
Over last 24 hrs:
- Vfib arrest
- CT with likely metastatic cancer (renal source)
PLAN:
-GI bleeding appears to have stabilized and overall transfused 2 units of Prbcs with appropriate response
-In light of Vfib arrest and findings on CT would defer today
- continue PPI ggt
Subjective
Subjective
Date of Service: September 17, 2023
Pt seen at 6am and spoke with night nurse, no bleed per rectum after midnight. Did get second unit of blood around midnight due to access issues. Hemodynamically remained stable
Objective
Data Reviewed
Laboratory Data:
Laboratory Results
09/17/23 03:13
Laboratory Results
PT 20.9 Sec (11.4-14.6) H 09/16/23 21:03
INR 1.81 09/16/23 21:03
APTT 58.1 Sec (23.4-35.0) H 09/16/23 21:03
Magnesium 2.1 mg/dl (1.6-2.3) 09/16/23 21:03
Magnesium Cancelled 09/16/23 21:03
Total Bilirubin 1.1 mg/dl (0.2-1.3) 09/13/23 12:48
AST 74 U/L (17-59) H 09/13/23 12:48
ALT 29 U/L (0-50) 09/13/23 12:48
Alkaline Phosphatase 141 U/L (38-126) H 09/13/23 12:48
Lipase 177 U/L (23-300) 09/13/23 12:48
Vital Signs and I&O:
Vital Signs
Temp Pulse Resp BP Pulse Ox
99.9 F 80 22 141/58 98
09/17/23 07:53 09/17/23 07:00 09/17/23 07:00 09/17/23 02:34 09/17/23 08:00
I&O
09/16/23 09/17/23 09/18/23
06:59 06:59 06:59
Intake Total 1200 / 1200 1140 / 1150
Output Total 0 / 0
Balance 1200 / 1200 1140 / 1150
Physical Exam
Physical Exam
HEENT: Other (intubated, sedated)
Neuro: Non Focal (sedated)
[2023-09-17] MEDS: LOPRESSOR 2.5 MG IV ×3 (12:14→23:36)
[2023-09-17] MEDS: NEPHROCAP PO (12:14)
[2023-09-17] MEDS: VITAMIN D3 (cholecalciferol) PO (12:14)
[2023-09-17 12:19] LABS: Glucose - Point of Care 62 mg/dl (70-99)
[2023-09-17] MEDS: KEPPRA 500 MG IV ×2 (12:20→20:18)
[2023-09-17 12:45] LABS: Glucose - Point of Care 90 mg/dl (70-99)
[2023-09-17 13:55] VITALS: BP 98/29
[2023-09-17 14:36] LABS: Glucose - Point of Care 71 mg/dl (70-99)
[2023-09-17] MEDS: LIPITOR PO (15:26)
--- NOTE | 2023-09-17 15:32 | W.PN.HOSP.TC ---
Today's Communication/Plan
-
continue vent wean sedation as able
wean pressors
continue IV Abx
continue PPI drip - can pursue EGD if consistent with family wishes. all blood thinners on hold
medically management of trop elevation
continue EEG and neuro follow up
prognosis poor
Assessment / Plan
Assessment / Plan
Assessment and plan:
V. Fib arrest 09/16/23
- see code details
- could not pursue therapeutic hypothermia due to active GI bleed
- trop 20 - trend to peak
- likely primary cardiac event given initial rhythm V. Fib, but cannot pursue urgently needed cath with current mental status and GI bleed. Cannot heparinize.
- continue IV BB
- Echo: normal LV size/function. EF 60%, stage 2 DD, severely dilated RA, moderate MS, moderate
- [facility]
- current intubated for VDRF but off pressors
- Neuro following for neuro-prognostication; on cEEG and Keppra. Monitor for signs of neurological recovery. eventual MRI
Acute GI bleed
Acute blood loss anemia, exacerbated by ASA/Plavix
- 2 units ordered today
- s/p 2 unit PRBCs
- continue PPI gtt
- EGD if in line with GOC
Leukocytosis
Septic shock suspected
- wean pressors
- empiric IV Cefepime started by ICU; follow cultures
Acute Volume Overload/Hypervolemic Hyponatremia
ESRD on HD //
- Nephrology following
TME on admission
- transient, related to hypoglycemia
- continue D5 fluids for hypoglycemia
- workup prior to Code was negative
large heterogeneous mass measuring approximately 8.6 x 7.7 cm arising from and/or completely replacing the left kidney
- with Associated heterogeneous nodular soft tissue enhancement. Numerous enhancing heterogeneous perinephric soft tissue nodules, adenopathy/metastatic disease. Vascular structures within the renal sinus is difficult to delineate, with probable
vascular invasion.
- On the right, advanced renal cortical atrophy. Hydronephrosis. Along the course of the mid ureter, there is a suggestion of soft tissue attenuation, which could suggest infection or neoplasm numerous right perinephric small soft tissue nodules are
noted, adenopathy versus metastatic disease.
- also Extensive confluent diffuse retroperitoneal adenopathy and mets to peritoneum, adrenal glands
- family aware of diagnosis of stage 4, presumed renal cancer
Generalized weakness related to all above diagnosis
Essential Hypertension
- holding oral BP meds with shock
Hyperlipidemia
- continue atorvastatin
Hypothyroidism
- continue levothyroxine
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
- holding Plavix
Hx Prostate Cancer s/p Radiation
DVT proph: SCDs with active GI bleed
Code Status: Full Code
Poor prognosis. ICU MD discussed with daughter, family considering withdrawal but wish to take it day by day and continue medical management for now.
Total Critical Care Time 45 minutes. I was immediately available to the patient and staff. I personally examined, reviewed labs, diagnostic images/reports, interpretations, treatment plans, discussed patient care with other providers and family
or caregivers (if patient is unable to make decisions), entered orders as appropriate and documented the medical record.
Anticipated Discharge: > 48 hours
Subjective/Interval History
-
Date of Service: September 17, 2023
s/p VFib arrest - code events reviewed
transferred to ICU - given blood, pressors
IV Abx started
later CT imaging revealed metastatic cancer
remains unresponsive at this time on vent
Objective Data
-
Labs:
Laboratory Results
09/17/23 09/17/23 09/17/23
03:13 09:37 16:00
WBC 16.8 H
Hgb 8.7 L 8.6 L Pending
Hct 26.5 L 25.8 L Pending
Plt Count 154
Sodium 128 L
Potassium 4.1
Chloride 92 L
Carbon Dioxide 25
BUN 36 H
Creatinine 3.4 H
Glucose 90
Calcium 9.6
09/17/23
22:00
WBC
Hgb Pending
Hct Pending
Plt Count
Sodium
Potassium
Chloride
Carbon Dioxide
BUN
Creatinine
Glucose
Calcium
Vital Signs:
Vital Signs
Temp Pulse Resp BP Pulse Ox
99.9 F 80 22 141/58 99
09/17/23 15:31 09/17/23 07:00 09/17/23 07:00 09/17/23 02:34 09/17/23 11:55
I&O
09/16/23 09/17/23 09/18/23
06:59 06:59 06:59
Intake Total 1200 / 1200 1140 / 1150 20 / 20
Output Total 0 / 0
Balance 1200 / 1200 1140 / 1150 20 / 20
Physical Exam
-
General: Intubated and Other (on cEEG)
HEENT: Normocephalic and Atraumatic
Respiratory: Negative Wheezes or Rales
Cardiac: Regular Rhythm and S1/S2
GI: Soft
Neuro: Sedated
Psych: Calm
Data Reviewed
-
Critical Care Time (in minutes): 45
Labs: Labs Reviewed by me
[2023-09-17 15:59] LABS: Hematocrit 26.6 % (39.0-52.0)
[2023-09-17] MEDS: AQUAMEPHYTON 52.5 MG IV (16:02)
[2023-09-17] MEDS: D5/0.9% SODIUM CHLORIDE 1000 IV (16:02)
[2023-09-17 16:09] LABS: Lactic Acid 3.9 mmol/L (0.7-2.0)
--- NOTE | 2023-09-17 16:40 | PTCARENOTE ---
Family at bedside. Support offered. Update given.
[2023-09-17 17:23] LABS: Glucose - Point of Care 70 mg/dl (70-99)
--- NOTE | 2023-09-17 20:00 | PTCARENOTE ---
Rec'd pt on cont EEG, CINDY at 3mm, sluggish, + corneal, + cough, weak gag,no response to commands, temp 99.5, R rad sebastian w/ good wave form,flushes well, zeroed, unable to get cuff bp, L arm fistula w/good bruit/ thrill, weak distal pulses, skin
warm/dry, #8 oral ett- moved to R at 25 cm, ac 14, tv 400, 5 peep, 40%, lungs coarse, decr in bases, suct for thick belle secretions- specimen sent, sat 100, hypo bowel sounds, rectal trempet intact , abd soft/ round, oliguric, protonix gtt cont at
10ml/hr
[2023-09-17 21:30] LABS: Hematocrit 26.8 % (39.0-52.0); Hemoglobin 9.1 g/dL (13.0-18.0)
[2023-09-17] MEDS: MAXIPIME 1000 MG IV (23:35)
[2023-09-17] MEDS: STERILE WATER FOR INJECTION 10 ML IV (23:35)
[2023-09-17 23:45] LABS: Glucose - Point of Care 84 mg/dl (70-99)
[2023-09-18] VITALS: BP 126/47
--- NOTE | 2023-09-18 | PTCARENOTE ---
sys reviewed, changes noted, CHG bath done, linens changed
[2023-09-18] MEDS: OFIRMEV 100 IV ×2 (02:07→09:03)
[2023-09-18 03:30] LABS: Hematocrit 26.7 % (39.0-52.0); Hemoglobin 9.2 g/dL (13.0-18.0); Mean Corp Hgb Conc. 34.5 g/dL (33.0-37.0); Mean Corpuscular Hgb 29.8 pg (27.0-31.0); Mean Corpuscular Volume 86.4 fL (80.0-94.0); Mean Platelet Volume 10.2 fL (7.4-10.4); Platelet Count 199 10^3/uL (130-400); Red Blood Cell Count 3.09 10^6/uL (4.70-6.10); Red Cell Dist. Width 15.4 % (11.5-14.5); White Blood Cell Count 17.7 10^3/uL (4.8-10.8)
[2023-09-18 03:45] LABS: B.E. -0.1 mmol/L; HCO3 23.6 mmol/L (21-28); O2 Saturation % 99.5 % (94-98); PCO2 34 mmHg (35-48); PO2 186 mmHg (83-108); pH 7.45 (7.35-7.45)
--- NOTE | 2023-09-18 03:52 | PTCARENOTE ---
sys reviewed, changes noted, ett repos on left side at 25cm, neuro unch
[2023-09-18 03:56] LABS: Lactic Acid 4.7 mmol/L (0.7-2.0)
[2023-09-18 04:13] LABS: ALT (SGPT) 63 U/L (0-50); AST (SGOT) 216 U/L (17-59); Albumin 2.2 g/dl (3.5-5.0); Alkaline Phosphatase 203 U/L (38-126); Blood Urea Nitrogen 47 mg/dl (9-20); Calcium 9.5 mg/dl (8.4-10.2); Carbon Dioxide 23 mmol/L (22-30); Chloride 96 mmol/L (98-107); Estimated Creatinine Clearance 12 ml/min; Glucose 72 mg/dl (70-99); Potassium 4.2 mmol/L (3.5-5.1); Sodium 127 mmol/L (135-145); Total Bilirubin 1.5 mg/dl (0.2-1.3); Total Protein 4.1 g/dl (6.3-8.2); eGFR 12.33
--- NOTE | 2023-09-18 05:45 | PTCARENOTE ---
acc - 68, 1/2 amp d50 iv given, repeat accu 99
[2023-09-18] MEDS: DEXTROSE 50% SYRINGE 12.5 GRAMS IV ×5 (05:47→23:40)
[2023-09-18] MEDS: D5/0.9% SODIUM CHLORIDE 1000 IV (05:50)
[2023-09-18 05:57] LABS: Glucose - Point of Care 68 mg/dl (70-99)
[2023-09-18 06:00] VITALS: BMI 25.1
[2023-09-18] MEDS: LOPRESSOR 2.5 MG IV (06:11)
[2023-09-18 06:17] LABS: Glucose - Point of Care 99 mg/dl (70-99)
--- NOTE | 2023-09-18 06:28 | EEGC.RPT ---
Continuous EEG Report
Recording
Start Date of Data Reviewed: 09/18/23
Start Time of Data Reviewed: 10:28
End Date of Data Reviewed: 09/18/23
End Time of Data Reviewed: 06:46
Type of EEG: Continuous
Done with Video Recording: Yes
Study Sequence: Continuation of ongoing Study
Electrocardiogram: Unremarkable
Report
CONTINUOUS EEG REPORT
EEG INTERPRETATION:
Abnormal EEG based on frequent generalized periodic discharges. At times these resolve and a delta background is seen.
CLINICAL CORRELATION:
This study shows moderate global cerebral dysfunction and can be seen in anoxic brain injury.
Clinical correlation is advised.
METHODS:
A 21-channel digital electroencephalogram (EEG) was performed at the bedside. The 10/20 international system of electrode placement was used with ECG and lateral/vertical eye movements recorded. Video was recorded. Duration of this recording 18
hours and 35 minutes.
IMPRESSION(S):
Quality of study
Good
Background
Predominantly suppressed background
No background asymmetry seen
Sleep
Drowsiness present
Hyperventilation
Not performed
Photic Stimulation
Not performed
ECG
Normal rhythm
Abnormal Activity
Frequent generalized periodic discharges at a frequency of 2 Hz or less. There are periods where these discharges bee and there is a delta background.
--- NOTE | 2023-09-18 07:17 | W.PN.INTV ---
Today's Communication / Plan
Recommendations
Continue on abx, sputum culture pending
HD session to continue tomorrow
Limit further IVFs/volume in gtts
Ongoing EEG/neuro w/u for MS, likely anoxic with poor recovery
If no planning for EGD, can place DHT to feed
SBT if able
GOC discussions ongoing with family--updated daughter today
Assessment
-
73-year-old AAM with a PMHx of ESRD on HD, hypertension, hyperlipidemia, valvular heart disease and history of CVA with residual left-sided facial droop presented with generalized weakness and fatigue. Patient was admitted to the hospitalist
service, was obtaining regularly scheduled dialysis and developed rectal bleeding on overnight from 09/14. There also was acute anemia. Blood transfusion started and then he suffered V-fib cardiac arrest. Patient was defibrillated for total
x 2, epi given and then ROSC obtained after approximately 15 minutes. Patient transferred to the ICU for further care and critical care services consulted for additional management/recommendations.
Impression:
#In-hospital cardiac arrest - rhythm was reportedly V-fib
#Acute respiratory failure with hypoxemia on mechanical ventilation
#Aspiration pneumonia/HAP (LLL)
#Hematochezia - differential includes brisk UGIB, versus diverticulosis versus angiodysplasia versus AVM
#Acute on chronic anemia - suspected to be acute blood loss from LGIB
#Coagulopathy with elevated INR
#Hypoglycemia
#Left kidney large heterogeneous mass measuring 8.6 x 7.7 cm with locoregional adenopathy and suspected vascular invasion and numerous intrahepatic lesions consistent with metastatic disease and peritoneal nodules
#Right pleural nodularity measuring 14 x 8 mm -DDx includes pleural plaque versus metastasis
#Subclinical hypothyroidism
#ESRD on HD
#Stage II diastolic dysfunction with increased filling pressures suggestive of acute HFpEF
#Valvular heart disease with moderate MS, moderate
#Small PFO seen on TTE from 08/30/2023
Chronic medical conditions ENVIRONMENTAL SERVICES TECH:
ESRD on HD
valvular heart disease
hypertension
hyperlipidemia
hypothyroidism
history of CVA with residual left-sided facial droop
history of prostate cancer s/p XRT
Plan
Postcardiac arrest management -only use prn fentanyl for pain as to help prognosticate and not over-sedate as he is currently not awakening or following commands
H/o CVA in past
Unable to do TTM considering he is actively bleeding from bowel --> avoid fever (consider scheduled IV tylenol x 24 hrs for targeted temperature management)
Neurology consulted --> EEG currently on board
Anoxic injury likely
s/p cardiac arrest
Cardiology on board; he really should obtain LHC urgently, but in setting of active GI bleed, this will need to be addressed first before coronary intervention can be safely done
Acute DHF likely
ECHO reviewed with DD II/moderate PH/PFO
Can hold antiHTNs until pressure stable
Maintain MAP>65
Intubated post cardiac arrest
Daily SAT/SBT if clinically appropriate; titrate PEEP and FiO2 to maintain SpO2 >94%
Maintain plateau pressure <30
CFP IV for possible PNA, CXR showing R sided opacity likely volume overload
Sputum culture pending
Extubation likely precluded given MS
NPO for now, GIB noted
Gastroenterology on board and he will need endoscopy; continue PPI gtt
Hold all antiplatelets/anticoagulants for now
Transfuse blood products to reach Hb >7, platelets >50k
Will need DHT if plan is not to scope, TFs
ESRD on HD
Continue dialysis as per nephrology - last session on 09/15 --> his schedule is
Next session in AM
Volume overload continues but not impacting vent requirements
Continue antibiotics with cefepime
Stop IV vanco given negative MRSA swab
Blood cultures already collected on 09/12
Urine cultures collected on 09/14
Check sputum culture-pending; Legionella/strep pneumonia urine antigens are (-)
Diffuse metastatic disease suspected based on CT report, primary transitional cell vs RCC
History of prostate ca in past
Administer vitamin K in setting of elevated INR
Mild anemia noted, monitor CBC for now
Goal BG 140-180mg/dL and check BG q6hr
Low glucose in 60s overnight, started on D5�NS infusion
DVT ppx: SCDs/no OAC given bleeding
Prognosis overall poor
Patient remains full code
Family Discussions
Vincent 09/18/23- I updated daughter today. She has been discussing with her siblings about her father's GOC. There is 4 children total. She wants to make sure they are all on the same page regarding code status. We discussed options regarding
tracheostomy vs withdrawal.
Lou 09/17/23- I discussed the critically ill state as well as the CT abdomen/pelvis findings concerning for metastatic disease with the patient's daughter, . She was very upset. She understands that if he does not wake up that he would not
have any quality of life, and then we would likely head towards withdrawal of care with transition to comfort at that time. She wants to continue full medical treatment for now, obtain EEG, see what could be reversed for him and take it day by day.
All of her questions were answered.
Diagnostic Data
CT Chest/Abd/Pelvis with IV Contrast 09-17-2023: Progressive large mass occupying and/or replacing the left kidney. 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 Probable invasion of the vascular structures in the left renal sinus.
Extensive perinephric, retroperitoneal, and peritoneal metastatic disease, as well has metastatic disease to the liver, adrenal glands, and spleen. Right renal cortical atrophy with mild hydronephrosis and suggestion of soft tissue thickening along
the mid ureter, raising the possibility of neoplasm. Small to moderate left pleural effusion. Adjacent consolidation, likely atelectasis. Cannot entirely exclude pneumonia. Small right pleural effusion. Right pleural nodularity measuring 14 x 8 mm
(image 28 series 201.). Possible nonspecific pleural plaque versus metastasis. Endotracheal tube in place distal tip approximately 1 cm above the duc. Cholelithiasis. Proximal common bile duct distention measuring 14 mm, appearing to taper to
normal caliber distally. Nonspecific. Recommend correlation with liver function tests. Incidental 5 mm cystic structure in the pancreatic body. Possible branch type intraductal papillary mucinous neoplasm.
CT Head without Contrast 09-17-2023: No acute intracranial abnormality noted. No acute intracranial hemorrhage. No mass effect. Stable moderate to advanced chronic microvascular white matter ischemic disease and small chronic infarcts.
CXR 09-16-2023: The endotracheal tube is well-positioned with the tip projecting 3 cm above the duc. Mild left basilar retrocardiac opacity suggesting atelectasis or small pleural fluid. No pneumothorax. Enlargement of the cardiac silhouette. A
loop recorder projects over the left anterior chest wall.
TTE 2023: Normal left ventricular size, wall thickness and systolic function. No regional wall motion abnormalities are seen. LV ejection fraction is 60% by Brock's method of discs. Stage II diastolic dysfunction suggestive of abnormal
relaxation and increased filling pressures. Upper normal right ventricular size and normal function. Indexed LA volume is severely abnormal (> 48 mL/m2).
Severely dilated right atrium. Moderate to severe mitral annular calcification. Thickened mitral valve leaflets with restricted opening. Moderate mitral stenosis. Peak/mean gradients across the mitral valve are 19/8 mmHg. Mild mitral
regurgitation. Calcified aortic valve. Trileaflet aortic valve. Thickened aortic valve with restricted leaflet motion. Moderate aortic stenosis. Peak/mean gradients across the aortic valve are 57/25 mmHg. Using an LVOT diameter of 2.1 cm, the VU
= 1.5cm2. Trace aortic regurgitation. Mild tricuspid regurgitation. Estimated pulmonary artery pressure of 48 mmHg,
assuming a right atrial pressure of 8 mmHg. Small pericardial effusion circumferentially. Pleural effusion present. Ascending aorta is borderline dilated at 3.7 cm. Color flow pattern suggestive of small PFO. No prior study available for
comparison.
-----
Critical Care time 50 mins -- The patient is admitted for acute critical illness for the treatment of vital organ failure and/or prevention of further life-threatening conditions. Total care includes time spent in review of history, physical exam,
medications, hemodynamic/ventilator parameters, laboratory data, imaging and discussion with house staff, pharmacy, respiratory therapy, tile setter supervisor, and nursing.
Subjective Dataa
Subjective Data
Date of Service:
Date of Service: September 18, 2023
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
Subjective:
patient seen and examined, remains critically ill
on EEG, MS poor
Objective Data
Data Reviewed
Vital Signs / I&O / Oxygen:
Vital Signs
Temp Pulse Resp BP Pulse Ox
98.9 F 83 14 117/42 100
09/18/23 03:14 09/18/23 06:11 09/18/23 06:14 09/18/23 06:11 09/18/23 06:00
Intake and Output
09/17/23 09/18/23 09/19/23
06:59 06:59 06:59
Intake Total 1140 / 1150 1914
Output Total 0 / 0 0 / 0
Balance 1140 / 1150 1914
SaO2 [A/C] 100
SaO2 100
Physical Exam
General: Other (Intubated male and unresponsive off of sedation)
HEENT: Normocephalic and Anicteric
Cardiovascular: S1-S2, Regular Rhythm and Peripheral Edema (Negative)
Respiratory: Clear, Wheeze (Negative), Crackles (Negative), Non-Labored Respirations, ET Tube and Other (Mechanical breath sounds heard bilaterally)
GI: Soft, Non Distended and Non Tender
Neurology: Unresponsive and Other (Positive sign corneal reflex bilaterally; absent pupillary light reflex bilaterally; positive cough/gag reflex)
Skin: Warm and Dry
Labs/Micro/Reports
Lab Data
09/18/23 03:20
09/18/23 03:20
Laboratory Results
09/18/23
03:20
pH 7.45
pCO2 34 L
pO2 186 H
HCO3 23.6
O2 Delivery Level
Microbiology
09/13/23 16:36 Blood/Venous Blood Culture - Preliminary
No Growth in 4 days- Final report to follow
09/13/23 16:30 Blood/Venous Blood Culture - Preliminary
No Growth in 4 days- Final report to follow
09/17/23 03:13 Nose Nasal Screen MRSA (PCR) - Final
MRSA not detected - performed by PCR methodology.
09/15/23 05:42 Urine Legionella Urinary Antigen - Final
Negative for Legionella pneumophila Serogroup 1 antigen.
A negative result does not rule out the possiblity of
Legionella infection due to other serogroups or species of
Legionella. Clinical correlation is recommended.
09/15/23 05:42 Urine Streptococcus pneumoniae Antigen (M - Final
Negative for Streptococcus pneumoniae antigen.
A negative result does not exclude infection with
Streptococcus pneumoniae. Clinical correlation is
recommended.
09/15/23 05:42 Urine Urine Culture - Final
No Significant Growth
09/13/23 18:27 Nose MRSA Screen - Final
No Methicillin Resistant Staphylococcus aureus isolated.
[2023-09-18] MEDS: KEPPRA 500 MG IV (07:28)
[2023-09-18] MEDS: RENVELA PO (07:34)
[2023-09-18] MEDS: PROTONIX 100 IV ×2 (07:57→18:21)
--- NOTE | 2023-09-18 08:00 | PTCARENOTE ---
Received pt with eyes closed.Does not open eyes to stimuli.slight grimace with mouth care noted,+ withdrawal to peripheral noxious stimuli.CINDY 3mm sluggishly responsive.SR noted.IVF and Protonix gtt via right DL PICC.# 8 ETT to vent.POX
100%Decreased breath sounds bibasilar.NPO.Rectal trumpet intact with stool.No urine output.
--- NOTE | 2023-09-18 08:44 | W.PN.CARDCBS ---
Addendum entered and electronically signed by Thai Queen MD 09/18/23 18:19:
Findings of abdominal/pelvic CT of September 16 noted, await decisions regarding level of care in the setting of VF arrest with severe anoxic encephalopathy and presumed widely metastatic and advanced renal cell carcinoma. Hospice/comfort care seems
the best option.
Original Note:
Today's Communication / Plan
-
If efforts regarding care are to continue:
Place Dobbhoff
Switch metoprolol to p.o.
Aspirin via tube
Statin
Prognosis poor
Impression / Plan
-
Assessment:
Admitted 09/12 with weakness and fatigue
In hospital V-fib arrest s/p shock x2/CPR 09/15, peak troponin 21, proBNP greater than 27,000
End-stage renal disease on hemodialysis
GI bleed
Hypertension
Hyperlipidemia
History of CVA with facial droop
Moderate mitral stenosis
Moderate aortic stenosis
Small pericardial effusion
History of prostate cancer status post XRT
Anemia
History of hypoglycemia
Hypothyroidism
Echo 08/30/23: EF 60%, dilated left and right atrium, moderate mitral stenosis, mild mitral regurgitation, mean mitral gradient 8, moderate aortic stenosis with mean aortic gradient 25 mmHg, mild TR PA pressure 48, small pericardial effusion, pleural
effusion, small PFO
Plan:
Cardiac status is relatively stable despite NV, VF arrest, etc. Not much ectopy, hemodynamics are acceptable.
Although proBNP is greater than 27,000, volume status looks reasonable. Presumably for dialysis tomorrow.
Await follow-up echocardiogram.
Currently all p.o. meds are on hold.
He had melena last night, hemoglobin is acceptable and improved from admission.
If efforts regarding care are to continue, would place NG tube, administer aspirin and beta-yolande, as well as statin. Although DAPT is technically indicated, given his anemia I would stick with aspirin alone at this time.
Further determinations regarding cardiac management and evaluation to be based upon his neurologic status, ECG, etc.
CC time 31 minutes
Progress Note - Risk Mgr
Subjective
Date of Service: September 18, 2023:
Unresponsive, on vent, receiving IV Protonix and acetaminophen, EEG in progress
Allergies: None
Home medications: Allopurinol 100 mg a day, amlodipine 5 mg daily, aspirin 81 mg a day, atorvastatin 40 mg a day, carvedilol 25 mg twice daily, clopidogrel 75 mg a day, levothyroxine 50 mcg daily, Renvela
Current meds: Aspirin 81 mg a day on hold, atorvastatin 40 mg a day, clopidogrel 75 mg a day, on hold, subcu heparin on hold, levothyroxine, cefepime, metoprolol tartrate 2.5 IV every 6, Keppra
PMH/PSH/FH/SH: Reviewed
ROS: Not obtainable
Hemoglobin 9.2, sodium 127, white count 17.7, creatinine 4.7, Hemoglobin was 6.9 on admission
Chest x-ray cardiomegaly, ECG sinus rhythm, nonspecific ST and T changes, LVH by Deejay
Objective
Labs:
09/18/23 03:20
09/18/23 03:20
Labs
Hgb 9.2 g/dL (13.0-18.0) L 09/18/23 03:20
Hct 26.7 % (39.0-52.0) L 09/18/23 03:20
Plt Count 199 10^3/uL (130-400) D 09/18/23 03:20
PT 20.9 Sec (11.4-14.6) H 09/16/23 21:03
INR 1.81 09/16/23 21:03
APTT 58.1 Sec (23.4-35.0) H 09/16/23 21:03
Sodium 127 mmol/L (135-145) L 09/18/23 03:20
Potassium 4.2 mmol/L (3.5-5.1) 09/18/23 03:20
BUN 47 mg/dl (9-20) H 09/18/23 03:20
Creatinine 4.7 mg/dL (0.7-1.3) H* 09/18/23 03:20
Glucose 72 mg/dl (70-99) 09/18/23 03:20
Troponins
09/16/23 09/17/23 09/17/23
21:03 09:37 15:48
Troponin I 7.070 H* 20.100 H* 21.300 H*
Vital Signs and I&O:
Vital Signs
Temp Pulse Resp BP Pulse Ox
37.2 C 72 20 117/42 100
09/18/23 07:53 09/18/23 07:00 09/18/23 07:00 09/18/23 06:11 09/18/23 07:56
Vital Signs
Temp Pulse Resp BP Pulse Ox
37.2 C 72 20 117/42 100
09/18/23 07:53 09/18/23 07:00 09/18/23 07:00 09/18/23 06:11 09/18/23 07:56
Intake & Output
09/16/23 09/17/23 09/18/23 09/19/23
07:59 07:59 07:59 07:59
Intake Total 1200 / 1200 1150 / 1160 1989
Output Total 0 / 0 0 / 0
Balance 1200 / 1200 1150 / 1160 1989
Physical Exam
Physical Exam
117/42, pulse 72, respiratory 20, sats 100, weight is 70.4 kg, Up 0.9 kg
Unresponsive, no distress, on ventilator, EEG in progress
Head neck exam tubes, EKG
Lungs relatively clear
Cardiac aortic stenosis murmur, MR murmur
Abdomen benign
Extremities without clubbing cyanosis with trace edema
Neuro unresponsive does not withdraw to pain
[2023-09-18 09:14] LABS: Glucose - Point of Care 70 mg/dl (70-99)
--- NOTE | 2023-09-18 09:24 | W.PN.GI.CBS2 ---
Addendum entered and electronically signed by RENÉE Orourke 09/18/23 12:00:
Discussed with patient daughter Dawn Dewitt, offered EGD. Given risk/benefits. She wishes not to pursue this. She is okay for Dobbhoff tube placement for meds. Discussed with RN and notified Cardiology Consultant. Continue Pantoprazole 40 mg IV BID. Okay for
ASA and Heparin sq. Nothing further to add from a GI perspective, we will be available as needed or by request.
Original Note:
Today's Communication / Plan
-
PPI
need decision regarding egd
Assessment / Plan
-
Pt is a 73yo with hx ESRD on HD, prostate CA with prior radiation 2013, CVA(now off Plavix since last year) , HTN, hyperlipidemia, hypothyroidism, DM no med, valvular disease with admission with weakness. Pt was noted with elevated BP and LE
swelling with concern for volume overload, hyponatremia, increased troponin with non ischemic injury, possible UTI and now noted overnight with rectal bleeding. hbg was 11-12 range now down to 9.7. In reviewing with daughter patient has had
several recent admission including admission 08/10/23 at [facility] then August at [facility] with extreme weakness. He was noted with new murmur last admission with concern for mitral and aortic stenosis. He now returns with similar symptoms and
continued weakness. No EGD in past but due to to complete in October with [facility] due to anemia. Colonoscopy [address] Nunn. No NSAID use
Over last 48 hrs:
- Vfib arrest 09/15 at 4pm with stable vital signs up to that time
- CT with likely metastatic cancer (renal source)
- EEG with possible anoxic brain injury
- GI bleeding the night of 09/14-09/15, responded to blood appropriately
PLAN:
- no current GI bleed
- vfib arrest likely multifactorial in cause
- continue PPI
- if team/family decides patient needs anticoagulation (high risk for rebleed) or needs evaluation of UGI tract then can do EGD but based on Vfib arrest with underlying and unknown cardiac abnormalities would need to do it before extubation and with
approval from cardiology.
Subjective
Subjective
Date of Service: September 18, 2023
Pt remains intubated, no GI bleeding
Objective
Data Reviewed
Laboratory Data:
Laboratory Results
09/18/23 03:20
09/18/23 03:20
Laboratory Results
PT 20.9 Sec (11.4-14.6) H 09/16/23 21:03
INR 1.81 09/16/23 21:03
APTT 58.1 Sec (23.4-35.0) H 09/16/23 21:03
Magnesium 2.1 mg/dl (1.6-2.3) 09/16/23 21:03
Magnesium Cancelled 09/16/23 21:03
Total Bilirubin 1.5 mg/dl (0.2-1.3) H 09/18/23 03:20
AST 216 U/L (17-59) H 09/18/23 03:20
ALT 63 U/L (0-50) H 09/18/23 03:20
Alkaline Phosphatase 203 U/L (38-126) H 09/18/23 03:20
Lipase 177 U/L (23-300) 09/13/23 12:48
Vital Signs and I&O:
Vital Signs
Temp Pulse Resp BP Pulse Ox
98.9 F 72 20 117/42 100
09/18/23 07:53 09/18/23 07:00 09/18/23 07:00 09/18/23 06:11 09/18/23 08:00
I&O
09/17/23 09/18/23 09/19/23
06:59 06:59 06:59
Intake Total 1140 / 1150 1914 170 / 170
Output Total 0 / 0 0 / 0
Balance 1140 / 1150 1914 170 / 170
Physical Exam
Physical Exam
HEENT: Other (intubated)
GI: Soft
[2023-09-18 10:23] LABS: Glucose - Point of Care 75 mg/dl (70-99)
--- NOTE | 2023-09-18 10:45 | W.PN.NEURO.1 ---
Today's Communication / Plan
-
Continue continuous EEG monitoring, monitor for clinical seizure activity
Enhance levetiracetam from 500 mg to 1000 mg every 12 hours IV, provide additoinal 2000 mg IV now
Provide Lorazepam 2 mg IV x 1 to determine if can resolve the malignant pattern
Plan for repeat brain imaging approximately 72 hours after cardiac arrest ideally brain MRI without contrast
Neuro Assessment/Plan
Assessment
Impressions
Cardiac arrest with ventricular fibrillation and PEA total code time approximately 15 minutes
Likely has sustained a degree of anoxic brain injury based on neurologic examination and continuous EEG
Continuous EEG is showing a malignant pattern in the form of frequent generalized periodic discharges
Initial CT head noncontrast did not show cerebral edema or loss of joseph-white matter differentiation but is not sensitive and is most likely too early to detect changes of anoxic for which MRI is more sensitive
Prognosis guarded although too early to be definitive at this point, possible better ability after 3 days of injury
Plan
Continue continuous EEG monitoring, monitor for clinical seizure activity
Enhance levetiracetam from 500 mg to 1000 mg every 12 hours IV, provide additoinal 2000 mg IV now
Provide Lorazepam 2 mg IV x 1 to determine if can resolve the malignant pattern
Plan for repeat brain imaging approximately 72 hours after cardiac arrest ideally brain MRI without contrast
Total Critical Care Time= 30 minutes.
The neurological system is affected and the action required by me to prevent further deterioration or potential was control over the item listed first in the Impressions and Recommendations section of this note.
I was present and personally examined the patient. I discussed patient care with other professional health care providers.
Will follow.
Subjective/Objective
Subjective Data
Date of Service: September 18, 2023
Patient unable to provide his own medical history
Objective Data
Vital Signs
Temp Pulse Resp BP Pulse Ox
37.2 C 69 7 117/42 100
09/18/23 07:53 09/18/23 09:00 09/18/23 09:00 09/18/23 06:11 09/18/23 09:00
Lab Results
09/18/23 03:20
09/18/23 03:20
PT 20.9 Sec (11.4-14.6) H 09/16/23 21:03
INR 1.81 09/16/23 21:03
APTT 58.1 Sec (23.4-35.0) H 09/16/23 21:03
Sodium 127 mmol/L (135-145) L 09/18/23 03:20
Potassium 4.2 mmol/L (3.5-5.1) 09/18/23 03:20
BUN 47 mg/dl (9-20) H 09/18/23 03:20
Glucose 72 mg/dl (70-99) 09/18/23 03:20
Calcium 9.5 mg/dl (8.4-10.2) 09/18/23 03:20
Olg-Y-Wlsqwdzamfz Pept > 86803 pg/ml 09/13/23 12:48
Vitamin B12 882 pg/ml (239-931) 09/16/23 08:20
Patient Allergies
No Known Allergies Allergy (Verified 09/13/23 11:45)
Review of Systems
-
Unable to obtain full review of systems at this time due to: Patient Intubation and Lethargy
History Source: Patient
All other systems: Reviewed and negative
Physical Exam
-
General: No Apparent Distress, Intubated and Appears Stated Age
Eyes: Round OU, [place] Conjunctivae and No Ptosis
HEENT: Anicteric and Moist Mucous Membranes
Neck: Full Range of Motion
Respiratory: No Dyspnea
Cardiac: No JVD
GI: Non-distended
Skin: Unremarkable
Extremities: No Clubbing, No Cyanosis and No Edema
Psych: Unable to Assess
Extended Neurological Exam
Mood & Affect: Unable to Assess
Attention Span & Concentration: Unable to Perform 2 Step Request and Other (Does not follow single step requests. Does lift limbs with painful stimulation in bilateral upper extremities and minimally in bilateral lower extremities); Negative Awake,
Alert, Interactive or Closes Eyes after Stimulation (Maintains eyes closed)
Memory: Unable to Assess
Tremor: Hand Tremor Absent and Head Tremor Absent
Involuntary Movement: None
Speech: Unable to Assess
Cranial Nerve II: Left Eye: Pupillary Reactivity Unremarkable, Pupillary Size Unremarkable and Unable to Assess Visual Feng
Cranial Nerve II: Right Eye: Pupillary Reactivity Unremarkable, Pupillary Size Unremarkable and Unable to Assess Visual Feng
Cranial Nerves III, IV, : Extraocular Movement: Other (Disconjugate gaze with roving eye movements bilaterally)
Cranial Nerve V: Facial Sensation: Unable to Assess
Cranial Nerve VII: Facial Symmetry: Normal Facial Symmetry
Cranial Nerve VIII: Hearing: Unable to Assess
Cranial Nerves IX, X: Palate Movement: Unable to Assess
Cranial Nerve XI: Shoulder Shrug: Unable to Assess
Cranial Nerve XII: Tongue Protusion: Unable to Assess
Muscle Strength, Overall: Negative Spontaneously Moves
Muscle Bulk & Tone: Bulk Unremarkable and Tone Unremarkable
Pronator Drift: Unable to Assess
Deep Tendon Reflexes: Absent Throughout
Cold Sensation: Unable to Assess
Vibration Sensation: Unable to Assess
Touch Sensation: Withdrawal to Pain
Coordination: Unable to Assess
Babinski Sign: Absent Bilaterally
Gait & Station: Unable to Assess
Data Reviewed
-
CT Head: Report Reviewed
Labs: Report Reviewed
Reviewed with: Physician and Nurse Practioner
Old Records: Summarized
Past History
Past History
ED Past Medical History: CVA, HTN, Hypercholesterolemia, NIDDM and Other (Prostate cancer)
Medications
-
Medications:
Generic Name Dose Route Start Last Admin
Trade Name Freq PRN Reason Stop Dose Admin
Acetaminophen 650 mg 09/13/23 17:27 09/16/23 15:01
Acetaminophen 325 Mg Tablet PO 10/11/23 17:26 650 mg
Q4HPRN PRN Administration
mild pain/ fever>100.5F
Aspirin 81 mg 09/14/23 12:00 09/15/23 11:27
Aspirin 81 Mg Chewable Tablet PO 10/12/23 11:59 81 mg
NOON MICAH Administration
Atorvastatin Calcium 40 mg 09/13/23 18:00 09/17/23 15:26
Atorvastatin (Lipitor) 40 Mg Tablet PO 10/11/23 17:59 Not Given
QPM MICAH
Cefepime HCl 1,000 mg 09/18/23 00:00 09/17/23 23:35
Cefepime Hcl 1,000 Mg/11.3 Ml Vial IV 1,000 mg
Q24H MICAH Administration
Cholecalciferol 25 mcg 09/14/23 12:00 09/17/23 12:14
Cholecalciferol (Vitamin D3) 25 Mcg Tablet (1,000 Units) PO 10/12/23 11:59 Not Given
NOON MICAH
Clopidogrel Bisulfate 75 mg 09/14/23 08:00 09/16/23 09:05
Clopidogrel 75 Mg Tablet PO 10/12/23 07:59 Not Given
DAILY MICAH
Dextrose 12.5 grams 09/13/23 17:27 09/18/23 05:47
Dextrose 50% (0.5 Grams/Ml) 50 Ml Syringe IV 10/11/23 17:26 12.5 grams
[id number] PRN Administration
hypoglycemia
Protocol
Fentanyl Citrate 50 mcg 09/16/23 17:22 09/16/23 22:00
Fentanyl (50 Mcg/Ml) 100 Mcg/2 Ml Ampul IV 09/30/23 17:21 50 mcg
[id number] PRN Administration
see protocol
Protocol
Glucagon 1 mg 09/13/23 17:27
Glucagon 1 Mg Vial IM 10/11/23 17:26
PRN PRN
hypoglycemia
Protocol
Heparin Sodium 5,000 units 09/14/23 00:00 09/15/23 16:06
Heparin 5,000 Units/Ml 1 Ml Vial SC 10/12/23 00:00 5,000 units
Q8 MICAH Administration
Pantoprazole Sodium 80 mg in 100 mls @ 10 mls/hr 09/16/23 17:14 09/18/23 07:57
Protonix IV 100 mls
Q10H MICAH Administration
8 MG/HR
Acetaminophen 1,000 mg in 100 mls @ 400 mls/hr 09/18/23 02:00 09/18/23 09:03
Ofirmev IV 09/19/23 01:59 100 mls
Q6H MICAH Administration
Protocol
Dextrose/Sodium Chloride 1,000 mls @ 75 mls/hr 09/17/23 15:00 09/18/23 05:50
D5/0.9% Sodium Chloride IV 09/18/23 14:59 1,000 mls
.[id number] MICAH Administration
Insulin Aspart 0 units 09/17/23 12:00 09/18/23 06:16
Insulin Aspart Low Resistance 300 Units/3 Ml Pen.Injctr SC 10/15/23 11:59 Not Given
Q6 MICAH
Protocol
Levetiracetam 500 mg 09/17/23 13:00 09/18/23 07:28
Levetiracetam (100 Mg/Ml) 500 Mg/5 Ml Vial IV 10/15/23 12:59 500 mg
Q12 MICAH Administration
Levothyroxine Sodium 75 mcg 09/16/23 17:09 09/18/23 07:33
Levothyroxine 50 Mcg Tablet PO 10/12/23 06:59 Not Given
DAILY@0700 MICAH
Metoprolol Tartrate 2.5 mg 09/17/23 12:00 09/18/23 06:11
Metoprolol 5 Mg/5 Ml Vial IV 10/15/23 11:59 2.5 mg
Q6 MICAH Administration
Sevelamer Carbonate 1,600 mg 09/13/23 22:00 09/18/23 07:34
Sevelamer Carbonate (Renvela) 800 Mg Tablet PO 10/11/23 21:59 Not Given
TID MICAH
Sodium Chloride 0 flush 09/13/23 18:00
Sodium Chloride 0.9% (Flush) Syringe IV 10/11/23 17:59
PER PROTOCOL MICAH
Sterile Water 10 ml 09/18/23 00:00 09/17/23 23:35
Sterile Water For Injection 10 Ml Vial IV 10/16/23 00:00 10 ml
Q24H MICAH Administration
Vitamin B Complex/Vit C/Folic Acid 1 capsule 09/14/23 12:00 09/17/23 12:14
Renal Cap (Nephrocap) Capsule PO 10/12/23 11:59 Not Given
NOON MICAH
--- NOTE | 2023-09-18 11:07 | W.PN.NEPH.PH ---
Today's Communication / Plan
-
HD plan tomorrow based on hemodynamics
Assessment/Plan
-
IMP:
Generalized weakness with ambulatory dysfunction edema
Peripheral edema
Hyponatremia
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
Left arm fistula 2019
Chronic anemia
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
Hx loop recorder 2022
HTN�benign
Hypothyroidism
Prostate cancer status post radiation in 2017
History of nephrolithiasis
Aortic stenosis
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
Plan:
Remains intubated
HD planned for TThS while inpatient
would avoid IVF in ESRD status, if needed low rate 40cc/hr for hypoglycemia
new metastatic disease on CT 09/16-GOC discussion with family per ICU
BP soft off meds, BB per cards
monitor h/h, on PPI
poor prognosis, EEG in progress
d/w ICU
critical care time 31 minutes
-
-
Date of Service: September 18, 2023
CC / HPI / ROS
-
Chief Complaint:
ESRD
History of Present Illness:
tolerated HD 09/15
VFib arrest 09/15 evening
intubated in ICU
critically ill in ICU
BP stable without pressors
on IV iron for KASSANDRA
on Abx for presumed UTI
hb stable 9.2
L acid high 4.7
trop peak 21
Review of Systems:
marysol, [id number]%
remains intubated
Labs
-
Labs:
WBC 17.7 10^3/uL (4.8-10.8) H 09/18/23 03:20
RBC 3.09 10^6/uL (4.70-6.10) L 09/18/23 03:20
Hgb 9.2 g/dL (13.0-18.0) L 09/18/23 03:20
Hct 26.7 % (39.0-52.0) L 09/18/23 03:20
Plt Count 199 10^3/uL (130-400) D 09/18/23 03:20
Sodium 127 mmol/L (135-145) L 09/18/23 03:20
Potassium 4.2 mmol/L (3.5-5.1) 09/18/23 03:20
Chloride 96 mmol/L (98-107) L 09/18/23 03:20
Carbon Dioxide 23 mmol/L (22-30) 09/18/23 03:20
BUN 47 mg/dl (9-20) H 09/18/23 03:20
Creatinine 4.7 mg/dL (0.7-1.3) H* 09/18/23 03:20
eGFR 12.33 09/18/23 03:20
Glucose 72 mg/dl (70-99) 09/18/23 03:20
Calcium 9.5 mg/dl (8.4-10.2) 09/18/23 03:20
Dfy-Y-Lftggzsegkv Pept > 06053 pg/ml 09/13/23 12:48
Albumin 2.2 g/dl (3.5-5.0) L 09/18/23 03:20
Physical Exam
-
Vital Signs:
Vital Signs
Temp Pulse Resp BP Pulse Ox
98.9 F 69 7 117/42 100
09/18/23 07:53 09/18/23 09:00 09/18/23 09:00 09/18/23 06:11 09/18/23 09:00
Cardiovascular:: Regular rate and rhythm
Respiratory:: Bilateral: Coarse
Lung Excursion:: Abnormal
Abdomen:: Nontender and Soft
Extremity Edema:: None: Bilateral: (trace)
Traylor Catheter: No
--- NOTE | 2023-09-18 11:10 | CM ---
Patient now in ICU. Patient plan is home with [facility], Patient not medically appropriate for discharge at this time. CM will continue to follow for discharge planning needs.
Plan; TBD
[2023-09-18 11:54] LABS: Glucose - Point of Care 74 mg/dl (70-99)
--- NOTE | 2023-09-18 12:19 | PTCARENOTE ---
Pt assessed.Pt grimaces and withdrawals to noxious stimuli.Continuous EEG is ongoing.IVF decreased to 50ml/hr as per MD order.Right Dobbhoff inserted as ordered.Pt's daughter at bedside.Plan of care discussed.
[2023-09-18] MEDS: KEPPRA 2000 MG IV (12:37)
[2023-09-18] MEDS: ATIVAN 2 MG IV (12:37)
[2023-09-18] MEDS: LOPRESSOR IV ×3 (12:51→23:25)
[2023-09-18] MEDS: LOW STRENGTH ASPIRIN 81 MG TUBE (14:26)
[2023-09-18] MEDS: NEPHROCAP PO (14:41)
--- NOTE | 2023-09-18 16:14 | PTCARENOTE ---
Pt assessed.No change in assessment noted.
[2023-09-18] MEDS: VITAMIN D3 (cholecalciferol) 25 MCG TUBE (16:21)
[2023-09-18] MEDS: HEPARIN 5000 UNITS SC ×2 (16:26→23:28)
--- NOTE | 2023-09-18 17:15 | PTCARENOTE ---
Arterial SBP consistently trending <90.Dr Burns made aware.Levophed initiated as ordered.
[2023-09-18 17:27] VITALS: BP_SYST 82
[2023-09-18] MEDS: LEVOPHED 250 IV (17:27)
[2023-09-18] MEDS: LIPITOR 40 MG TUBE (17:32)
[2023-09-18 17:34] LABS: Glucose - Point of Care 64 mg/dl (70-99)
[2023-09-18 17:57] LABS: Glucose - Point of Care 85 mg/dl (70-99)
--- NOTE | 2023-09-18 18:19 | W.PN.HOSP.TC ---
Today's Communication/Plan
-
NG feeding to start with Nephro at 20 cc/hr
Assessment / Plan
Assessment / Plan
Assessment and plan:
V. Fib arrest 09/16/23
- see code details
- could not pursue therapeutic hypothermia due to active GI bleed
- trop 20 - trend to peak
- likely primary cardiac event given initial rhythm V. Fib, but cannot pursue urgently needed cath with current mental status and GI bleed. Cannot heparinize.
- continue IV BB
- Echo: normal LV size/function. EF 60%, stage 2 DD, severely dilated RA, moderate MS, moderate
- [facility]
- remains intubated for VDRF but off pressors
- Neuro following for neuro-prognostication; on cEEG and Keppra. Monitor for signs of neurological recovery. eventual MRI
NG tube placed 09/17, X-Ray confirms tip in stomach
Acute GI bleed
Acute blood loss anemia, exacerbated by ASA/Plavix
- s/p 2 unit PRBCs
- continue PPI gtt
- EGD if in line with GOC
Leukocytosis
Septic shock suspected
- wean pressors
- empiric IV Cefepime started by ICU; follow cultures
Acute Volume Overload/Hypervolemic Hyponatremia
ESRD on HD //
- Nephrology following
TME on admission
- transient, related to hypoglycemia
- continue D5 fluids for hypoglycemia
- workup prior to Code was negative
large heterogeneous mass measuring approximately 8.6 x 7.7 cm arising from and/or completely replacing the left kidney
- with Associated heterogeneous nodular soft tissue enhancement. Numerous enhancing heterogeneous perinephric soft tissue nodules, adenopathy/metastatic disease. Vascular structures within the renal sinus is difficult to delineate, with probable
vascular invasion.
- On the right, advanced renal cortical atrophy. Hydronephrosis. Along the course of the mid ureter, there is a suggestion of soft tissue attenuation, which could suggest infection or neoplasm numerous right perinephric small soft tissue nodules are
noted, adenopathy versus metastatic disease.
- also Extensive confluent diffuse retroperitoneal adenopathy and mets to peritoneum, adrenal glands
- family aware of diagnosis of stage 4, presumed renal cancer
Generalized weakness related to all above diagnosis
Essential Hypertension
- holding oral BP meds with shock
Hyperlipidemia
- continue atorvastatin
Hypothyroidism
- continue levothyroxine
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
- holding Plavix
Hx Prostate Cancer s/p Radiation
DVT proph: SCDs with active GI bleed
Code Status: Full Code
Poor prognosis. ICU MD discussed with daughter, family considering withdrawal but wish to take it day by day and continue medical management for now.
Total Critical Care Time 45 minutes. I was immediately available to the patient and staff. I personally examined, reviewed labs, diagnostic images/reports, interpretations, treatment plans, discussed patient care with other providers and family
(met with dgt and son at bedside) or caregivers , entered orders as appropriate and documented the medical record.
Anticipated Discharge: > 48 hours
Subjective/Interval History
-
Date of Service: September 18, 2023
Remains VDRF
Objective Data
-
Vital Signs:
Vital Signs
Temp Pulse Resp BP Pulse Ox
98.9 F 75 22 90/36 100
09/18/23 07:53 09/18/23 18:00 09/18/23 18:00 09/18/23 12:51 09/18/23 18:00
I&O
09/17/23 09/18/23 09/19/23
06:59 06:59 06:59
Intake Total 1140 / 1150 1914 900 / 900
Output Total 0 / 0 0 / 0
Balance 1140 / 1150 1914 900 / 900
Review of Systems
-
History Source: Family (son and dgt) and Coordinated Provider
Constitutional: Denies Fever
Physical Exam
-
General: Intubated and Other (on cEEG)
HEENT: Normocephalic, Atraumatic and Other (NG tube just placed)
Respiratory: Negative Wheezes or Rales
Cardiac: Regular Rhythm and S1/S2
GI: Soft and Nondistended
Neuro: Sedated
Psych: Calm
--- NOTE | 2023-09-18 20:00 | PTCARENOTE ---
Rec'd pt w/ humberto at 3mm, sluggish, + cough, + corneal, no seizure activity noted, grimaces w/ suctioning, family at bedside & wish to make pt a dnr- Faith العراقي, [employer] aware, chart updated, dnr bracelet applied, Temp 100, SR, R rad sebastian w/ good wave
form, flushes well,zeroed, unable to obtain cuff bp, to keep MAP > 65- see flow sheet for titrations, levophed presently at 2 rachelle,weak distal pulses, + LE edema, skin warm/dry,left arm fistula w/ bruit/ thrill, prot gtt off per order, # 8 oral ett
25cm - moved to Left side, ac 14, tv 400, 5 peep, 40%, sat 100, scat rhonchi, decr in bases, thick belle secretions via ett, + bowel sounds, abd soft, R nares dobhoff- nepro started at 20ml/hr w/ 25ml/hr h20 flush per order, rectal trumpet to str
drainage bag draining burgundy liquid stool, oliguric, accu 56- 1/2 amp d50 given, repeat accu 91
[2023-09-18] MEDS: KEPPRA 1000 MG IV (20:13)
[2023-09-18 20:17] LABS: Glucose - Point of Care 56 mg/dl (70-99)
[2023-09-18 20:32] LABS: Glucose - Point of Care 91 mg/dl (70-99)
--- NOTE | 2023-09-18 21:55 | PTCARENOTE ---
accu 59- d50 iv given, repeat accu 89, B BHAVIN العراقي aware of 2 episodes of hypoglycemia this shift so far
2240- IVF changed to 500ml d10 at 30ml/hr & 1 liter nss at 20ml/hr
[2023-09-18 22:05] LABS: Glucose - Point of Care 59 mg/dl (70-99)
[2023-09-18 22:20] LABS: Glucose - Point of Care 89 mg/dl (70-99)
[2023-09-18] MEDS: D10W 500 IV (22:41)
[2023-09-18] MEDS: NSS 1000 IV (22:46)
[2023-09-18] MEDS: STERILE WATER FOR INJECTION 10 ML IV (23:27)
[2023-09-18] MEDS: MAXIPIME 1000 MG IV (23:27)
--- NOTE | 2023-09-18 23:40 | PTCARENOTE ---
sys reviewed, changes noted,accu 63- d50 IV given, repeat accu 104,
[2023-09-18 23:50] LABS: Glucose - Point of Care 63 mg/dl (70-99)
[2023-09-19 00:04] LABS: Glucose - Point of Care 104 mg/dl (70-99)
[2023-09-19 02:04] LABS: Glucose - Point of Care 78 mg/dl (70-99)
--- NOTE | 2023-09-19 04:00 | PTCARENOTE ---
sys reviewed, ett repos on R side at 25 cm, CHG bath done, linens changed
[2023-09-19 04:04] LABS: B.E. -7.6 mmol/L; HCO3 16.9 mmol/L (21-28); O2 Saturation % 99.9 % (94-98); PCO2 30 mmHg (35-48); PO2 197 mmHg (83-108); Potassium 4.2 mMOL/L (3.5-5.1); Sodium 127 mMOL/L (136-145); pH 7.36 (7.35-7.45)
[2023-09-19 04:07] LABS: Glucose - Point of Care 74 mg/dl (70-99)
[2023-09-19 04:08] LABS: O2 Therapy 40%
[2023-09-19 04:11] LABS: Hematocrit 28.7 % (39.0-52.0); Hemoglobin 9.2 g/dL (13.0-18.0); Mean Corp Hgb Conc. 32.1 g/dL (33.0-37.0); Mean Corpuscular Hgb 29.8 pg (27.0-31.0); Mean Corpuscular Volume 92.9 fL (80.0-94.0); Mean Platelet Volume 9.9 fL (7.4-10.4); Platelet Count 212 10^3/uL (130-400); Red Blood Cell Count 3.09 10^6/uL (4.70-6.10); Red Cell Dist. Width 15.8 % (11.5-14.5); White Blood Cell Count 20.4 10^3/uL (4.8-10.8)
[2023-09-19 05:11] LABS: Blood Urea Nitrogen 55 mg/dl (9-20); Calcium 9.9 mg/dl (8.4-10.2); Carbon Dioxide 17 mmol/L (22-30); Chloride 96 mmol/L (98-107); Estimated Creatinine Clearance 9 ml/min; Glucose 69 mg/dl (70-99); Potassium 4.2 mmol/L (3.5-5.1); Sodium 127 mmol/L (135-145); eGFR 8.68
[2023-09-19] MEDS: SYNTHROID 75 MCG TUBE (05:25)
[2023-09-19 05:30] VITALS: BMI 25.9
[2023-09-19] MEDS: LOPRESSOR IV ×2 (05:33→13:06)
[2023-09-19 06:05] LABS: Glucose - Point of Care 73 mg/dl (70-99)
--- NOTE | 2023-09-19 07:33 | EEGC.RPT ---
Continuous EEG Report
Recording
Start Date of Data Reviewed: 09/18/23
Start Time of Data Reviewed: 07:00
End Date of Data Reviewed: 09/19/23
End Time of Data Reviewed: 07:00
Type of EEG: Continuous
Done with Video Recording: Yes
Study Sequence: Continuation of ongoing Study
Electrocardiogram: Unremarkable
Report
CONTINUOUS EEG MONITORING INTERPRETATION:
Severely abnormal EEG for age due to:
Bihemispheric cortical dysfunction and continuous generalized periodic epileptiform activity.
CLINICAL CORRELATION:
This study was suggestive of status epilepticus, improved mildly from the prior day based on reduced frequency of GEPs and presence of slowed background.
Immediate clinical correlation is advised.
METHODS:
A 21 channel digitized electroencephalogram (EEG) was performed at the bedside in the intensive care unit. The 10/20 international system of electrode placement was used. ECG was monitored. Video was recorded. The [facility] system was
utilized.
ELECTROENCEPHALOGRAPHER IMPRESSION(S):
Quality
Good
Background
Maximum: Theta, demonstrated for periods lasting up to 2 hours
Amplitude: Medium
Anterior-posterior gradient: Intact when seen
Sleep
Drowsiness present with drop out of theta to delta frequencies
Abnormal EEG activity
Intermittent generalized frontally predominant high amplitude delta activity
09/18/2023 from 07:00 frontally predominant Generalizing Periodic Epileptiform Discharges (GPEDs) 3/second punctuated by 15 minutes of delta-theta background until 10:48 when greater duration of theta background found
16:07 recurrence of GPEDs 1/second, becoming again continuous starting 09/19/2023 01:48
ECG
Unremarkable
--- NOTE | 2023-09-19 08:00 | PTCARENOTE ---
Received pt with eyes closed.Eyes do not open to noxious stimuli.+ withdrawal to peripheral noxious stimuli bl upper and lower extremities.Continuos EEG ongoing.SR noted.D10,NSS and Levophed infusing via right DL PICC.Right A Line intact and
zeroed.#8 ETT to vent.POX 100%Suctioned for small amount thick belle secretions.Dobbhoff intact with tube feedings.Rectal trumpet draining small amount black burgundy stool.Anuric.Pt for HD as ordered.
--- NOTE | 2023-09-19 08:04 | W.PN.CARDCBS ---
Today's Communication / Plan
-
Wean Levophed
Continue neurologic evaluation for anoxic brain injury
Continue aspirin and metoprolol. With abnormal LFTs we will hold atorvastatin for next 24 hours
Echo with LVEF which has declined to 45% with moderate aortic and mitral stenosis
Hemoglobin stable at 9
Long-term prognosis appears to be poor if he does have anoxic brain injury
Continue dialysis per nephrology
Impression / Plan
-
Assessment:
Admitted 09/12 with weakness and fatigue
In hospital V-fib arrest s/p shock x2/CPR 09/15, peak troponin 21, proBNP greater than 27,000
End-stage renal disease on hemodialysis
Renal mass/possible advanced malignancy
GI bleed
Hypertension
Hyperlipidemia
History of CVA with facial droop
Moderate mitral stenosis
Moderate aortic stenosis
Small pericardial effusion
History of prostate cancer status post XRT
Anemia
History of hypoglycemia
Hypothyroidism
Echo 08/30/23: EF 60%, dilated left and right atrium, moderate mitral stenosis, mild mitral regurgitation, mean mitral gradient 8, moderate aortic stenosis with mean aortic gradient 25 mmHg, mild TR PA pressure 48, small pericardial effusion, pleural
effusion, small PFO
Echo 09/17; EF 45%, distal ant septal/apical hypokinesis, mod MS, mod , small pericardial effusion
Plan:
He remains ventilated and now having significant neurologic issues with likely anoxic brain injury. Continue treatments for seizures per neurology.
Continue aspirin, and metoprolol. Will switch metoprolol to via tube. Hopefully can wean off Levophed over next 12 to 24 hours.
LFTs are abnormal and stop statin.
Continue hemodialysis per nephrology if blood pressure tolerates
With GI bleed would not add Plavix. His echo was reviewed and his EF has dropped and he likely has significant LAD disease or multivessel disease.
Continue supportive care for now.
Hemoglobin overall stable at 9.
If he does recover he would need a cardiac catheterization, but for now we will await neurology recommendations as we would not proceed with this if he has anoxic brain injury.
CC time 31 minutes
Progress Note - Nailhead Puncher
Subjective
Date of Service: September 19, 2023
remains the same. NO new events
Objective
Labs:
09/19/23 03:57
09/19/23 03:57
Labs
Hgb 9.2 g/dL (13.0-18.0) L 09/19/23 03:57
Hct 28.7 % (39.0-52.0) L 09/19/23 03:57
Plt Count 212 10^3/uL (130-400) 09/19/23 03:57
PT 20.9 Sec (11.4-14.6) H 09/16/23 21:03
INR 1.81 09/16/23 21:03
APTT 58.1 Sec (23.4-35.0) H 09/16/23 21:03
Sodium 127 mmol/L (135-145) L 09/19/23 03:57
Potassium 4.2 mmol/L (3.5-5.1) 09/19/23 03:57
BUN 55 mg/dl (9-20) H 09/19/23 03:57
Creatinine 6.3 mg/dL (0.7-1.3) H* 09/19/23 03:57
Glucose 69 mg/dl (70-99) L 09/19/23 03:57
Troponins
09/16/23 09/17/23 09/17/23
21:03 09:37 15:48
Troponin I 7.070 H* 20.100 H* 21.300 H*
Vital Signs and I&O:
Vital Signs
Temp Pulse Resp BP Pulse Ox
98.8 F 74 22 90/36 100
09/19/23 03:07 09/19/23 06:00 09/19/23 06:00 09/18/23 12:51 09/19/23 06:00
Vital Signs
Temp Pulse Resp BP Pulse Ox
98.8 F 74 22 90/36 100
09/19/23 03:07 09/19/23 06:00 09/19/23 06:00 09/18/23 12:51 09/19/23 06:00
Intake & Output
09/17/23 09/18/23 09/19/23 09/20/23
06:59 06:59 06:59 06:59
Intake Total 1140 / 1150 1914 2287.5 / 2287.5
Output Total 0 / 0 0 / 0
Balance 1140 / 1150 1914 2287.5 / 2287.5
Physical Exam
Physical Exam
GEN: No distress, on vent
HEENT: supple, anicteric, mmm, ET tube
LUNGS: scatt rhonchi
CV: Reg, S1/S2, 1/6 syst LSB, no gallop
ABD: soft, BS+, NT/ND
EXT: No edema
NEURO: not following commands
SKIN: No rash
[2023-09-19] MEDS: NSS (PRESERVATIVE FREE) 10 ML IV (08:38)
[2023-09-19] MEDS: PROTONIX IV 40 MG IV (08:38)
[2023-09-19] MEDS: KEPPRA 1000 MG IV (08:38)
[2023-09-19] MEDS: HEPARIN 5000 UNITS SC (08:39)
[2023-09-19 08:40] LABS: Glucose - Point of Care 62 mg/dl (70-99)
--- NOTE | 2023-09-19 08:50 | PTCARENOTE ---
Initial blood glucose recheck 70 via fingerstick.Test repeated with arterial specimen with 90 result.
[2023-09-19 09:12] LABS: Glucose - Point of Care 71 mg/dl (70-99)
[2023-09-19] MEDS: VERSED 100 MG IV ×2 (09:28→23:05)
--- NOTE | 2023-09-19 10:53 | W.PN.NEPH.PH ---
Today's Communication / Plan
-
HD today
hold FWF in TFs
Assessment/Plan
-
IMP:
Generalized weakness with ambulatory dysfunction edema
Peripheral edema
Hyponatremia
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
Left arm fistula 2019
Chronic anemia
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
Hx loop recorder 2022
HTN�benign
Hypothyroidism
Prostate cancer status post radiation in 2017
History of nephrolithiasis
Aortic stenosis
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
Plan:
Remains intubated
HD planned for today
would avoid IVF in ESRD status, also on DHTfeeds
on D10 for hypoglycemia
pressors titrate to keep MAP>65
echo noted EF 45%, mod and MS
new metastatic disease on CT 09/16
monitor h/h, on PPI
poor prognosis, EEG in progress
d/w ICU
critical care time 31 minutes
-
-
Date of Service: September 19, 2023
CC / HPI / ROS
-
Chief Complaint:
ESRD
History of Present Illness:
tolerated HD 09/15
VFib arrest 09/15 evening
intubated in ICU
critically ill in ICU on pressors
hb stable 9.2
sodium low 127, bicarb 17
on D10 for hypoglycemia
Review of Systems:
remains intubated
Labs
-
Labs:
WBC 20.4 10^3/uL (4.8-10.8) H 09/19/23 03:57
RBC 3.09 10^6/uL (4.70-6.10) L 09/19/23 03:57
Hgb 9.2 g/dL (13.0-18.0) L 09/19/23 03:57
Hct 28.7 % (39.0-52.0) L 09/19/23 03:57
Plt Count 212 10^3/uL (130-400) 09/19/23 03:57
Sodium 127 mmol/L (135-145) L 09/19/23 03:57
Potassium 4.2 mmol/L (3.5-5.1) 09/19/23 03:57
Chloride 96 mmol/L (98-107) L 09/19/23 03:57
Carbon Dioxide 17 mmol/L (22-30) L 09/19/23 03:57
BUN 55 mg/dl (9-20) H 09/19/23 03:57
Creatinine 6.3 mg/dL (0.7-1.3) H* 09/19/23 03:57
eGFR 8.68 09/19/23 03:57
Glucose 69 mg/dl (70-99) L 09/19/23 03:57
Calcium 9.9 mg/dl (8.4-10.2) 09/19/23 03:57
Jme-C-Lchobqhtneo Pept > 82407 pg/ml 09/13/23 12:48
Albumin 2.2 g/dl (3.5-5.0) L 09/18/23 03:20
Physical Exam
-
Vital Signs:
Vital Signs
Temp Pulse Resp BP Pulse Ox
99.0 F 74 22 90/36 100
09/19/23 08:28 09/19/23 06:00 09/19/23 06:00 09/18/23 12:51 09/19/23 08:37
Cardiovascular:: Regular rate and rhythm
Lung Excursion:: Abnormal (decreased)
Abdomen:: Nontender and Soft
Extremity Edema:: None: Bilateral:
Traylor Catheter: No
--- NOTE | 2023-09-19 11:04 | W.PN.NEURO.1 ---
Today's Communication / Plan
-
Continue continuous EEG monitoring, monitor for clinical seizure activity
Continue levetiracetam 1000 mg every 12 hours IV
Initiate midazolam with titration based on EEG changes and hopes of continuing to eliminate generalizing epileptiform periodic discharges
Plan for repeat brain imaging approximately 72 hours after cardiac arrest ideally brain MRI without contrast
Neuro Assessment/Plan
Assessment
Impressions
Cardiac arrest with ventricular fibrillation and PEA total code time approximately 15 minutes
Likely has sustained a degree of anoxic brain injury based on neurologic examination and continuous EEG
Continuous EEG is showing a malignant pattern in the form of frequent generalized periodic discharges
Initial CT head noncontrast did not show cerebral edema or loss of joseph-white matter differentiation but is not sensitive and is most likely too early to detect changes of anoxic for which MRI is more sensitive
Prognosis guarded especially in light of the patient's newly discovered indeterminate cancer, possible better ability after 3 days of injury
Plan
Continue continuous EEG monitoring, monitor for clinical seizure activity
Continue levetiracetam 1000 mg every 12 hours IV
Initiate midazolam with titration based on EEG changes and hopes of continuing to eliminate generalizing epileptiform periodic discharges
Plan for repeat brain imaging approximately 72 hours after cardiac arrest ideally brain MRI without contrast
Total Critical Care Time= 30 minutes.
The neurological system is affected and the action required by me to prevent further deterioration or potential was control over the item listed first in the Impressions and Recommendations section of this note.
I was present and personally examined the patient. I discussed patient care with other professional health care providers.
Will follow.
Subjective/Objective
Subjective Data
Date of Service: September 19, 2023
Patient unable provide his own medical history
Objective Data
Vital Signs
Temp Pulse Resp BP Pulse Ox
37.2 C 77 23 90/36 100
09/19/23 08:28 09/19/23 10:00 09/19/23 10:00 09/18/23 12:51 09/19/23 10:00
Lab Results
09/19/23 03:57
09/19/23 03:57
PT 20.9 Sec (11.4-14.6) H 09/16/23 21:03
INR 1.81 09/16/23 21:03
APTT 58.1 Sec (23.4-35.0) H 09/16/23 21:03
Sodium 127 mmol/L (135-145) L 09/19/23 03:57
Potassium 4.2 mmol/L (3.5-5.1) 09/19/23 03:57
BUN 55 mg/dl (9-20) H 09/19/23 03:57
Glucose 69 mg/dl (70-99) L 09/19/23 03:57
Calcium 9.9 mg/dl (8.4-10.2) 09/19/23 03:57
Hqn-V-Ltfzwejcvee Pept > 79559 pg/ml 09/13/23 12:48
Vitamin B12 882 pg/ml (239-931) 09/16/23 08:20
Patient Allergies
No Known Allergies Allergy (Verified 09/13/23 11:45)
Review of Systems
-
Unable to obtain full review of systems at this time due to: Patient Intubation and Lethargy
History Source: Patient
All other systems: Reviewed and negative
Physical Exam
-
General: No Apparent Distress, Intubated and Appears Stated Age
Eyes: Round OU and Volente Conjunctivae
HEENT: Anicteric and Moist Mucous Membranes
Neck: Full Range of Motion
Respiratory: No Dyspnea
Cardiac: No JVD
GI: Non-distended
Skin: Unremarkable
Extremities: No Clubbing, No Cyanosis and No Edema
Psych: Unable to Assess
Extended Neurological Exam
Mood & Affect: Unable to Assess
Attention Span & Concentration: Unresponsive to Verbal Stimuli, Unresponsive to Physical Stimuli and Other (Does not follow single step requests. Does lift limbs with painful stimulation in bilateral upper extremities and minimally in bilateral
lower extremities); Negative Awake, Alert, Interactive or Closes Eyes after Stimulation (Maintains eyes closed)
Memory: Unable to Assess
Tremor: Hand Tremor Absent and Head Tremor Absent
Involuntary Movement: None
Speech: Unable to Assess
Cranial Nerve II: Left Eye: Pupillary Reactivity Unremarkable, Pupillary Size Unremarkable and Unable to Assess Visual Feng
Cranial Nerve II: Right Eye: Pupillary Reactivity Unremarkable, Pupillary Size Unremarkable and Unable to Assess Visual Feng
Cranial Nerves III, IV, : Extraocular Movement: Other (Disconjugate gaze with roving eye movements bilaterally)
Cranial Nerve V: Facial Sensation: Unable to Assess
Cranial Nerve VII: Facial Symmetry: Normal Facial Symmetry
Cranial Nerve VIII: Hearing: Unable to Assess
Cranial Nerves IX, X: Palate Movement: Unable to Assess
Cranial Nerve XI: Shoulder Shrug: Unable to Assess
Cranial Nerve XII: Tongue Protusion: Unable to Assess
Muscle Strength, Overall: Negative Spontaneously Moves
Muscle Bulk & Tone: Bulk Unremarkable and Tone Unremarkable
Pronator Drift: Unable to Assess
Deep Tendon Reflexes: Absent Throughout
Cold Sensation: Unable to Assess
Vibration Sensation: Unable to Assess
Touch Sensation: Withdrawal to Pain
Coordination: Unable to Assess
Babinski Sign: Absent Bilaterally
Gait & Station: Unable to Assess
Data Reviewed
-
EEG: Ordered and Report Reviewed
Labs: Report Reviewed
Reviewed with: Physician, Nurse and Nurse Practioner
Old Records: Summarized
Past History
Past History
ED Past Medical History: Cancer (Prostate cancer), CVA, HTN, Hypercholesterolemia and NIDDM
Medications
-
Medications:
Generic Name Dose Route Start Last Admin
Trade Name Freq PRN Reason Stop Dose Admin
Acetaminophen 650 mg 09/13/23 17:27 09/16/23 15:01
Acetaminophen 325 Mg Tablet PO 10/11/23 17:26 650 mg
Q4HPRN PRN Administration
mild pain/ fever>100.5F
Albumin Human 12.5 grams 09/19/23 08:00
Albumin 12.5 Grams/50 Ml Bag *For Hemodialysis* IV 09/19/23 23:59
HD-Q1HPRN PRN
sbp<100
Aspirin 81 mg 09/18/23 14:00 09/18/23 14:26
Aspirin 81 Mg Chewable Tablet TUBE 10/16/23 13:59 81 mg
NOON MICAH Administration
Cefepime HCl 1,000 mg 09/18/23 00:00 09/18/23 23:27
Cefepime Hcl 1,000 Mg/11.3 Ml Vial IV 1,000 mg
Q24H MICAH Administration
Cholecalciferol 25 mcg 09/18/23 13:45 09/18/23 16:21
Cholecalciferol (Vitamin D3) 25 Mcg Tablet (1,000 Units) TUBE 10/16/23 13:44 25 mcg
NOON MICAH Administration
Clopidogrel Bisulfate 75 mg 09/14/23 08:00 09/16/23 09:05
Clopidogrel 75 Mg Tablet PO 10/12/23 07:59 Not Given
DAILY MICAH
Dextrose 12.5 grams 09/13/23 17:27 09/18/23 23:40
Dextrose 50% (0.5 Grams/Ml) 50 Ml Syringe IV 10/11/23 17:26 12.5 grams
[id number] PRN Administration
hypoglycemia
Protocol
Glucagon 1 mg 09/13/23 17:27
Glucagon 1 Mg Vial IM 10/11/23 17:26
PRN PRN
hypoglycemia
Protocol
Heparin Sodium 5,000 units 09/14/23 00:00 09/19/23 08:39
Heparin 5,000 Units/Ml 1 Ml Vial SC 10/12/23 00:00 5,000 units
Q8 MICAH Administration
Norepinephrine Bitartrate 4 mg in 250 mls @ 0 mls/hr 09/18/23 17:20 09/18/23 17:27
Levophed IV 250 mls
PER PROTOCOL MICAH Administration
Protocol
Per Protocol
Dextrose 500 mls @ 30 mls/hr 09/18/23 23:00 09/18/23 22:41
D10w IV 500 mls
.[id number] MICAH Administration
Sodium Chloride 1,000 mls @ 20 mls/hr 09/18/23 22:30 09/18/23 22:46
Nss IV 1,000 mls
.Q24H MICAH Administration
Midazolam HCl 100 mg/ Dextrose 100 mls @ 18 mls/hr 09/19/23 11:00
IV
ORDERED RATE MICAH
Insulin Aspart 0 units 09/17/23 12:00 09/19/23 06:10
Insulin Aspart Low Resistance 300 Units/3 Ml Pen.Injctr SC 10/15/23 11:59 Not Given
Q6 MICAH
Protocol
Levetiracetam 1,000 mg 09/18/23 20:00 09/19/23 08:38
Levetiracetam (100 Mg/Ml) 500 Mg/5 Ml Vial IV 10/15/23 19:59 1,000 mg
Q12 MICAH Administration
Levothyroxine Sodium 75 mcg 09/19/23 07:00 09/19/23 05:25
Levothyroxine 50 Mcg Tablet TUBE 10/17/23 06:59 75 mcg
DAILY@0700 MICAH Administration
Mannitol 12.5 grams 09/19/23 08:00
Mannitol 25% (12.5 Grams/50 Ml) Vial IV 09/19/23 23:59
HD-Q1HPRN PRN
sbp<100
Metoprolol Tartrate 2.5 mg 09/17/23 12:00 09/19/23 05:33
Metoprolol 5 Mg/5 Ml Vial IV 10/15/23 11:59 Not Given
Q6 MICAH
Pantoprazole Sodium 40 mg 09/19/23 08:00 09/19/23 08:38
Pantoprazole Sodium 40 Mg/10 Ml Vial IV 10/17/23 07:59 40 mg
BID MICAH Administration
Sevelamer Carbonate 1,600 mg 09/13/23 22:00 09/18/23 07:34
Sevelamer Carbonate (Renvela) 800 Mg Tablet PO 10/11/23 21:59 Not Given
TID MICAH
Sodium Chloride 0 flush 09/13/23 18:00
Sodium Chloride 0.9% (Flush) Syringe IV 10/11/23 17:59
PER PROTOCOL MICAH
Sodium Chloride 10 ml 09/19/23 08:00 09/19/23 08:38
Sodium Chloride 0.9% (Preservative Free) 10 Ml Vial IV 10/17/23 07:59 10 ml
BID MICAH Administration
Sterile Water 10 ml 09/18/23 00:00 09/18/23 23:27
Sterile Water For Injection 10 Ml Vial IV 10/16/23 00:00 10 ml
Q24H MICAH Administration
Vitamin B Complex/Vit C/Folic Acid 1 capsule 09/14/23 12:00 09/18/23 14:41
Renal Cap (Nephrocap) Capsule PO 10/12/23 11:59 Not Given
NOON MICAH
--- NOTE | 2023-09-19 11:16 | PTCARENOTE ---
0915-Emesis noted.Tube feeding placed on hold.
0928-Midazolam initiated at 36 mg/hr as ordered.
1023-No reaction to pain noted.Dr Schrader at bedside.Midazolam decreased to 18 mg/hr as ordered.
[2023-09-19] MEDS: MANNITOL 12.5 GRAMS IV (11:45)
[2023-09-19] MEDS: FLEXBUMIN 25% FOR HEMODIALYSIS 12.5 GRAMS IV ×2 (11:56→13:14)
[2023-09-19] MEDS: RETACRIT 10000 UNITS IV (11:57)
[2023-09-19] MEDS: LEVOPHED 250 IV (12:02)
--- NOTE | 2023-09-19 12:10 | W.PN.NEPH.HD ---
Assessment
-
pt seen during HD
BP are low, UF lowered
titrate pressors to keep MAP>65
he is 6kg over EDW
May benefit from extra UF but Fio2 seem stable at 40%
DNR
Progress Note - Hemodialysis
-
Date of Service: September 19, 2023
Duration: 30 minutes and 3 hours
Potassium Bath: 3
Calcium Bath: 2.5
Opti-Dialyzer: 160
Ultrafiltration: Other (3kg)
Blood Flow: 400
Dialysate Flow: 600
Heparin: no
EPO: [id number]
--- NOTE | 2023-09-19 12:20 | PTCARENOTE ---
Pt assessed.No change in assessment noted.HD is ongoing.
[2023-09-19 13:01] LABS: Glucose - Point of Care 71 mg/dl (70-99)
--- NOTE | 2023-09-19 13:22 | W.PN.INTV ---
Today's Communication / Plan
Recommendations
Continue mechanical ventilation without change
Wean off Levophed
Continue to monitor for arrhythmias
Dialysis as needed
IV midazolam for seizures
Continue antibiotics
Not ready for spontaneous breathing trial.
Assessment
-
73-year-old AAM with a PMHx of ESRD on HD, hypertension, hyperlipidemia, valvular heart disease and history of CVA with residual left-sided facial droop presented with generalized weakness and fatigue. Patient was admitted to the hospitalist
service, was obtaining regularly scheduled dialysis and developed rectal bleeding on overnight from 09/14. There also was acute anemia. Blood transfusion started and then he suffered V-fib cardiac arrest. Patient was defibrillated for total
x 2, epi given and then ROSC obtained after approximately 15 minutes. Patient transferred to the ICU for further care and critical care services consulted for additional management/recommendations.
Impression:
#In-hospital cardiac arrest - rhythm was reportedly V-fib
#Acute respiratory failure with hypoxemia on mechanical ventilation
#Aspiration pneumonia/HAP (LLL)
#Hematochezia - differential includes brisk UGIB, versus diverticulosis versus angiodysplasia versus AVM
#Acute on chronic anemia - suspected to be acute blood loss from LGIB
#Coagulopathy with elevated INR
#Hypoglycemia
#Left kidney large heterogeneous mass measuring 8.6 x 7.7 cm with locoregional adenopathy and suspected vascular invasion and numerous intrahepatic lesions consistent with metastatic disease and peritoneal nodules
#Right pleural nodularity measuring 14 x 8 mm -DDx includes pleural plaque versus metastasis
#Subclinical hypothyroidism
#ESRD on HD
#Stage II diastolic dysfunction with increased filling pressures suggestive of acute HFpEF
#Valvular heart disease with moderate MS, moderate
#Small PFO seen on TTE from 08/30/2023
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
ESRD on HD
valvular heart disease
hypertension
hyperlipidemia
hypothyroidism
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
history of prostate cancer s/p XRT
Plan:
Remains critically ill.
Anoxic brain injury suspected.
This morning restarted on midazolam due to seizure activity: Unresponsive, no gag reflex.
Continue Keppra
Prior midazolam used to have a gag reflex.
Will continue to minimize sedation as able.
Discussed with neurology on 09/19/2023.
Continue with intermittent EEG monitoring.
Neurological evaluation once midazolam wears off.
-
s/p cardiac arrest
Cardiology on board;
Echo with LVEF which has declined to 45% with moderate aortic and mitral stenosis
Continue beta-blockers/aspirin no plans for any interventions at this point.
Hopefully can wean off Levophed later today.
-
Intubated post cardiac arrest
Mechanical ventilation settings reviewed.
Reviewed ABG 09/19/2023 : 7..
Pulmonary mechanics acceptable
FiO2 40%
Not ready for spontaneous breathing trial due to ongoing seizures and sedation.
Will continue to reassess daily.
Continue to minimize sedation as able.
-
Continue cefepime possible pneumonia. Will complete 5 to 7 days.
Sputum culture-with Tesha. Likely contaminant.
-
NPO for now, GIB noted
Gastroenterology no plans for EGD per family. Given his poor prognosis.
Follow H&H. Currently stable.
NG tube in place.
Continue PPI
ESRD on HD
Continue dialysis as per nephrology - last session on 09/15 --> his schedule is
Next session in AM
Volume overload continues but not impacting vent requirements
Diffuse metastatic disease suspected based on CT report, primary transitional cell vs RCC
History of prostate ca in past
Goal BG 140-180mg/dL and check BG q6hr
Hypoglycemia, continue hypoglycemia D5�NS infusion
DVT ppx: Heparin subcu.
Prognosis overall poor
DNR status noted
In this situation with highly likely anoxic brain injury and possible metastatic renal cell carcinoma, hospice would be appropriate. It will be an ongoing discussion with family. For now continue supportive care

Family Discussions
Vincent 09/18/23- I updated daughter today. She has been discussing with her siblings about her father's GOC. There is 4 children total. She wants to make sure they are all on the same page regarding code status. We discussed options regarding
tracheostomy vs withdrawal.
Lou 09/17/23- I discussed the critically ill state as well as the CT abdomen/pelvis findings concerning for metastatic disease with the patient's daughter, . She was very upset. She understands that if he does not wake up that he would not
have any quality of life, and then we would likely head towards withdrawal of care with transition to comfort at that time. She wants to continue full medical treatment for now, obtain EEG, see what could be reversed for him and take it day by day.
All of her questions were answered.
Diagnostic Data
CT Chest/Abd/Pelvis with IV Contrast 09-17-2023: Progressive large mass occupying and/or replacing the left kidney. 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 Probable invasion of the vascular structures in the left renal sinus.
Extensive perinephric, retroperitoneal, and peritoneal metastatic disease, as well has metastatic disease to the liver, adrenal glands, and spleen. Right renal cortical atrophy with mild hydronephrosis and suggestion of soft tissue thickening along
the mid ureter, raising the possibility of neoplasm. Small to moderate left pleural effusion. Adjacent consolidation, likely atelectasis. Cannot entirely exclude pneumonia. Small right pleural effusion. Right pleural nodularity measuring 14 x 8 mm
(image 28 series 201.). Possible nonspecific pleural plaque versus metastasis. Endotracheal tube in place distal tip approximately 1 cm above the duc. Cholelithiasis. Proximal common bile duct distention measuring 14 mm, appearing to taper to
normal caliber distally. Nonspecific. Recommend correlation with liver function tests. Incidental 5 mm cystic structure in the pancreatic body. Possible branch type intraductal papillary mucinous neoplasm.
CT Head without Contrast 09-17-2023: No acute intracranial abnormality noted. No acute intracranial hemorrhage. No mass effect. Stable moderate to advanced chronic microvascular white matter ischemic disease and small chronic infarcts.
CXR 09-16-2023: The endotracheal tube is well-positioned with the tip projecting 3 cm above the duc. Mild left basilar retrocardiac opacity suggesting atelectasis or small pleural fluid. No pneumothorax. Enlargement of the cardiac silhouette. A
loop recorder projects over the left anterior chest wall.
TTE 2023: Normal left ventricular size, wall thickness and systolic function. No regional wall motion abnormalities are seen. LV ejection fraction is 60% by Brock's method of discs. Stage II diastolic dysfunction suggestive of abnormal
relaxation and increased filling pressures. Upper normal right ventricular size and normal function. Indexed LA volume is severely abnormal (> 48 mL/m2).
Severely dilated right atrium. Moderate to severe mitral annular calcification. Thickened mitral valve leaflets with restricted opening. Moderate mitral stenosis. Peak/mean gradients across the mitral valve are 19/8 mmHg. Mild mitral
regurgitation. Calcified aortic valve. Trileaflet aortic valve. Thickened aortic valve with restricted leaflet motion. Moderate aortic stenosis. Peak/mean gradients across the aortic valve are 57/25 mmHg. Using an LVOT diameter of 2.1 cm, the VU
= 1.5cm2. Trace aortic regurgitation. Mild tricuspid regurgitation. Estimated pulmonary artery pressure of 48 mmHg,
assuming a right atrial pressure of 8 mmHg. Small pericardial effusion circumferentially. Pleural effusion present. Ascending aorta is borderline dilated at 3.7 cm. Color flow pattern suggestive of small PFO. No prior study available for
comparison.
-----
Critical Care time 32 mins -- The patient is admitted for acute critical illness for the treatment of vital organ failure and/or prevention of further life-threatening conditions. Total care includes time spent in review of history, physical exam,
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
Subjective Dataa
Subjective Data
Date of Service:
Date of Service: September 19, 2023
Chief Complaint: Hr Associate Follow Up
Subjective:
Remains critically ill, unresponsive, on mechanical ventilation.
On the last EEG still with seizure activity-started on high-dose midazolam.
Review of Systems
General: Unobtainable - Pat Unresp
Objective Data
Data Reviewed
Vital Signs / I&O / Oxygen:
Vital Signs
Temp Pulse Resp BP Pulse Ox
99.0 F 77 23 90/36 98
09/19/23 11:10 09/19/23 10:00 09/19/23 10:00 09/18/23 12:51 09/19/23 12:00
Intake and Output
09/18/23 09/19/23 09/20/23
06:59 06:59 06:59
Intake Total 1914 2287.5 / 2397.5 644 / 644
Output Total 0 / 0
Balance 1914 2287.5 / 2397.5 644 / 644
SaO2 [A/C] 98
SaO2 100
Physical Exam
General: Other (Intubated male and unresponsive off of sedation)
HEENT: Normocephalic and Anicteric
Cardiovascular: S1-S2, Regular Rhythm and Peripheral Edema (Negative)
Respiratory: Clear, Wheeze (Negative), Crackles (Negative), Non-Labored Respirations, ET Tube and Other (Mechanical breath sounds heard bilaterally)
GI: Soft, Non Distended and Non Tender
Neurology: Unresponsive and Other (Positive sign corneal reflex bilaterally; absent pupillary light reflex bilaterally; positive cough/gag reflex)
Skin: Warm and Dry
Labs/Micro/Reports
Lab Data
04/02/24 03:57
09/19/23 03:57
Laboratory Results
09/19/23
03:57
pH 7.36
pCO2 30 L
pO2 197 H
HCO3 16.9 L
O2 Delivery Level 40%
Microbiology
09/17/23 21:21 Endotracheal Respiratory Culture - Preliminary
Tesha albicans
09/17/23 21:21 Endotracheal Gram Stain - Preliminary
09/13/23 16:36 Blood/Venous Blood Culture - Final
No Growth - Final Report
09/13/23 16:30 Blood/Venous Blood Culture - Final
No Growth - Final Report
09/17/23 03:13 Nose Nasal Screen MRSA (PCR) - Final
MRSA not detected - performed by PCR methodology.
09/15/23 05:42 Urine Legionella Urinary Antigen - Final
Negative for Legionella pneumophila Serogroup 1 antigen.
A negative result does not rule out the possiblity of
Legionella infection due to other serogroups or species of
Legionella. Clinical correlation is recommended.
09/15/23 05:42 Urine Streptococcus pneumoniae Antigen (M - Final
Negative for Streptococcus pneumoniae antigen.
A negative result does not exclude infection with
Streptococcus pneumoniae. Clinical correlation is
recommended.
09/15/23 05:42 Urine Urine Culture - Final
No Significant Growth
--- NOTE | 2023-09-19 13:54 | W.PN.UPDATE ---
Update Note
Progress Note Update
More hypotensive after IV midazolam and hemodialysis.
Levophed at max doses.
Will add vasopressin.
Hopefully after dialysis can wean off.
[2023-09-19] MEDS: PITRESSIN 100 IV (13:57)
--- NOTE | 2023-09-19 14:33 | CM ---
CM following re: discharge planning.
Discussed in Rounds, reviewed pt's chart, met with pt. Per Rounds meeting, pt remains intubated, HD today, continue supportive care.
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 Does not drive. Daughter transports. Patient has been on HD x 3 years. He is on a 6am schedule with Fab[facility] at [facility] in [place], [facility] to transport.
PT and OT will re-evaluate the pt when clinically appropriate.
D/C plan: uncertain at this time and will depend on pt's progress.
CM will follow with discharge plan updates as hospitalization progresses
--- NOTE | 2023-09-19 15:59 | W.PN.UPDATE ---
Update Note
Progress Note Update
Dr. Subramanian updated daughter regarding patient is very poor condition. No meaningful recovery.
In the setting of possible metastatic untreatable renal cell carcinoma, hospice/comfort measures are advisable.
She has discussed with other family members and she agrees.
Once family members visited with him we will proceed with comfort measures and terminal extubation.
Will add morphine as needed for comfort.
[2023-09-19 16:23] LABS: Syphilis/T. pallidum Ab Reflex Positive (Negative)
--- NOTE | 2023-09-19 16:26 | PN.CDI ---
CDI
- -
CDI:
Physician Documentation Request
Admit Date: 09/13/23 16:22
Dear Doctor Angie,
Please review the following and provide your response in the progress notes.
Clinical Indicators:
Pt admitted with Hyponatremia/Vol overload/ESRD on HD .TME/UTI
Pt was found to be in septic shock on 09/15 /CPR/Cardiac Arrest /Acute Hypoxic Respiratory failure requiring intubation
Neurology note 09/18, ' Likely has sustained a degree of anoxic brain injury based on neurologic examination and continuous EEG...Unresponsive to Verbal Stimuli, Unresponsive to Physical Stimuli and Other (Does not follow single step requests....'
Intensivists note 09/18, ' Anoxic brain injury suspected...Unresponsive, no gag reflex....'
Please indicate which of the following is the specific condition being evaluated, monitored or treated.
Coma
Unconscious
Unresponsive only
Other
Use of terms such as suspected, likely, concern for, or probable (associated with a specific diagnosis that is being evaluated, monitored, or treated as if it exists) are acceptable and can be coded in the inpatient setting, when documented at the
time of discharge.
Thank you,
Emiliana Cano RN
CDI Specialist
[place] text
Please use your independent medical judgment in providing your response.
--- NOTE | 2023-09-19 16:37 | W.PN.HOSP.TC ---
Addendum entered and electronically signed by Clayton Adams MD 09/19/23 17:39:
Pt remains in a coma with no meaningful probability of recovery
Original Note:
Today's Communication/Plan
-
to have life support withdrawn
Assessment / Plan
Assessment / Plan
Assessment and plan:
V. Fib arrest 09/16/23
- see code details
- could not pursue therapeutic hypothermia due to active GI bleed
- trop 21.3
- likely primary cardiac event given initial rhythm V. Fib, but cannot pursue urgently needed cath with current mental status and GI bleed. Cannot heparinize.
- continue IV BB
- Echo: normal LV size/function. EF 60%, stage 2 DD, severely dilated RA, moderate MS, moderate
- [facility]
- remains intubated for VDRF on Levophed/Vasopressin
- Neuro following
NG tube placed 09/17, X-Ray confirms tip in stomach
Family met with Dr. Subramanian. Due to very poor condition, no meaningful recovery a decision was made to withdraw care.
Acute GI bleed
Acute blood loss anemia, exacerbated by ASA/Plavix
- s/p 2 unit PRBCs
- continue PPI gtt
Leukocytosis
Septic shock suspected
- wean pressors
- empiric IV Cefepime started by ICU; follow cultures
Acute Volume Overload/Hypervolemic Hyponatremia
ESRD on HD //
- Nephrology following
TME on admission
- transient, related to hypoglycemia
- continue D5 fluids for hypoglycemia
- workup prior to Code was negative
large heterogeneous mass measuring approximately 8.6 x 7.7 cm arising from and/or completely replacing the left kidney
- with Associated heterogeneous nodular soft tissue enhancement. Numerous enhancing heterogeneous perinephric soft tissue nodules, adenopathy/metastatic disease. Vascular structures within the renal sinus is difficult to delineate, with probable
vascular invasion.
- On the right, advanced renal cortical atrophy. Hydronephrosis. Along the course of the mid ureter, there is a suggestion of soft tissue attenuation, which could suggest infection or neoplasm numerous right perinephric small soft tissue nodules are
noted, adenopathy versus metastatic disease.
- also Extensive confluent diffuse retroperitoneal adenopathy and mets to peritoneum, adrenal glands
- family aware of diagnosis of stage 4, presumed renal cancer
Generalized weakness related to all above diagnosis
Essential Hypertension
- holding oral BP meds with shock
Hyperlipidemia
- continue atorvastatin
Hypothyroidism
- continue levothyroxine
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
- holding Plavix
Hx Prostate Cancer s/p Radiation
DVT proph: SCDs with active GI bleed
Code Status: Full Code
Poor prognosis. Met with son and dgt yesterday regarding prognosis. Awaiting arrival of family to withdraw care
Anticipated Discharge: Within 24 hours
Subjective/Interval History
-
Date of Service: September 19, 2023
Vomited with tube feeds at 20 cc/hr and was stopped
Objective Data
-
Labs:
Laboratory Results
09/19/23
03:57
Sodium 127 L
Potassium 4.2
Chloride 96 L
Carbon Dioxide 17 L
BUN 55 H
Creatinine 6.3 H*
Glucose 69 L
Calcium 9.9
Vital Signs:
Vital Signs
Temp Pulse Resp BP Pulse Ox
99.0 F 77 23 90/36 98
09/19/23 11:10 09/19/23 10:00 09/19/23 10:00 09/18/23 12:51 09/19/23 12:00
I&O
09/18/23 09/19/23 09/20/23
06:59 06:59 06:59
Intake Total 1914 2287.5 / 2397.5 644 / 644
Output Total 0 / 0
Balance 1914 1999 2287.5 / 2397.5 644 / 644
Review of Systems
-
History Source: Physician and Coordinated Provider
Physical Exam
-
General: Well Developed, Well Nourished and Other (VDRF, intubated)
Respiratory: Clear to Auscultation; Negative Wheezes, Rales or Rhonchi
Cardiac: Regular Rhythm and S1/S2
GI: Soft and Nondistended
Musculoskeletal: No Clubbing, No Cyanosis and No Edema
Neuro: Negative Awake
[2023-09-19] MEDS: VITAMIN D3 (cholecalciferol) TUBE (17:23)
[2023-09-19] MEDS: LOW STRENGTH ASPIRIN TUBE (17:23)
[2023-09-19] MEDS: D10W IV (17:24)
[2023-09-19 17:27] LABS: RPR, Progressive Non-Reactive (NonReactive)
[2023-09-19] MEDS: HEPARIN SC (17:50)
--- NOTE | 2023-09-19 18:03 | PTCARENOTE ---
Pt assessed.No change noted.Pt's extended family at bedside with experimental worker earlier.Pt is comfort care as per MD order.Pt's daughter states that there are family coming in tonight and they wish to wait until tomorrow to withdrawal to comfort care.
--- NOTE | 2023-09-19 18:57 | W.PN.UPDATE ---
Update Note
Progress Note Update
pt is comfort care currently
will s/o
--- NOTE | 2023-09-19 20:00 | PTCARENOTE ---
Pt received in bed. Pt unresponsive. Lungs diminished Pox 100%. ETT #8 @ 25 L lip. Pt suctioned for thick belle sputum. Dobhoff in place to L nare. TFs on hold d/t vomiting. D10 running. Rectal trumpet in place draining dark brown liquid stool. Zarina
zeroed. Levo and Versed infusing through R double lumen PICC. Mouth care provided.
[2023-09-19] MEDS: DEXTROSE 50% SYRINGE 12.5 GRAMS IV (23:38)
[2023-09-19 23:43] LABS: Glucose - Point of Care 56 mg/dl (70-99)
[2023-09-20] MEDS: LEVOPHED 250 IV ×3 (00:01→12:31)
[2023-09-20 00:02] VITALS: BP_SYST 118
[2023-09-20 00:21] LABS: Glucose - Point of Care 79 mg/dl (70-99)
[2023-09-20] MEDS: ZOFRAN 4 MG IV (01:20)
--- NOTE | 2023-09-20 01:20 | PTCARENOTE ---
Pt turned to be cleaned and was vomitting bile. Pt suctioned and Zofran given.
[2023-09-20] MEDS: DEXTROSE 50% SYRINGE 12.5 GRAMS IV ×5 (02:12→12:13)
[2023-09-20 02:18] LABS: Glucose - Point of Care 46 mg/dl (70-99)
[2023-09-20 02:57] LABS: Glucose - Point of Care 71 mg/dl (70-99)
[2023-09-20 03:33] VITALS: BP_SYST 125
[2023-09-20] MEDS: VERSED 100 MG IV ×2 (04:02→09:11)
[2023-09-20 05:07] LABS: Glucose - Point of Care 58 mg/dl (70-99)
--- NOTE | 2023-09-20 05:28 | PTCARENOTE ---
Pt cont w/ hypoglycemia. D10 increased to 50cc/hr. D50 given x 3.
[2023-09-20 05:31] LABS: Glucose - Point of Care 87 mg/dl (70-99)
[2023-09-20 06:00] VITALS: BMI 25.3
[2023-09-20 06:00] LABS: Glucose - Point of Care 72 mg/dl (70-99)
--- NOTE | 2023-09-20 07:22 | EEGC.RPT ---
Continuous EEG Report
Recording
Start Date of Data Reviewed: 09/19/23
Start Time of Data Reviewed: 07:00
End Date of Data Reviewed: 09/20/23
End Time of Data Reviewed: 06:30
Type of EEG: Continuous
Done with Video Recording: Yes
Study Sequence: Continuation of ongoing Study
Electrocardiogram: Unremarkable
Report
CONTINUOUS EEG MONITORING INTERPRETATION:
Severely abnormal EEG for age due to:
Bihemispheric cortical dysfunction and generalized periodic epileptiform activity leading to burst-suppression pattern after 09:30.
CLINICAL CORRELATION:
This study was suggestive of status epilepticus, improved mildly from the prior day based on reduced frequency of GEPs and presence of slowed background.
Immediate clinical correlation is advised.
METHODS:
A 21 channel digitized electroencephalogram (EEG) was performed at the bedside in the intensive care unit. The 10/20 international system of electrode placement was used. ECG was monitored. Video was recorded. The [employer] system was
utilized.
ELECTROENCEPHALOGRAPHER IMPRESSION(S):
Quality
Good
Background
Maximum: Theta in burst-suppression, rare
Amplitude: Medium
Anterior-posterior gradient: Intact when seen
Sleep
Not demonstrated
Abnormal EEG activity
Intermittent frontally predominant high-amplitude Generalizing Periodic Epileptiform Discharges (GPEDs) ended at 09:30.
ECG
Unremarkable
--- NOTE | 2023-09-20 07:40 | PTCARENOTE ---
As the plan is Terminal extubation at some point today, [facility] notified. Per [facility] staff- pt not suitable for organ donation but to contact them when he expires
[2023-09-20 08:14] LABS: Glucose - Point of Care 53 mg/dl (70-99)
--- NOTE | 2023-09-20 08:18 | W.PN.HOSP.TC ---
Today's Communication/Plan
-
continue supportive care with planned terminal extubation
Assessment / Plan
Assessment / Plan
Assessment and plan:
V. Fib arrest 09/16/23
- see code details
- could not pursue therapeutic hypothermia due to active GI bleed
- trop 21.3
- likely primary cardiac event given initial rhythm V. Fib, but cannot pursue urgently needed cath with current mental status and GI bleed. Cannot heparinize.
- continue IV BB
- Echo: normal LV size/function. EF 60%, stage 2 DD, severely dilated RA, moderate MS, moderate
- [facility]
- remains intubated for VDRF on Levophed/off Vasopressin
- Neuro following
NG tube placed 09/17, X-Ray confirms tip in stomach
Family met with Dr. Subramanian. Due to very poor condition, no meaningful recovery a decision was made to withdraw care. At this time, pt remains intubated and on pressors. As per KENYETTA Connor, family to get together later this morning with potential
terminal extubation to follow
Acute GI bleed
Acute blood loss anemia, exacerbated by ASA/Plavix
- s/p 2 unit PRBCs
- continue PPI gtt
Leukocytosis
Septic shock suspected
- wean pressors
- empiric IV Cefepime started by ICU; follow cultures
Acute Volume Overload/Hypervolemic Hyponatremia
ESRD on HD //
- Nephrology following
TME on admission
- transient, related to hypoglycemia
- continue D10W fluids for hypoglycemia
- workup prior to Code was negative
large heterogeneous mass measuring approximately 8.6 x 7.7 cm arising from and/or completely replacing the left kidney
- with Associated heterogeneous nodular soft tissue enhancement. Numerous enhancing heterogeneous perinephric soft tissue nodules, adenopathy/metastatic disease. Vascular structures within the renal sinus is difficult to delineate, with probable
vascular invasion.
- On the right, advanced renal cortical atrophy. Hydronephrosis. Along the course of the mid ureter, there is a suggestion of soft tissue attenuation, which could suggest infection or neoplasm numerous right perinephric small soft tissue nodules are
noted, adenopathy versus metastatic disease.
- also Extensive confluent diffuse retroperitoneal adenopathy and mets to peritoneum, adrenal glands
- family aware of diagnosis of stage 4, presumed renal cancer
Generalized weakness related to all above diagnosis
Essential Hypertension
- holding oral BP meds with shock
Hyperlipidemia
- continue atorvastatin
Hypothyroidism
- continue levothyroxine
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
- holding Plavix
Hx Prostate Cancer s/p Radiation
DVT proph: SCDs with active GI bleed
Code Status: DNR with potential withdrawal of care
Poor prognosis. Met with son and dgt 09/17 regarding prognosis. Awaiting arrival of family to withdraw care
Reviewed plans with KENYETTA Connor and Dr. Subramanian
Anticipated Discharge: Within 24 hours
Subjective/Interval History
-
Date of Service: September 20, 2023
Pt remains unresponsive, VDRF, on Levophed. Did not tolerate NG feeds, resulted in vomiting
Objective Data
-
Vital Signs:
Vital Signs
Temp Pulse Resp BP Pulse Ox
100.5 F H 84 23 90/36 100
09/20/23 07:37 09/20/23 00:00 09/20/23 00:00 09/18/23 12:51 09/20/23 04:13
I&O
09/19/23 09/20/23 09/21/23
06:59 06:59 06:59
Intake Total 2287.5 / 2397.5
Balance 2287.5 / 2397.5
Review of Systems
-
History Source: Physician (reviewed with Dr. Subramanian) and Coordinated Provider
Physical Exam
-
General: Well Developed, Well Nourished and Intubated
HEENT: Normocephalic and Atraumatic
Respiratory: Clear to Auscultation; Negative Wheezes, Rales or Rhonchi
Cardiac: Regular Rhythm, S1/S2 and Murmur (3/6 systolic m)
GI: Soft and Normal Bowel Sounds
Skin: Warm and Dry
Neuro: Negative Awake
[2023-09-20 08:42] LABS: Glucose - Point of Care 95 mg/dl (70-99)
--- NOTE | 2023-09-20 09:00 | PTCARENOTE ---
Rec' pt at 0800 resting in bed Rec'd pt sedated on Versed gtt at 18 mg/hr. No seizure activity noted. Pt had been on continuous EEG but obstetrical tech in and per neurology removed the cont. EEG. Pt unresponsive to verbal or tactile stimuli. Pupils are
very sluggish at 2mm. No gag noted but weak cough to suctioning. No movement of extremities to nailbed pressure. Skin is dk wm and dry Temp 100.6 rectally. Respirs are intact on the vent. #8 Ett repositioned at the 25 cm ruben R side of the mouth.
Suctioned for scant amt of yellowish/green secretions. Subglottic suctioin port with yellowish/green secretions. Reported that pt had vomited during the night. Vent AC 14, TV 400, peep 5. Fio2 40%. Pt adding little to no volume but does add rate
into the 24-26 range. BS are overall clear- decreased . Sats are 100%. Monitor SR with 1st 'avb-RI. 23. Rec'd pt on IV Levophed at 6 mcg will wean as tolerated keeping SYST BP >90. + pulses. R radial A line site wnl. Unable to get cuff BP so will
use A line. Zeroed and recalibrated- waveform as documented. Site wnl. Edema as noted. ABd is round and soft with hypoactive BS. R nare feeding tube clamped. Will keep tube feeds off currently. Rectal trumpet in place for loose brown stool. Pt is
anuric. IV D10 infusing at 50 ml/hr as well as Levophed and Versed infusing via R arm DL picc site wnl. BS at 0802 this am was 53- Treated with 12.5 gms of D50 at 0812 and repeat glucose 95. Pt turned and repositioned. Awaiting family as plan from
yesterday had been terminal extubation and comfort measures. Skin and mouth care given.
[2023-09-20 09:10] VITALS: BP_SYST 123
--- NOTE | 2023-09-20 09:24 | W.PN.CARDCBS ---
Today's Communication / Plan
-
Family likely considering withdrawal of care and terminal extubation
Continue supportive care for now
Impression / Plan
-
Assessment:
Admitted 09/12 with weakness and fatigue
In hospital V-fib arrest s/p shock x2/CPR 09/15, peak troponin 21, proBNP greater than 27,000
End-stage renal disease on hemodialysis
Renal mass/possible advanced malignancy
GI bleed
Hypertension
Hyperlipidemia
History of CVA with facial droop
Moderate mitral stenosis
Moderate aortic stenosis
Small pericardial effusion
History of prostate cancer status post XRT
Anemia
History of hypoglycemia
Hypothyroidism
Echo 08/30/23: EF 60%, dilated left and right atrium, moderate mitral stenosis, mild mitral regurgitation, mean mitral gradient 8, moderate aortic stenosis with mean aortic gradient 25 mmHg, mild TR PA pressure 48, small pericardial effusion, pleural
effusion, small PFO
Echo 09/17; EF 45%, distal ant septal/apical hypokinesis, mod MS, mod , small pericardial effusion
Plan:
He remains ventilated and now having significant neurologic issues with likely anoxic brain injury. Family now strongly considering withdrawal of care due to brain recovery very unlikely
Continue aspirin, and metoprolol. Continue Levophed for now.
With GI bleed would not add Plavix. His echo was reviewed and his EF has dropped and he likely has significant LAD disease or multivessel disease.
Continue supportive care for now.
Hemoglobin overall stable at 9.
Will sign off if made comfort care
Progress Note - Communications Consultant
Subjective
Date of Service: September 20, 2023
Remains unresponsive and on ventilator
Objective
Labs:
09/19/23 03:57
09/19/23 03:57
Labs
Hgb 9.2 g/dL (13.0-18.0) L 09/19/23 03:57
Hct 28.7 % (39.0-52.0) L 09/19/23 03:57
Plt Count 212 10^3/uL (130-400) 09/19/23 03:57
PT 20.9 Sec (11.4-14.6) H 09/16/23 21:03
INR 1.81 09/16/23 21:03
APTT 58.1 Sec (23.4-35.0) H 09/16/23 21:03
Sodium 127 mmol/L (135-145) L 09/19/23 03:57
Potassium 4.2 mmol/L (3.5-5.1) 09/19/23 03:57
BUN 55 mg/dl (9-20) H 09/19/23 03:57
Creatinine 6.3 mg/dL (0.7-1.3) H* 09/19/23 03:57
Glucose 69 mg/dl (70-99) L 09/19/23 03:57
Troponins
09/17/23 09/17/23
09:37 15:48
Troponin I 20.100 H* 21.300 H*
Vital Signs and I&O:
Vital Signs
Temp Pulse Resp BP Pulse Ox
100.5 F H 84 23 90/36 100
09/20/23 07:37 09/20/23 00:00 09/20/23 00:00 09/18/23 12:51 09/20/23 09:03
Vital Signs
Temp Pulse Resp BP Pulse Ox
100.5 F H 84 23 90/36 100
09/20/23 07:37 09/20/23 00:00 09/20/23 00:00 09/18/23 12:51 09/20/23 09:03
Intake & Output
09/18/23 09/19/23 09/20/23 09/21/23
06:59 06:59 06:59 06:59
Intake Total 1914 2287.5 / 2397.5 2046.4 / 6.4
Output Total 0 / 0
Balance 1914 2287.5 / 2397.5 6.4 / 2045.4
Physical Exam
Physical Exam
GEN: No distress, unresponsive
HEENT: supple, anicteric, mmm
LUNGS: scatt rhonchi
CV: Reg, S1/S2, 1/6 syst LSB, no gallop
ABD: soft, BS+, NT/ND
EXT: No edema
NEURO: Unresponsive
SKIN: No rash
[2023-09-20 10:00] VITALS: BP_SYST 111
[2023-09-20 10:30] VITALS: BP_SYST 110
[2023-09-20 10:38] LABS: Glucose - Point of Care 59 mg/dl (70-99)
--- NOTE | 2023-09-20 10:45 | PTCARENOTE ---
Again hypoglycemic at 1030. 12.5 gms of D50 given. with Blood sugar back up to 82. Pt remains unresponsive- sedated on Versed at 18 mg/hr. No other changes in assessment. Awaiting family.
[2023-09-20 11:02] LABS: Glucose - Point of Care 82 mg/dl (70-99)
[2023-09-20 12:05] VITALS: BP_SYST 94
--- NOTE | 2023-09-20 12:19 | W.PN.INTV ---
Today's Communication / Plan
Recommendations
Discontinue vasopressors
Continue mechanical ventilation without change
Continue midazolam drip
no further dialysis.
Waiting for family for terminal extubation.
Assessment
-
73-year-old AAM with a PMHx of ESRD on HD, hypertension, hyperlipidemia, valvular heart disease and history of CVA with residual left-sided facial droop presented with generalized weakness and fatigue. Patient was admitted to the hospitalist
service, was obtaining regularly scheduled dialysis and developed rectal bleeding on overnight from 09/14. There also was acute anemia. Blood transfusion started and then he suffered V-fib cardiac arrest. Patient was defibrillated for total
x 2, epi given and then ROSC obtained after approximately 15 minutes. Patient transferred to the ICU for further care and critical care services consulted for additional management/recommendations.
Impression:
#In-hospital cardiac arrest - rhythm was reportedly V-fib
#Acute respiratory failure with hypoxemia on mechanical ventilation
#Aspiration pneumonia/HAP (LLL)
#Hematochezia - differential includes brisk UGIB, versus diverticulosis versus angiodysplasia versus AVM
#Acute on chronic anemia - suspected to be acute blood loss from LGIB
#Coagulopathy with elevated INR
#Hypoglycemia
#Left kidney large heterogeneous mass measuring 8.6 x 7.7 cm with locoregional adenopathy and suspected vascular invasion and numerous intrahepatic lesions consistent with metastatic disease and peritoneal nodules
#Right pleural nodularity measuring 14 x 8 mm -DDx includes pleural plaque versus metastasis
#Subclinical hypothyroidism
#ESRD on HD
#Stage II diastolic dysfunction with increased filling pressures suggestive of acute HFpEF
#Valvular heart disease with moderate MS, moderate
#Small PFO seen on TTE from 08/30/2023
Chronic medical conditions SECTION CHIEF:
ESRD on HD
valvular heart disease
hypertension
hyperlipidemia
hypothyroidism
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
history of prostate cancer s/p XRT
Plan:
Unfortunately, patient has not meaningful recovery.
I had an extensive discussion with his daughter on 09/19/2023.
Plan was to de-escalate care and eventually proceed to comfort with terminal extubation.
Most of the medication to be discontinued.
At this point discontinue Levophed
No additional dialysis will be offered.
Okay to continue low rate D10. Would not treat further hypoglycemia.
-
Continue midazolam drip
Morphine as needed will be provided
Ativan as needed will be provided
At this point, we are waiting for family to proceed with extubation.
-
Mechanical ventilation will continue for now without change.
-
Continue supportive care, focus on comfort. Currently patient appears comfortable.
Case has been discussed with primary team and nursing.

Family Discussions
Vincent 09/18/23- I updated daughter today. She has been discussing with her siblings about her father's GOC. There is 4 children total. She wants to make sure they are all on the same page regarding code status. We discussed options regarding
tracheostomy vs withdrawal.
Carmine 09/17/23- I discussed the critically ill state as well as the CT abdomen/pelvis findings concerning for metastatic disease with the patient's daughter, . She was very upset. She understands that if he does not wake up that he would not
have any quality of life, and then we would likely head towards withdrawal of care with transition to comfort at that time. She wants to continue full medical treatment for now, obtain EEG, see what could be reversed for him and take it day by day.
All of her questions were answered.
Diagnostic Data
CT Chest/Abd/Pelvis with IV Contrast 09-17-2023: Progressive large mass occupying and/or replacing the left kidney. 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 Probable invasion of the vascular structures in the left renal sinus.
Extensive perinephric, retroperitoneal, and peritoneal metastatic disease, as well has metastatic disease to the liver, adrenal glands, and spleen. Right renal cortical atrophy with mild hydronephrosis and suggestion of soft tissue thickening along
the mid ureter, raising the possibility of neoplasm. Small to moderate left pleural effusion. Adjacent consolidation, likely atelectasis. Cannot entirely exclude pneumonia. Small right pleural effusion. Right pleural nodularity measuring 14 x 8 mm
(image 28 series 201.). Possible nonspecific pleural plaque versus metastasis. Endotracheal tube in place distal tip approximately 1 cm above the duc. Cholelithiasis. Proximal common bile duct distention measuring 14 mm, appearing to taper to
normal caliber distally. Nonspecific. Recommend correlation with liver function tests. Incidental 5 mm cystic structure in the pancreatic body. Possible branch type intraductal papillary mucinous neoplasm.
CT Head without Contrast 09-17-2023: No acute intracranial abnormality noted. No acute intracranial hemorrhage. No mass effect. Stable moderate to advanced chronic microvascular white matter ischemic disease and small chronic infarcts.
CXR 09-16-2023: The endotracheal tube is well-positioned with the tip projecting 3 cm above the duc. Mild left basilar retrocardiac opacity suggesting atelectasis or small pleural fluid. No pneumothorax. Enlargement of the cardiac silhouette. A
loop recorder projects over the left anterior chest wall.
TTE 2023: Normal left ventricular size, wall thickness and systolic function. No regional wall motion abnormalities are seen. LV ejection fraction is 60% by Brock's method of discs. Stage II diastolic dysfunction suggestive of abnormal
relaxation and increased filling pressures. Upper normal right ventricular size and normal function. Indexed LA volume is severely abnormal (> 48 mL/m2).
Severely dilated right atrium. Moderate to severe mitral annular calcification. Thickened mitral valve leaflets with restricted opening. Moderate mitral stenosis. Peak/mean gradients across the mitral valve are 19/8 mmHg. Mild mitral
regurgitation. Calcified aortic valve. Trileaflet aortic valve. Thickened aortic valve with restricted leaflet motion. Moderate aortic stenosis. Peak/mean gradients across the aortic valve are 57/25 mmHg. Using an LVOT diameter of 2.1 cm, the VU
= 1.5cm2. Trace aortic regurgitation. Mild tricuspid regurgitation. Estimated pulmonary artery pressure of 48 mmHg,
assuming a right atrial pressure of 8 mmHg. Small pericardial effusion circumferentially. Pleural effusion present. Ascending aorta is borderline dilated at 3.7 cm. Color flow pattern suggestive of small PFO. No prior study available for
comparison.
-----
Critical Care time 31 mins -- The patient is admitted for acute critical illness for the treatment of vital organ failure and/or prevention of further life-threatening conditions. Total care includes time spent in review of history, physical exam,
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
Subjective Dataa
Subjective Data
Date of Service:
Date of Service: September 20, 2023
Chief Complaint: Technical Writing Lead/Mgr Follow Up
Subjective:
Unresponsive, on mechanical ventilation.
Now mostly on comfort measures. Waiting family for terminal extubation.
Review of Systems
General: Unobtainable - Pat Unresp
Objective Data
Data Reviewed
Vital Signs / I&O / Oxygen:
Vital Signs
Temp Pulse Resp BP Pulse Ox
100.8 F H 80 26 90/36 100
09/20/23 11:19 09/20/23 08:00 09/20/23 08:00 09/18/23 12:51 09/20/23 10:58
Intake and Output
09/19/23 09/20/23 09/21/23
06:59 06:59 06:59
Intake Total 2287.5 / 2397.5 2046.4 / 2136.9 380.1 / 380.1
Balance 2287.5 / 2397.5 2046.4 / 2136.9 380.1 / 380.1
SaO2 [A/C] 100
SaO2 100
Physical Exam
General: Other (Intubated male and unresponsive off of sedation)
HEENT: Normocephalic and Anicteric
Cardiovascular: S1-S2, Regular Rhythm and Peripheral Edema (Negative)
Respiratory: Clear, Wheeze (Negative), Crackles (Negative), Non-Labored Respirations, ET Tube and Other (Mechanical breath sounds heard bilaterally)
GI: Soft, Non Distended and Non Tender
Neurology: Unresponsive and Other (Positive sign corneal reflex bilaterally; absent pupillary light reflex bilaterally; positive cough/gag reflex)
Skin: Warm and Dry
Labs/Micro/Reports
Lab Data
09/19/23 03:57
09/19/23 03:57
Microbiology
09/17/23 21:21 Endotracheal Respiratory Culture - Final
Tesha albicans
09/17/23 21:21 Endotracheal Gram Stain - Final
09/13/23 16:36 Blood/Venous Blood Culture - Final
No Growth - Final Report
09/13/23 16:30 Blood/Venous Blood Culture - Final
No Growth - Final Report
09/17/23 03:13 Nose Nasal Screen MRSA (PCR) - Final
MRSA not detected - performed by PCR methodology.
[2023-09-20 12:21] LABS: Glucose - Point of Care 58 mg/dl (70-99)
--- NOTE | 2023-09-20 13:00 | PTCARENOTE ---
Assessment is unchanged. Very very minimal gag reflex and + cough. Remains sedated on Versed gtt. Accucheck at 1209 resulted as 58- Medicated with D50 12.[address] Subramanian updated on pt and orders obtained to DC accuchecks and glucose treatment
as the decision was made yesterday to transition pt to comfort. Pt also down to 2 mcg of Levophed -initally Dr. Subramanian ordered to turn the infusion off-however spoke with pts daughter and she will be in around 1400 and her sister around 1700.
Stated once her sister leaves then the ETT can be removed and be fully on comfort measures. Respoke with Dr. Subramanian and will leave the Levophed on until family has finished visiting and then DC. No other changes.
[2023-09-20] MEDS: VERSED 100 IV ×2 (14:08→16:52)
--- NOTE | 2023-09-20 15:00 | SUR.PHASEI ---
Assessment is unchanged. Pts daughter in to see pt and updated. Support given.
--- NOTE | 2023-09-20 15:35 | CM ---
CM following re: discharge planning.
Discussed in Rounds, reviewed pt's chart, met with pt. Per Rounds meeting, pt remains intubated, discontinue HD, terminal extubation at some point today, [facility] notified
D/C plan: terminal extubation.
CM is available for emotional support.
--- NOTE | 2023-09-20 15:37 | CHAP ---
Emotional and spiritual support provided for Mr. Dewitt and family at bedside. Prayer blanket given, prayers of commendation shared. Family reports he received Sacrament of the Sick (Last Rites) yesterday from their jones finishing lab technician.
[2023-09-20] MEDS: D10W 1000 IV (16:53)
--- NOTE | 2023-09-20 17:11 | PTCARENOTE ---
Family in to visit and daughter in with pt currently. Assessment is unchanged. No corneal noted. Gag is minimal and cough is weak at best. Suctioned for scant amt of yellowish secretions. Does overbreathe the vent RR 22-24. Non-labored. VS as
documented. Levophed at 2 mcg. Versed gtt at 18 mg/hr. D10 at 50 mg/hr. Turned and repositioned. Mouth and skin care given. Support given.
--- NOTE | 2023-09-20 18:35 | RESPNOTE ---
Patient extubated to room air per family wishes and MD order for comfort care
[2023-09-20] MEDS: MORPHINE SULFATE 2 MG IV (18:38)
--- NOTE | 2023-09-20 18:42 | PTCARENOTE ---
Spoke with pts daughter and ok given to extubate pt and continue with comfort measures. As such pt extubated at 1830 and Levophed Dc'd. Pt not responsive but breathing shallow and tachynic in the 30's. Medicated currently with Morphine 2 mg IV.
Support given
--- NOTE | 2023-09-20 20:00 | PTCARENOTE ---
patient received on comfort care, unresponsive. versed gtt infusing as ordered.
--- NOTE | 2023-09-20 20:24 | W.PN.DEATH ---
Pronouncement of
-
Called to see patient to pronounce.
No spontaneous heart tones or respirations noted.
Patient not responsive to verbal stimuli.
Patient is pronounced .
Time of : 20:17
Date of : 09/20/23
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
Family Notified: Yes
[2023-09-23 18:14] LABS: T. pallidum Ab By TP-PA Reactive (Non Reactive)
== END 2023-09-20 20:17 | disposition expired | DRG 640 ==
LOC: ICU 16:22
PROVIDERS: Family Medicine; Internal Medicine; Nurse Practitioner Family; Nurse Practitioner Gerontology; Nurse Practitioner Primary Care; Physician Assistant; Physician Assistant Medical; Radiology Diagnostic Radiology; Specialist; ADMITTING PHYSICIAN Internal Medicine; ATTENDING PHYSICIAN Internal Medicine; CONSULT PHYSICIAN Internal Medicine; CONSULT PHYSICIAN Internal Medicine Cardiovascular Disease; CONSULT PHYSICIAN Internal Medicine Critical Care Medicine; CONSULT PHYSICIAN Specialist; CONSULT PHYSICIAN Student in an Organized Health Care Education/Training Program; EMERGENCY PHYSICIAN Emergency Medicine; FAMILY PHYSICIAN General Practice
PROC: 5A1D70Z Performance of Urinary Filtration, Intermittent, Less than 6 Hours Per Day (ICD-10-PCS; 2023-09-14)
PROC: 5A1945Z Respiratory Ventilation, 24-96 Consecutive Hours (ICD-10-PCS; 2023-09-16)
PROC: 30243N1 Transfusion of Nonautologous Red Blood Cells into Central Vein, Percutaneous Approach (ICD-10-PCS; 2023-09-16)
PROC: 0BH17EZ Insertion of Endotracheal Airway into Trachea, Via Natural or Artificial Opening (ICD-10-PCS; 2023-09-16)
PROC: 02HV33Z Insertion of Infusion Device into Superior Vena Cava, Percutaneous Approach (ICD-10-PCS; 2023-09-16)
PROC: 0DH67UZ Insertion of Feeding Device into Stomach, Via Natural or Artificial Opening (ICD-10-PCS; 2023-09-18)
DX: E87.1 Hypo-osmolality and hyponatremia (principal); A41.9 Sepsis, unspecified organism; G92.8 Other toxic encephalopathy; I50.31 Acute diastolic (congestive) heart failure; J69.0 Pneumonitis due to inhalation of food and vomit; J96.01 Acute respiratory failure with hypoxia; N18.6 End stage renal disease; R40.20 Unspecified coma; R65.21 Severe sepsis with septic shock; I5A Non-ischemic myocardial injury (non-traumatic); J90 Pleural effusion, not elsewhere classified; I31.39 Other pericardial effusion (noninflammatory); D62 Acute posthemorrhagic anemia; D68.32 Hemorrhagic disorder due to extrinsic circulating anticoagulants; K92.1 Melena; G93.1 Anoxic brain damage, not elsewhere classified; C64.9 Malignant neoplasm of unspecified kidney, except renal pelvis; C78.7 Secondary malignant neoplasm of liver and intrahepatic bile duct; C78.6 Secondary malignant neoplasm of retroperitoneum and peritoneum; I13.2 Hypertensive heart and chronic kidney disease with heart failure and with stage 5 chronic kidney disease, or end stage renal disease; Z99.11 Dependence on respirator [ventilator] status; Q21.12 Patent foramen ovale; N39.0 Urinary tract infection, site not specified; Z51.5 Encounter for palliative care; R53.1 Weakness; E89.0 Postprocedural hypothyroidism; E11.22 Type 2 diabetes mellitus with diabetic chronic kidney disease; E78.00 Pure hypercholesterolemia, unspecified; D64.9 Anemia, unspecified; R26.2 Difficulty in walking, not elsewhere classified; I08.0 Rheumatic disorders of both mitral and aortic valves; I46.2 Cardiac arrest due to underlying cardiac condition; I49.01 Ventricular fibrillation; E87.70 Fluid overload, unspecified; K21.9 Gastro-esophageal reflux disease without esophagitis; R62.7 Adult failure to thrive; R59.0 Localized enlarged lymph nodes; E11.649 Type 2 diabetes mellitus with hypoglycemia without coma; Z66 Do not resuscitate; Z99.2 Dependence on renal dialysis; Z79.02 Long term (current) use of antithrombotics/antiplatelets; Z79.82 Long term (current) use of aspirin; Z79.890 Hormone replacement therapy; Z79.84 Long term (current) use of oral hypoglycemic drugs; Z85.46 Personal history of malignant neoplasm of prostate; I69.392 Facial weakness following cerebral infarction; Z92.3 Personal history of irradiation; Z87.442 Personal history of urinary calculi
CPT/HCPCS: 36600; 70450; 71045; 71260; 74018; 74177; 80048; 80053; 80202; 81003; 81015; 82140; 82330; 82607; 82728; 82746; 82805; 82962; 83540; 83550; 83605; 83690; 83735; 83880; 83930; 83935; 84132; 84300; 84302; 84439; 84443; 84484; 85014; 85018; 85025; 85027; 85610; 85730; 86592; 86780; 86850; 86900; 86901; 86920; 87040; 87070; 87086; 87205; 87449; 87641; 87899; 93005; 93306; 94002; 94003; 95714; 97116; 97163; 97167; 97530; 99284; C9254; G0257; J2250; J2916; P9016; P9047; Q5106; Q9967